=== PATIENT | male | born 1940 | race Caucasian/White ===

== ENCOUNTER 2016-04-07 14:51 | Emergency (ER) | payer OTHER ==
--- NOTE | 2016-04-07 18:13 | ED CLINICAL REPORT ---
Clinical Report - Physicians/Mid Levels [facility] [address] [place] [address] 04/07/2016 14:53 Patient: MIKAYLA PEPPER Time Seen: 15:06. Arrived- By private vehicle. Historian- patient. HISTORY OF PRESENT ILLNESS Chief Complaint: WEAKNESS. This started weeks ago and is still present and now worse. Severity described as moderate at its maximum. When seen in the E.D., severity described as moderate. Modifying factors- worsened by standing up. Relieved by nothing. Not described as a sense of rotation, movement, falling or confusion. Not described as feeling off balance, light-headed or faint. Described as feeling weak all over. No nausea, vomiting, hearing loss or tinnitus. Similar symptoms previously: Milder. Recent medical care: The patient was seen recently at another facility in a clinic. REVIEW OF SYSTEMS No headache, double vision, fainting episodes, head injury or chest pain. No palpitations, black stools, numbness, bloody stools or fever. No sore throat, cough, difficulty breathing, abdominal pain or diarrhea. No difficulty with urination, skin rash, enlarged lymph nodes, chills or joint pain. The patient has had weakness. No difficulty walking. All systems otherwise negative, except as recorded above. PAST HISTORY Problems: Anemia. Pulmonary Embolism. Hypercholesterolemia. Prostate Cancer. 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 Additional Surgeries: Biopsy of prostate. Right knee. Shoulder Surgery. Tonsillectomy. Vasectomy. Medications: Atorvastatin Calcium Oral. Lupron Depot Intramuscular. NexIUM Oral. Allergies: No Known Drug Allergy. SOCIAL HISTORY Never smoker. No alcohol use or drug use. ADDITIONAL NOTES The nursing notes have been reviewed. PHYSICAL EXAM Vital Signs: 04/07/2016 15:14 BP: 109/67. HR: 103. RR: 18. O2 saturation: 100%. Have been reviewed. Appearance: Alert. No acute distress. (PT is thin, and appears chronically ill, but does not appear toxic.). Eyes: Pupils equal, round and reactive to light. No nystagmus. Extraocular movements normal. ENT: Normal ENT inspection. Moist mucous membranes. Pharynx normal. Neck: Normal inspection. Neck supple. CVS: Normal heart rate and rhythm. Heart sounds normal. Pulses normal. Respiratory: No respiratory distress. Breath sounds normal. Abdomen: Soft and nontender. Back: Normal inspection. No CVA tenderness. Skin: Skin warm and dry. Moderate pallor. No rash. Normal skin turgor. Extremities: Extremities exhibit normal ROM. No lower extremity edema. Neuro: Alert. Oriented X 3. Mood/affect normal. Speech normal. Cranial nerves normal (as tested). No cerebellar findings. No motor deficit. No sensory deficit. LABS, X-RAYS, AND EKG EKG: EKG time: (1636). No acute process. No acute ischemia. Normal sinus rhythm. Rate: 86. Normal P waves. Normal BERTHA. RBBB. Decreased QRS voltage. Left axis deviation. Normal ST and T waves, QT and QTc. Prior EKG unavailable. The study has been interpreted contemporaneously by me. The study has been independently viewed by me. The EKG appears to be a good tracing. I agree with and confirm the computer reading of the EKG. Rhythm Strip #1: Time: (1510). Rate= 88. Normal sinus rhythm. Regular rhythm. Narrow QRS complexes. No ectopy. Conduction normal. Normal ST segments and T waves. The study was interpreted by me. Laboratory Tests: UA-Culture if indicated: (KEATON: 04/07/2016 14:56) ( MsgRcvd 04/07/2016 17:33) Final results Test Result Flag Units (Reference) URINE COLOR YELLOW URINE APPEARANCE CLOUDY URINE GLUCOSE NEGATIVE (NEGATIVE) URINE BILIRUBIN NEGATIVE (NEGATIVE) URINE KETONE NEGATIVE (NEGATIVE) URINE SPECIFIC GRAVITY 1.010 (1.010-1.030) URINE PH 6.0 (5.0-8.0) URINE PROTEIN 1+ (NEGATIVE) URINE UROBILINOGEN 0.2 EU/dL (0.2-1.0) URINE NITRITE NEGATIVE (NEGATIVE) URINE BLOOD 2+ (NEGATIVE) URINE LEUK ESTERASE POSITIVE (NEGATIVE) URINE RBC 5-10 rbc/hpf (0-1) URINE WBC 25-50 wbc/hpf (0-1) URINE EPITHELIAL CELLS 1-3 EPI/hpf (0-5) URINE BACTERIA MODERATE (2+ TO 3+) (NONE SEEN) URINE COMMENT CULTURE INDICATED URINE CULTURES ARE SET-UP BASED ON THE FOLLOWING CRITERIA:POSITIVE NITRITEPOSITIVE LEUKOCYTE ESTERASEGREATER THAN 10 WHITE BLOOD CELLSMODERATE (2+) OR GREATER BACTERIA CBC w Diff: (KEATON: 04/07/2016 16:15) ( [facility] 04/07/2016 16:49) Final results Test Result Flag Units (Reference) WHITE BLOOD COUNT 10.0 K/uL (4.5-11.5) RED BLOOD COUNT 3.14 L M/uL (4.50-5.90) HEMOGLOBIN 9.1 L gm/dL (13.5-17.5) HEMATOCRIT 28.6 L % (41.0-53.0) MEAN CELL VOLUME 91 fL (80-100) MEAN CORPUSCULAR HGB 29 pg (26-34) MEAN CORPUSCULAR HGB CONC 32 g/dL (31-37) RED CELL DISTRIBUTION WIDTH 17.1 H % (11.6-14.8) PLATELET COUNT 177 K/uL (150-400) NEUTROPHIL % 90.1 H % (50-75) LYMPH % 4.3 L % (25-40) MONO % 5.0 % (3-14) EOSINOPHIL % 0.2 % (0-4) BASOPHIL % 0.4 % (0-2) BNP: (KEATON: 04/07/2016 16:15) ( [facility] 04/07/2016 16:48) Final results Test Result Flag Units (Reference) B-TYPE NATRIURETIC PEPTIDE 30.0 pg/ml (5-100) CHEM 13 PANEL: (KEATON: 04/07/2016 16:15) ( [facility] 04/07/2016 16:46) Final results Test Result Flag Units (Reference) GLUCOSE 110 mg/dL (70-110) BUN 42 H mg/dL (7-18) CREATININE 1.6 H mg/dL (0.6-1.3) Estimated GFR 45.01 mL/min Estimated GFR- 54.55 mL/min Note: Persistent reduction over 3 months in eGFR<60 mL/min/1.73 m2 defines CKD. Patients with eGFR values>=60 mL/min/1.73 m2 may also have CKD if evidence ofpersistent proteinuria. Additional information may be foundat www.kidney.org. SODIUM 141 mmol/L (136-145) POTASSIUM 4.2 mmol/L (3.5-5.1) CHLORIDE 108 H mmol/L (98-107) CARBON DIOXIDE 20 L mmol/L (21-32) CALCIUM 8.6 mg/dL (8.5-10.1) TOTAL PROTEIN 7.0 g/dL (6.4-8.2) ALBUMIN 2.4 L g/dL (3.3-5.0) BILIRUBIN, TOTAL 0.5 mg/dL (0.0-1.0) ALKALINE PHOSPHATASE 128 H U/L (46-116) AST (SGOT) 15 U/L (15-37) ALT (SGPT) 15 U/L (12-78) MAGNESIUM 2.3 mg/dL (1.8-2.4) CPK 11 L U/L (24-260) TROPONIN I <0.05 L ng/mL (0.00-1.5) TROPONIN REFERENCE RANGE:<0.1 NEGATIVE0.1-1.5 INDETERMINANT>1.5 POSITIVE . Pulse Oximetry: 04/07/2016 15:14 O2 saturation: 100%. (FIO2 - room air). Interpretation: normal. PROGRESS AND PROCEDURES Course of Care: Pt was worked up for his weakness and fatigue, and was found to have moderate anemia, which I suspect is from his chronic disease and cancer treatment. He was also found to have a UTI, for which he was started on Bactrim. Pt wished to go home, and I felt this was reasonable. Patient counseled in person regarding the patient's stable condition, test results, diagnosis and need for follow-up. Concerns were addressed. Old medical records reviewed. Disposition: Discharged. Condition: stable and improved. CLINICAL IMPRESSION Moderate chronic anemia associated with cancer. Acute urinary tract infection with cystitis. INSTRUCTIONS Drink plenty of fluids. Warnings: GENERAL WARNINGS: Return or contact your physician immediately if your condition worsens or changes unexpectedly, if not improving as expected, or if other problems arise. Prescription Medications: Bactrim DS 800 mg / 160 mg: take 1 tablet orally every 12 hours for 7 days. No refill. Substitution is permissible. Follow-up: Follow up with your doctor as scheduled. Understanding of the discharge instructions verbalized by patient and family. (Electronically signed by Radha Gonzalez MD 04/11/2016 20:02) Addenda for MIKAYLA PEPPER VisitID: [id number] Date: 04/07/2016 04/10/2016 13:55 Phone call placed to pt at [phone] to change antibiotic to Cipro 500 mg BID x 5 days, advised by SHAN Fuller. Voicemail message left to call back. (Electronically signed by Josefina Coats R.N. - 04/10/2016 13:55) 04/10/2016 14:22 Called Rx into [facility] after speaking to on phone. Advised her also that pharmacy closes at 3pm today. (Electronically signed by Josefina Coats R.N. - 04/10/2016 14:22)
--- NOTE | 2016-04-07 18:13 | ED ORDER SUMMARY ---
..... Patient: MIKAYLA PEPPER OrderSheet [facility] VisitID: [id number] [place] [address] 75y, M Registration Date/Time: 04/07/2016 ORDER SHEET Weight: 66.6 kg (stated) Allergies: No Known Drug Allergy GENERAL ORDERS: Individual Pension Adviser (Continuous) (15:04/07/2016 Mike VINCENT) (16:04 HOShaughnessy R.N.) Cardiac Panel Stat (:04/07/2016 Mike VINCENT) (Ack 15:12 LTapper) (17:05 HOShaughnessy R.N.) BNP Urgent (:04/07/2016 Mike VINCENT) (Ack 15:12 LTapper) (17:05 HOShaughnessy R.N.) UA-Culture if indicated Urgent (:04/07/2016 Mike VINCENT) (Ack 15:12 LTapper) (17:05 HOShaughnessy R.N.) Oxygen (2 L/min) (NC) (15:04/07/2016 Mike VINCENT) (16:04 HOShaughnessy R.N.) Pulse oximeter (:04/07/2016 Mike VINCENT) (16:04 HOShaughnessy R.N.) EKG - ER Stat (:04/07/2016 Mike VINCENT) (Ack 15:12 LTapper) (16:40 RKaruga) MEDICATION ORDERS: Bactrim DS PO (Tablet 800-160 mg) 1 tab (NOW) (17:35 04/07/2016 Miek VINCENT) (17:42 HOShaughnessy R.N.) IV FLUIDS: IV NS : initial bolus 1000 mL (1000 mL/hr), then none - (NOW) (15:04/07/2016 Mike VINCENT) (16:03 HOShaughnessy R.N.) ORDER SHEET NOTES: [Electronically signed by Bruno Howe R.N. (19:30 04/07/2016)] [Electronically signed by Radha Gonzalez MD (20:02 04/11/2016)] [Electronically locked/signed by Bruno Howe R.N. (19:30 04/07/2016)]
--- NOTE | 2016-04-07 18:13 | ED ORDER SUMMARY ---
..... Patient: MIKAYLA PEPPER OrderSheet [facility] VisitID: [id number] [place] [address] 75y, M Registration Date/Time: 04/07/2016 ORDER SHEET Weight: 66.6 kg (stated) Allergies: No Known Drug Allergy GENERAL ORDERS: Education And Outreach Coordinator (Continuous) (15:04/07/2016 Mike VINCENT) (16:04 HOShaughnessy R.N.) Cardiac Panel Stat (:04/07/2016 Mike VINCENT) (Ack 15:12 LTapper) (17:05 HOShaughnessy R.N.) BNP Urgent (:04/07/2016 Mike VINCENT) (Ack 15:12 LTapper) (17:05 HOShaughnessy R.N.) UA-Culture if indicated Urgent (:04/07/2016 Mike VINCENT) (Ack 15:12 LTapper) (17:05 HOShaughnessy R.N.) Oxygen (2 L/min) (NC) (15:04/07/2016 Mike VINCENT) (16:04 HOShaughnessy R.N.) Pulse oximeter (:04/07/2016 Mike VINCENT) (16:04 HOShaughnessy R.N.) EKG - ER Stat (:04/07/2016 Mike VINCENT) (Ack 15:12 LTapper) (16:40 RKaruga) MEDICATION ORDERS: Bactrim DS PO (Tablet 800-160 mg) 1 tab (NOW) (17:35 04/07/2016 Mike VINCENT) (17:42 HOShaughnessy R.N.) IV FLUIDS: IV NS : initial bolus 1000 mL (1000 mL/hr), then none - (NOW) (15:04/07/2016 Mike VINCENT) (16:03 HOShaughnessy R.N.) ORDER SHEET NOTES: [Electronically signed by Bruno Howe R.N. (19:30 04/07/2016)] [Electronically signed by Radha Gonzalez MD (20:02 04/11/2016)] [Electronically locked/signed by Bruno Howe R.N. (19:30 04/07/2016)]
--- NOTE | 2016-04-07 18:13 | ED NURSING NOTES ---
Clinical Report - Nurses [facility] [address] [place] [address] 04/07/2016 14:53 Patient: MIKAYLA PEPPER TRIAGE Chief Complaint: FATIGUE (weakness). --15:16 Bruno Howe R.N. 15:14 04/07/16. BP: 109/67. HR: 103. RR: 18. O2 saturation: 100%. --15:16 Bruno Howe R.N. 15:35 04/07/16. Temp: 98.4 F (oral). --15:35 Bruno Howe R.N. Alert. No acute distress. JOSH COMA SCORE: [place] Coma Scale: 15- eyes open spontaneously (4); best verbal response- oriented x 4 (5); best motor response- obeys commands (6). --15:36 Bruno Howe R.N. Weight: 66.6 kg stated. Height/Length: 72 inches Per Patient. BMI: 19.9. --15:35 Bruno Howe R.N. Medications Atorvastatin Calcium Oral. Lupron Depot Intramuscular. NexIUM Oral. --19:30 Bruno Howe R.N. Allergies No Known Drug Allergy. --19:30 Bruno Howe R.N. History Arrived by private vehicle, and accompanied by family. Onset was gradual. (about 3 weeks). --15:16 Bruno Howe R.N. ( Patient presents to the ED at the referral from the clinic for symptoms of weakness and weight loss. Patient has been diagnosed with prostate cancer with metastasis to the bone.). --15:17 Bruno Howe R.N. The patient has had weakness. --16:05 Bruno Howe R.N. FALL RISK ASSESSMENT: Fall risk assessment completed. Risk factors identified include postural hypotension and patient age greater than 65 years, history of fall and impairment of mobility. Fall interventions initiated. Patient placed on stretcher. Side rails up x1. Brakes on Bed in low position. Family at bedside. Call light in reach of patient. Instructed not to get up without assistance. --16:05 Bruno Howe R.N. PROBLEMS: Anemia. Pulmonary Embolism. Hypercholesterolemia. Prostate Cancer. 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 --16:04 Bruno Howe R.N. ADDITIONAL SURGERIES: Biopsy of prostate. Right knee. Shoulder Surgery. Tonsillectomy. Vasectomy. --16:04 Bruno Howe R.N. NURSING PROGRESS NOTES 16:03 04/07/2016 Site #1 started via IV in the right hand with an 20g angiocath; one attempt. Saline lock flushed with 10 mL saline. --16:03 Bruno Howe R.N. 16:03 04/07/2016 Started IV Fluids IV NS (Saline); bolus of 1000 mL wide open via site #1. Allergies verified and confirmed 5 rights. IV patency established. IV site checked: no pain, redness, or swelling. IV flushed thoroughly pre- and post-medication administration. --16:03 Bruno Howe R.N. 16:33 04/07/16. BP: 114/49. HR: 93. RR: 18. O2 saturation: 99%. --16:33 Bruno Howe R.N. The patient is calm. Overall patient status is improved- he states feels the same. --16:34 Bruno Howe R.N. 16:36. EKG time: (1636). EKG was performed by a tech and shown to the ED physician. --16:40 Prachi Jasso 16 fr in/out catheterization. During procedure hand hygiene observed and sterile equipment and aseptic technique used. Return of 950 mL urine. He tolerated procedure well. Patient ID band checked: patient confirmed. Instructions provided to collect clean catch urine and patient verbalized understanding urine collected with return of yellow-colored cloudy urine; odor is normal; sample sent to lab for urinalysis and culture. Specimen labeled in the presence of the patient. --17:05 Bruno Howe R.N. 17:07 04/07/16. BP: 117/50. HR: 71. RR: 16. O2 saturation: 99%. Pain level now: 0/10. --17:07 Bruno Howe R.N. 17:42 04/07/2016 Bactrim DS (Sulfamethoxazole-TMP DS) PO Tablets 1 tab given. Allergies verified and confirmed 5 rights. --17:42 Bruno Howe R.N. 17:56 04/07/16. BP: 100/55. HR: 91. RR: 16. O2 saturation: 100%. --17:56 Bruno Howe R.N. The patient is calm. Overall patient status is improved- he states feels better. RESPIRATORY: No respiratory distress. Breath sounds normal. CVS: Normal sinus rhythm noted. SKIN: Skin is warm and dry. Skin color within normal limits. --17:56 Bruno Howe R.N. 19:28 04/07/2016 IV Fluids IV NS Discontinued: bag #1 completed. Total amount infused: 1000 mL. IV patency established. IV site checked: no pain, redness, or swelling. IV flushed thoroughly. --19:28 Bruno Howe R.N. DISPOSITION / DISCHARGE Condition at departure: improved. The goals identified in the patient's plan of care were met. No learning barriers present. Discharge instructions provided and reviewed with the patient. Reviewed medication(s) side effects, precautions, dosing and course information. Reviewed referrals. The patient was discharged home and accompanied by spouse and family. He left the Emergency Department ambulatory and via private vehicle. Family member driving. FALL RISK ASSESSMENT: Fall risk assessment completed. No fall risk identified. --18:46 Bruno Howe R.N. 18:44 04/07/16. BP: 99/58. HR: 95. RR: 16. O2 saturation: 100%. Temp: 98.6 F. --18:46 Bruno Howe R.N. Locked/Released at 04/07/2016 19:30 by Bruno Howe R.N.
--- NOTE | 2016-04-11 20:03 | ED MAR SUMMARY ---
..... Medication Administration Record [facility] [address] [place] [address] Patient: MIKAYLA PEPPER Visit ID: [id number] 75y, M Weight: 66.6 kg Height/Length: 72 in BMI: 19.9 ALLERGIES: No Known Drug Allergy Start 16:03 04/07/2016 Bruno Howe R.N., Stop 19:28 04/07/2016 Bruno Howe R.N. Medication Administered: IV NS (SALINE), Dose: IV Fluids, Bolus: 1000 mL wide open, Site: #1 right hand. Medication Ordered: IV NS : initial bolus 1000 mL (1000 mL/hr), then none - (NOW). Given 17:42 04/07/2016 Bruno Howe R.N. Medication Administered: BACTRIM DS [PO] (SULFAMETHOXAZOLE-TMP DS), Dose: 1 tab Tablets PO. Medication Ordered: Bactrim DS PO (Tablet 800-160 mg) 1 tab (NOW).
--- NOTE | 2016-04-11 20:03 | ED DISCHARGE INSTRUCTIONS ---
Patient: MIKAYLA PEPPER General Instructions [facility] VisitID: [id number] [place] [address] 75y, M Registration Date/Time: 04/07/2016 Moderate chronic anemia associated with cancer. Acute urinary tract infection with cystitis. INSTRUCTIONS Drink plenty of fluids. Warnings: GENERAL WARNINGS: Return or contact your physician immediately if your condition worsens or changes unexpectedly, if not improving as expected, or if other problems arise. Prescription Medications: Bactrim DS 800 mg / 160 mg: take 1 tablet orally every 12 hours for 7 days. No refill. Substitution is permissible. Follow-up: Follow up with your doctor as scheduled. Understanding of the discharge instructions verbalized by patient and family. ADDITIONAL INFORMATION Anemia [Type Not Specified, Adult] Red blood cells carry oxygen to the tissues of the body. Anemia is a condition where the size or number of red blood cells in the body is reduced. Iron is needed to make red blood cells. The most common cause of anemia is iron deficiency. This may be due to: i) Blood loss (heavy menstrual periods or bleeding from the stomach or intestines); or, ii) Not eating enough iron-containing foods. Other causes of anemia include certain vitamin deficiencies, chronic kidney disease or certain other chronic illnesses. Anemia causes a feeling of being tired and run down. When anemia becomes severe, the skin becomes pale and there is shortness of breath with exertion. Headaches, dizziness, leg cramps with exertion, drowsiness and fatigue are other common symptoms. Home Care: If you are having symptoms of anemia listed above: -- Do not overexert yourself. -- Talk to your doctor before flying on an airplane or traveling to high altitudes. Follow Up with your doctor as advised by our staff. Additional blood testing may be required to determine the exact cause of your anemia. If testing was done on this visit, it may take several days to get all of the results. You may call this facility or follow up with your own doctor to get the results. Get Prompt Medical Attention if any of the following occur: -- Shortness of breath or chest pain -- Worsening of dizziness, fainting -- Vomiting blood or passing red or black-colored stool Bladder Infection,Male (Adult) A bladder infection ("cystitis" or "UTI") usually causes a constant urge to urinate, and a burning when passing urine. Urine may be cloudy, smelly or dark. There may be also be pain in the lower abdomen. Cystitis in males is not common. It may be caused by a partial blockage in the urinary system that keeps the bladder from emptying completely. This is most often related to an enlarged prostate gland. Home Care: Drink lots of fluids (at least 6-8 glasses a day). This will flush the bacteria out of your bladder. Avoid sexual intercourse until your symptoms are gone. Avoid caffeine, alcohol, and spicy foods. They could irritate the bladder. A bladder infection is treated with antibiotics. You may also be given Pyridium (generic - phenazopyridine) to reduce burning with urination. This will cause urine to become a bright orange color, which can stain clothing. Follow Up with your doctor or this facility if ALL symptoms have not cleared within five days. It is important to keep your follow up appointment to discuss with your doctor the need for further tests of the urinary tract. Get Prompt Medical Attention if any of the following occur: Fever of 100.4F (38C) or higher, or as directed by your healthcare provider No improvement by the third day of treatment Increasing back or abdominal pain Repeated vomiting; unable to keep medicine down Weakness, dizziness or fainting You have been given the following additional information: Anemia, Type Not Specified (Adult) Bladder Infection, Male (Adult) (Electronically signed by Radha Gonzalez MD 04/11/2016 20:02)
--- NOTE | 2016-04-11 20:03 | ED MED RECONCILIATION SUMMARY ---
Patient: MIKAYLA PEPPER Medication Reconciliation Report [facility] VisitID: [id number] [address] [place] [address] 75y, M Registration Date/Time: 04/07/2016 Weight: 66.6 kg Height/Length: 72 in. BMI: 19.9 ALLERGIES: No Known Drug Allergy The patient's Home Medications are listed below: THE FOLLOWING MEDICATIONS NEED TO BE RECONCILED: Atorvastatin Calcium Oral Lupron Depot Intramuscular NexIUM Oral The source(s) of the original Home Medication information: Not obtained. The following Medications were given to the patient in the Emergency Department: IV NS IV Fluids bolus 1000 mL wide open, administered: 04/07/2016 4:03:00 PM Bactrim DS [PO] PO 1 tab, administered: 04/07/2016 5:42:00 PM The following Medications were prescribed to the patient: Bactrim DS 800 mg / 160 mg: take 1 tablet orally every 12 hours for 7 days. No refill. Substitution is permissible. -- Radha Gonzalez MD
--- NOTE | 2016-04-11 20:03 | ED MAR SUMMARY ---
..... Medication Administration Record [facility] [address] [place] [address] Patient: MIKAYLA PEPPER Visit ID: [id number] 75y, M Weight: 66.6 kg Height/Length: 72 in BMI: 19.9 ALLERGIES: No Known Drug Allergy Start 16:03 04/07/2016 Bruno Howe R.N., Stop 19:28 04/07/2016 Bruno Howe R.N. Medication Administered: IV NS (SALINE), Dose: IV Fluids, Bolus: 1000 mL wide open, Site: #1 right hand. Medication Ordered: IV NS : initial bolus 1000 mL (1000 mL/hr), then none - (NOW). Given 17:42 04/07/2016 Bruno Howe R.N. Medication Administered: BACTRIM DS [PO] (SULFAMETHOXAZOLE-TMP DS), Dose: 1 tab Tablets PO. Medication Ordered: Bactrim DS PO (Tablet 800-160 mg) 1 tab (NOW).
--- NOTE | 2016-04-11 20:03 | ED MED RECONCILIATION SUMMARY ---
Patient: MIKAYLA PEPPER Medication Reconciliation Report [facility] VisitID: [id number] [address] [place] [address] 75y, M Registration Date/Time: 04/07/2016 Weight: 66.6 kg Height/Length: 72 in. BMI: 19.9 ALLERGIES: No Known Drug Allergy The patient's Home Medications are listed below: THE FOLLOWING MEDICATIONS NEED TO BE RECONCILED: Atorvastatin Calcium Oral Lupron Depot Intramuscular NexIUM Oral The source(s) of the original Home Medication information: Not obtained. The following Medications were given to the patient in the Emergency Department: IV NS IV Fluids bolus 1000 mL wide open, administered: 04/07/2016 4:03:00 PM Bactrim DS [PO] PO 1 tab, administered: 04/07/2016 5:42:00 PM The following Medications were prescribed to the patient: Bactrim DS 800 mg / 160 mg: take 1 tablet orally every 12 hours for 7 days. No refill. Substitution is permissible. -- Radha Gonzalez MD
== END 2016-04-07 18:47 | disposition home or self-care (01) ==
LOC: ED SRH 14:51
DX: D63.0 Anemia in neoplastic disease (principal); C61 Malignant neoplasm of prostate; N30.00 Acute cystitis without hematuria; E78.00 Pure hypercholesterolemia, unspecified; Z79.899 Other long term (current) drug therapy
CPT/HCPCS: 90004; 90100; 90148; 90469; 90616; 91320; 92610; 92720; 95059

== ENCOUNTER 2016-04-24 09:37 | Emergency (ER) | payer OTHER ==
--- NOTE | 2016-04-24 11:48 | ED CLINICAL REPORT ---
Clinical Report - Physicians/Mid Levels [facility] [address] [place] [address] 04/24/2016 9:38 [id number] Time Seen: 10:08 Apr 24 2016. Arrived- By private vehicle. Historian- patient. CPT: ER phys charges level 4 (#[id number]). HISTORY OF PRESENT ILLNESS Chief Complaint: FERREIRA PROBLEM. This started today Pt cut his ferreira and the the proximal end with the balloon retracted and eneded up in the bladder. He does not have a good reason as to why he cut the ferreira. He was discharged recently from another hospital with prostate cancer and a ferreira. The ferreira is new to him. and is still present. The problem is described as moderate. No penile discharge, discomfort with urination, urinary frequency, genital lesion or testicular pain. He has had Ferreira catheter problems. Sexual history is noncontributory. Similar symptoms previously: None. Recent medical care: The patient was seen recently by a health care provider. REVIEW OF SYSTEMS No flank pain, hematuria, abdominal pain, vomiting or diarrhea. No sore throat, chest pain, difficulty breathing, cough or joint pain. No skin rash. Poor po. All systems otherwise negative, except as recorded above. PAST HISTORY Has Ferreira catheter. (for 3 days). Prostate cancer. Medications: Cipro Oral, , UTI. Atorvastatin Calcium Oral. Lupron Depot Intramuscular. NexIUM Oral. Allergies: No Known Drug Allergy. SOCIAL HISTORY Former smoker. No alcohol use or drug use. ADDITIONAL NOTES The nursing notes have been reviewed. PHYSICAL EXAM Vital Signs: 04/24/2016 10:04 BP: 128/64. HR: 89. RR: 16. O2 saturation: 99%. Temp: 97.1 F. Appearance: Alert. No acute distress. ENT: Pharynx normal. Neck: Neck supple. CVS: Heart sounds normal. Respiratory: No respiratory distress. Abdomen: Soft and nontender. : Normal genitalia. (No ferreira catheter remnants seen.). Skin: Skin warm. Normal skin color. No rash. Extremities: Extremities exhibit normal ROM. Neuro: No motor deficit. No sensory deficit. PROGRESS AND PROCEDURES Course of Care: Bedside US by myself showed suspicious shadow for FB, floating in bladder. Discussed with urology and she recommends placing another ferreira and she will call patient on Monday for appointment to evaluate bladder FB. Pt is able to dribble urine and has no pain. There is no blood in the urine. The bladder scan shows 347 ml in the bladder. New ferreira catheter placed. Discussed case with patient's primary care provider, (urologist DR. Radha Alonso: Rusty and this is her patient.). Reviewed test results. Agreed upon treatment plan. Health care provider will see patient in office. Patient/family counseled. Disposition: Discharged. Condition: stable. CLINICAL IMPRESSION Bladder FB due to cut ferreira. Metastatic prostate cancer. New 14 F ferreira placement. INSTRUCTIONS Warnings: Further evaluation is necessary. GENERAL WARNINGS: Return or contact your physician immediately if your condition worsens or changes unexpectedly, if not improving as expected, or if other problems arise. Your Current Medications: CONTINUE TAKING THE FOLLOWING MEDICATIONS: Atorvastatin Calcium Oral. Cipro Oral : UTI. Lupron Depot Intramuscular. NexIUM Oral. Follow-up: Follow up with your doctor Your urologist will call you tomorrow. Understanding of the discharge instructions verbalized by patient and family. Discharge instructions reviewed with and understanding was verbalized by spouse. (Electronically signed by David Govea MD 04/24/2016 18:09)
--- NOTE | 2016-04-24 11:48 | ED NURSING NOTES ---
Clinical Report - Nurses [facility] [address] [place] [address] 04/24/2016 9:38 Patient: MIKAYLA PEPPER TRIAGE Triage time 10:04. Acuity: LEVEL 3. Chief Complaint: FERREIRA PROBLEM and (Pt cut his catheter yesterday because he thought he pas going to urinate on himself. Pt did not pull out the whole catheter.). 10:13 04/24/16. SEPSIS SCREEN: Sepsis Screen. Negative (no infection suspected/documented). JOSH COMA SCORE: Brent Coma Scale: 15- eyes open spontaneously (4); best verbal response- oriented x 4 (5); best motor response- obeys commands (6). --10:14 Mikayla Conroy R.N. 10:04 04/24/16. BP: 128/64. HR: 89. RR: 16. O2 saturation: 99% on room air. Temp: 97.1 F (axillary). --10:14 Mikayla Conroy R.N. 10:05 04/24/16. Pain level now: 0/10. --14:26 Mikayla Conroy R.N. Weight: 68 kg stated. Height/Length: 72 inches Per Patient. BMI: 20.3. --10:14 Mikayla Conroy R.N. Medications Atorvastatin Calcium Oral. Lupron Depot Intramuscular. NexIUM Oral. --10:11 Mikayla Conroy R.N. Cipro Oral, , UTI. --10:11 Mikayla Conroy R.N. Allergies No Known Drug Allergy. --10:09 Mikayla Conroy R.N. History Historian: patient and family. This started yesterday. SOCIAL HX: Former smoker, end date 1973 (cigarette). No alcohol use or drug use. ABUSE ASSESSMENT: No report of abuse. --10:14 Mikayla Conroy R.N. PROBLEMS: UTI - Urinary Tract Infection. Anemia. Pulmonary Embolism. Hypercholesterolemia. Prostate Cancer. 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 --10:09 Mikayla Conroy R.N. ADDITIONAL SURGERIES: Biopsy of prostate. Right knee. Shoulder Surgery. Tonsillectomy. Vasectomy. --10:10 Mikayla Conroy R.N. Interventions ID band on patient. To treatment room. --10:14 Mikayla Conroy R.N. PHYSICAL ASSESSMENT late entry -10:15. Ambulatory to room. GENERAL / NEURO / PSYCH: Alert. Appears in no acute distress. The patient is disoriented to person, place and situation. HEENT: Mucous membranes are pink. RESPIRATORY: Respirations not labored. Breath sounds within normal limits. CVS: Normal heart rate and rhythm. Capillary refill less than 2 seconds. GI / : Abdomen soft and nontender. Bowel sounds within normal limits. ( Bladder scanner shows 347ml. Pt states he has been dribbling since he cut the catheter yesterday or the day before - poor historian.). SKIN: Skin is pale. Skin is warm and dry. Skin is cool. ( Poor turgor). --10:40 Mikayla Conroy R.N. NURSING PROGRESS NOTES 10:35. Patient gowned. Head of bed elevated. Reassurance given. Two patient identifiers checked. Call light placed in reach. Bed placed in lowest position. Brakes of bed on. Patient ready for evaluation- chart flagged. ( Bladder US done by MD - suspicious for foreign body in the bladder.). --10:41 Mikayla Conroy R.N. ( paged [facility] urologist Radha Alonso). --10:45 Beba London 11:24 04/24/16. 14 fr ferreira catheter placed. Reason for indwelling catheter: retention. During procedure hand hygiene observed and sterile equipment and aseptic technique used. Return of yellow-colored clear urine; attached to leg bag and secured with stabilization device. He tolerated procedure well. --11:24 Mikayla Conroy R.N. late entry -11:25. ( Correction: Pt's urine cloudy and has copious sediment.). --11:40 Mikayla Conroy R.N. DISPOSITION / DISCHARGE 11:45 04/24/16. Departure time: 1140. Condition at departure: unchanged and stable. ( Changed ferreira bag to a leg bag.). No learning barriers present. Discharge instructions provided and reviewed with the patient and spouse. Reviewed warnings. Reviewed referrals. Patient and spouse verbalized understanding. Written instructions provided in Albanian. The patient was discharged by the physician. He was discharged home and accompanied by spouse. He left the Emergency Department ambulatory and via private vehicle. Spouse driving. --11:47 Mikayla Conroy R.N. 11:45 04/24/16. BP: 128/66. HR: 89. RR: 16. O2 saturation: 99% on room air. Temp: 97.1 F (axillary). Pain level now: 0/10. --11:47 Mikayla Conroy R.N. Locked/Released at 04/24/2016 14:26 by Mikayla Conroy R.N.
--- NOTE | 2016-04-24 11:48 | ED ORDER SUMMARY ---
..... Patient: MIKAYLA PEPPER OrderSheet [facility] VisitID: [id number] [address] [place] [address] 75y, M Registration Date/Time: 04/24/2016 ORDER SHEET Weight: 68.0 kg (stated) Allergies: No Known Drug Allergy GENERAL ORDERS: Bladder Scan (10:13 04/24/2016 Robert VINCENT) [facility] (10:41 Caden Lundberg) Giles Catheter (10:56 04/24/2016 Robert VINCENT) (11:23 Caden Lundberg) MEDICATION ORDERS: IV FLUIDS: ORDER SHEET NOTES: [Electronically signed by Mikayla Conroy R.N. (14:04/24/2016)] [Electronically signed by David Govea MD (18:09 04/24/2016)] [Electronically locked/signed by Mikayla Conroy R.N. (14:04/24/2016)]
--- NOTE | 2016-04-24 11:48 | ED CLINICAL REPORT ---
Clinical Report - Physicians/Mid Levels [facility] [address] [place] [address] 04/24/2016 9:38 [id number] Time Seen: 10:08 Apr 24 2016. Arrived- By private vehicle. Historian- patient. CPT: ER phys charges level 4 (#[id number]). HISTORY OF PRESENT ILLNESS Chief Complaint: FERREIRA PROBLEM. This started today Pt cut his ferreira and the the proximal end with the balloon retracted and eneded up in the bladder. He does not have a good reason as to why he cut the ferreira. He was discharged recently from another hospital with prostate cancer and a ferreira. The ferreira is new to him. and is still present. The problem is described as moderate. No penile discharge, discomfort with urination, urinary frequency, genital lesion or testicular pain. He has had Ferreira catheter problems. Sexual history is noncontributory. Similar symptoms previously: None. Recent medical care: The patient was seen recently by a health care provider. REVIEW OF SYSTEMS No flank pain, hematuria, abdominal pain, vomiting or diarrhea. No sore throat, chest pain, difficulty breathing, cough or joint pain. No skin rash. Poor po. All systems otherwise negative, except as recorded above. PAST HISTORY Has Ferreira catheter. (for 3 days). Prostate cancer. Medications: Cipro Oral, , UTI. Atorvastatin Calcium Oral. Lupron Depot Intramuscular. NexIUM Oral. Allergies: No Known Drug Allergy. SOCIAL HISTORY Former smoker. No alcohol use or drug use. ADDITIONAL NOTES The nursing notes have been reviewed. PHYSICAL EXAM Vital Signs: 04/24/2016 10:04 BP: 128/64. HR: 89. RR: 16. O2 saturation: 99%. Temp: 97.1 F. Appearance: Alert. No acute distress. ENT: Pharynx normal. Neck: Neck supple. CVS: Heart sounds normal. Respiratory: No respiratory distress. Abdomen: Soft and nontender. : Normal genitalia. (No ferreira catheter remnants seen.). Skin: Skin warm. Normal skin color. No rash. Extremities: Extremities exhibit normal ROM. Neuro: No motor deficit. No sensory deficit. PROGRESS AND PROCEDURES Course of Care: Bedside US by myself showed suspicious shadow for FB, floating in bladder. Discussed with urology and she recommends placing another ferreira and she will call patient on Monday for appointment to evaluate bladder FB. Pt is able to dribble urine and has no pain. There is no blood in the urine. The bladder scan shows 347 ml in the bladder. New ferreira catheter placed. Discussed case with patient's primary care provider, (urologist DR. Radha Alonso: Rusty and this is her patient.). Reviewed test results. Agreed upon treatment plan. Health care provider will see patient in office. Patient/family counseled. Disposition: Discharged. Condition: stable. CLINICAL IMPRESSION Bladder FB due to cut ferreira. Metastatic prostate cancer. New 14 F ferreira placement. INSTRUCTIONS Warnings: Further evaluation is necessary. GENERAL WARNINGS: Return or contact your physician immediately if your condition worsens or changes unexpectedly, if not improving as expected, or if other problems arise. Your Current Medications: CONTINUE TAKING THE FOLLOWING MEDICATIONS: Atorvastatin Calcium Oral. Cipro Oral : UTI. Lupron Depot Intramuscular. NexIUM Oral. Follow-up: Follow up with your doctor Your urologist will call you tomorrow. Understanding of the discharge instructions verbalized by patient and family. Discharge instructions reviewed with and understanding was verbalized by spouse. (Electronically signed by David Govea MD 04/24/2016 18:09)
--- NOTE | 2016-04-24 11:48 | ED NURSING NOTES ---
Clinical Report - Nurses [facility] [address] [place] [address] 04/24/2016 9:38 Patient: MIKAYLA PEPPER TRIAGE Triage time 10:04. Acuity: LEVEL 3. Chief Complaint: FERREIRA PROBLEM and (Pt cut his catheter yesterday because he thought he pas going to urinate on himself. Pt did not pull out the whole catheter.). 10:13 04/24/16. SEPSIS SCREEN: Sepsis Screen. Negative (no infection suspected/documented). JOSH COMA SCORE: Jasper Coma Scale: 15- eyes open spontaneously (4); best verbal response- oriented x 4 (5); best motor response- obeys commands (6). --10:14 Mikayla Conroy R.N. 10:04 04/24/16. BP: 128/64. HR: 89. RR: 16. O2 saturation: 99% on room air. Temp: 97.1 F (axillary). --10:14 Mikayla Conroy R.N. 10:05 04/24/16. Pain level now: 0/10. --14:26 Mikayla Conroy R.N. Weight: 68 kg stated. Height/Length: 72 inches Per Patient. BMI: 20.3. --10:14 Mikayla Conroy R.N. Medications Atorvastatin Calcium Oral. Lupron Depot Intramuscular. NexIUM Oral. --10:11 Mikayla Conroy R.N. Cipro Oral, , UTI. --10:11 Mikayla Conroy R.N. Allergies No Known Drug Allergy. --10:09 Mikayla Conroy R.N. History Historian: patient and family. This started yesterday. SOCIAL HX: Former smoker, end date 1973 (cigarette). No alcohol use or drug use. ABUSE ASSESSMENT: No report of abuse. --10:14 Mikayla Conroy R.N. PROBLEMS: UTI - Urinary Tract Infection. Anemia. Pulmonary Embolism. Hypercholesterolemia. Prostate Cancer. 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 --10:09 Mikayla Conroy R.N. ADDITIONAL SURGERIES: Biopsy of prostate. Right knee. Shoulder Surgery. Tonsillectomy. Vasectomy. --10:10 Mikayla Conroy R.N. Interventions ID band on patient. To treatment room. --10:14 Mikayla Conroy R.N. PHYSICAL ASSESSMENT late entry -10:15. Ambulatory to room. GENERAL / NEURO / PSYCH: Alert. Appears in no acute distress. The patient is disoriented to person, place and situation. HEENT: Mucous membranes are pink. RESPIRATORY: Respirations not labored. Breath sounds within normal limits. CVS: Normal heart rate and rhythm. Capillary refill less than 2 seconds. GI / : Abdomen soft and nontender. Bowel sounds within normal limits. ( Bladder scanner shows 347ml. Pt states he has been dribbling since he cut the catheter yesterday or the day before - poor historian.). SKIN: Skin is pale. Skin is warm and dry. Skin is cool. ( Poor turgor). --10:40 Mikayla Conroy R.N. NURSING PROGRESS NOTES 10:35. Patient gowned. Head of bed elevated. Reassurance given. Two patient identifiers checked. Call light placed in reach. Bed placed in lowest position. Brakes of bed on. Patient ready for evaluation- chart flagged. ( Bladder US done by MD - suspicious for foreign body in the bladder.). --10:41 Mikayla Conroy R.N. ( paged [facility] urologist Radha Alonso). --10:45 Beba London 11:24 04/24/16. 14 fr ferreira catheter placed. Reason for indwelling catheter: retention. During procedure hand hygiene observed and sterile equipment and aseptic technique used. Return of yellow-colored clear urine; attached to leg bag and secured with stabilization device. He tolerated procedure well. --11:24 Mikayla Conroy R.N. late entry -11:25. ( Correction: Pt's urine cloudy and has copious sediment.). --11:40 Mikayla Conroy R.N. DISPOSITION / DISCHARGE 11:45 04/24/16. Departure time: 1140. Condition at departure: unchanged and stable. ( Changed ferreira bag to a leg bag.). No learning barriers present. Discharge instructions provided and reviewed with the patient and spouse. Reviewed warnings. Reviewed referrals. Patient and spouse verbalized understanding. Written instructions provided in Faroese. The patient was discharged by the physician. He was discharged home and accompanied by spouse. He left the Emergency Department ambulatory and via private vehicle. Spouse driving. --11:47 Mikayla Conroy R.N. 11:45 04/24/16. BP: 128/66. HR: 89. RR: 16. O2 saturation: 99% on room air. Temp: 97.1 F (axillary). Pain level now: 0/10. --11:47 Mikayla Conroy R.N. Locked/Released at 04/24/2016 14:26 by Mikayla Conroy R.N.
--- NOTE | 2016-04-24 11:48 | ED ORDER SUMMARY ---
..... Patient: MIKAYLA PEPPER OrderSheet [facility] VisitID: [id number] [address] [place] [address] 75y, M Registration Date/Time: 04/24/2016 ORDER SHEET Weight: 68.0 kg (stated) Allergies: No Known Drug Allergy GENERAL ORDERS: Bladder Scan (10:13 04/24/2016 Robert VINCENT) [facility] 10:[facility] (10:41 Caden Lundberg) Giles Catheter (10:56 04/24/2016 Robert VINCENT) (11:23 Caden Lundberg) MEDICATION ORDERS: IV FLUIDS: ORDER SHEET NOTES: [Electronically signed by Mikayla Conroy R.N. (14:04/24/2016)] [Electronically signed by David Govea MD (18:09 04/24/2016)] [Electronically locked/signed by Mikayla Conroy R.N. (14:04/24/2016)]
--- NOTE | 2016-04-24 18:10 | ED MAR SUMMARY ---
..... Medication Administration Record [facility] [address], [place] [id number] Patient: MIKAYLA PEPPER Visit ID: [id number] 75y, M Weight: 68.0 kg Height/Length: 72 in BMI: 20.3 ALLERGIES: No Known Drug Allergy
--- NOTE | 2016-04-24 18:10 | ED MED RECONCILIATION SUMMARY ---
Patient: MIKAYLA PEPPER Medication Reconciliation Report [facility] VisitID: [id number] [address] [place] [address] 75y, M Registration Date/Time: 04/24/2016 Weight: 68.0 kg Height/Length: 72 in. BMI: 20.3 ALLERGIES: No Known Drug Allergy The patient's Home Medications are listed below: CONTINUE TAKING THE FOLLOWING MEDICATIONS: Atorvastatin Calcium Oral Cipro Oral, UTI Lupron Depot Intramuscular NexIUM Oral The source(s) of the original Home Medication information: Not obtained. The following Medications were given to the patient in the Emergency Department: None. The following Medications were prescribed to the patient: None.
--- NOTE | 2016-04-24 18:10 | ED DISCHARGE INSTRUCTIONS ---
Patient: MIKAYLA PEPPER General Instructions [facility] VisitID: [id number] [place] [address] 75y, M Registration Date/Time: 04/24/2016 Bladder FB due to cut kenny. Metastatic prostate cancer. New 14 F kenny placement. INSTRUCTIONS Warnings: Further evaluation is necessary. GENERAL WARNINGS: Return or contact your physician immediately if your condition worsens or changes unexpectedly, if not improving as expected, or if other problems arise. Your Current Medications: CONTINUE TAKING THE FOLLOWING MEDICATIONS: Atorvastatin Calcium Oral. Cipro Oral : UTI. Lupron Depot Intramuscular. NexIUM Oral. Follow-up: Follow up with your doctor Your urologist will call you tomorrow. Understanding of the discharge instructions verbalized by patient and family. Discharge instructions reviewed with and understanding was verbalized by spouse. (Electronically signed by David Govea MD 04/24/2016 18:09)
--- NOTE | 2016-04-24 18:10 | ED MAR SUMMARY ---
..... Medication Administration Record [facility] [address] [place], [place] [id number] Patient: MIKAYLA PEPPER Visit ID: [id number] 75y, M Weight: 68.0 kg Height/Length: 72 in BMI: 20.3 ALLERGIES: No Known Drug Allergy
--- NOTE | 2016-04-24 18:10 | ED DISCHARGE INSTRUCTIONS ---
Patient: MIKAYLA PEPPER General Instructions [facility] VisitID: [id number] [place] [address] 75y, M Registration Date/Time: 04/24/2016 Bladder FB due to cut kenny. Metastatic prostate cancer. New 14 F kenny placement. INSTRUCTIONS Warnings: Further evaluation is necessary. GENERAL WARNINGS: Return or contact your physician immediately if your condition worsens or changes unexpectedly, if not improving as expected, or if other problems arise. Your Current Medications: CONTINUE TAKING THE FOLLOWING MEDICATIONS: Atorvastatin Calcium Oral. Cipro Oral : UTI. Lupron Depot Intramuscular. NexIUM Oral. Follow-up: Follow up with your doctor Your urologist will call you tomorrow. Understanding of the discharge instructions verbalized by patient and family. Discharge instructions reviewed with and understanding was verbalized by spouse. (Electronically signed by David Govea MD 04/24/2016 18:09)
--- NOTE | 2016-04-24 18:10 | ED MED RECONCILIATION SUMMARY ---
Patient: MIKAYLA PEPPER Medication Reconciliation Report [facility] VisitID: [id number] [address] [place] [address] 75y, M Registration Date/Time: 04/24/2016 Weight: 68.0 kg Height/Length: 72 in. BMI: 20.3 ALLERGIES: No Known Drug Allergy The patient's Home Medications are listed below: CONTINUE TAKING THE FOLLOWING MEDICATIONS: Atorvastatin Calcium Oral Cipro Oral, UTI Lupron Depot Intramuscular NexIUM Oral The source(s) of the original Home Medication information: Not obtained. The following Medications were given to the patient in the Emergency Department: None. The following Medications were prescribed to the patient: None.
== END 2016-04-24 11:40 | disposition home or self-care (01) ==
LOC: ED SRH 09:37
PROC: 0T9B70Z Drainage of Bladder with Drainage Device, Via Natural or Artificial Opening (ICD-10-PCS; principal; 2016-04-24)
DX: T83.098A Other mechanical complication of other urinary catheter, initial encounter (principal); Y73.1 Therapeutic (nonsurgical) and rehabilitative gastroenterology and urology devices associated with adverse incidents; C61 Malignant neoplasm of prostate; Z87.891 Personal history of nicotine dependence

== ENCOUNTER 2016-06-12 16:15 | Inpatient (IN) | payer OTHER ==
[~2016-06-12] VITALS: Ht 182.9 cm; Wt 68.6 kg
--- NOTE | 2016-06-12 18:02 | ED ORDER SUMMARY ---
..... Patient: MIKAYLA PEPPER OrderSheet [facility] VisitID: [id number] [place] [address] 75y, M Registration Date/Time: 06/12/2016 ORDER SHEET Weight: 68.0 kg (estimated) Allergies: No Known Drug Allergy GENERAL ORDERS: Blood Culture (No) (N/A) Urgent (16:06/12/2016 Robert VINCENT) (Ack 16:34 Abigail) (17:02 LSullivan R.N.) Chest 1V Urgent (16:06/12/2016 Robert VINCENT) (Ack 16:34 Abigail) (17:33 KWilliams R.N.) Formation Fracturing Operator (Continuous) (:06/12/2016 Robert VINCENT) (Ack 16:32 Abigail) (17:48 LSullivan R.N.) UA-Culture if indicated Urgent (16:06/12/2016 Robert VINCENT) (Ack 16:32 Abigail) (16:49 LSullivan R.N.) PT with INR Urgent (16:06/12/2016 Robert VINCENT) (Ack 16:31 Abigail) (16:49 LSullivan R.N.) PTT Urgent (16:06/12/2016 Robert VINCENT) (Ack 16:31 Abigail) (16:49 LSullivan R.N.) Cardiac Panel Stat (16:06/12/2016 Robert VINCENT) (Ack 16:32 Abigail) (16:49 LSullivan R.N.) BNP Urgent (16:06/12/2016 Robert VINCENT) (Ack 16:32 Abigail) (16:49 LSullivan R.N.) Amylase Urgent (16:06/12/2016 Robert VINCENT) (Ack 16:30 Abigail) (16:49 LSullivan R.N.) Lipase Urgent (16:06/12/2016 Robert VINCENT) (Ack 16:30 Abigail) (16:50 LSullivan R.N.) TSH Urgent (16:27 06/12/2016 Robert VINCENT) (Ack 16:30 Abigail) (16:50 LSullivan R.N.) Pulse oximeter (16:27 06/12/2016 Robert VINCENT) (Ack 16:32 Abigail) (16:50 LSullivan R.N.) EKG - ER Stat (16:27 06/12/2016 Robert VINCENT) (Ack 16:30 Abigail) (16:57 RKaruga) Giles Catheter (16:52 06/12/2016 LSullivan R.N. per protocol) (16:52 LSullivan R.N.) with temperature probe Lactate, Serum Urgent (17:48 06/12/2016 Robert VINCENT) (18:10 KWilliams R.N.) Type & Screen Urgent (18:00 06/12/2016 Robert VINECNT) (18:10 KWilliams R.N.) - (Decrease IV rate to 200 per hour.) (18:13 06/12/2016 Robert VINCENT) (18:18 LSullivan R.N.) MEDICATION ORDERS: Acetaminophen MO 1000 mg (NOW) (17:47 06/12/2016 LSullivan R.N. verbal order read back to Robert VINCENT) (17:48 LSullivan R.N.) IV FLUIDS: IV NS : initial bolus 1000 mL (1000 mL/hr), then 500 mL/hr for 2h (NOW); Routine (16:26 06/12/2016 Robert VINCENT) (Ack 16:47 RCollier R.N.) (16:51 LSullivan R.N.) Levaquin IV 750 mg/150 mL (NOW) (17:02 06/12/2016 Robert VINCENT) (Ack 17:19 RCollier R.N.) (17:28 RCollier R.N.) ORDER SHEET NOTES: [Electronically signed by Josefina Coats R.N. (22:06/12/2016)] [Electronically signed by David Govea MD (09:30 06/13/2016)] [Electronically locked/signed by Josefina Coats R.N. (22:06/12/2016)]
--- NOTE | 2016-06-12 18:02 | ED CLINICAL REPORT ---
Clinical Report - Physicians/Mid Levels [facility] [address] [place] [address] 06/12/2016 16:16 Patient: MIKAYLA PEPPER Time Seen: 16:24 Jun 12 2016. Arrived- By ambulance. Historian- patient and EMS personnel. Evaluation limited limited by degree of illness. History limited by age. CPT: Critical care < 74 min plus (#[id number]) and 30-74 min plus (#[id number]). EKG interpretation (#[id number]). HISTORY OF PRESENT ILLNESS Chief Complaint: WEAKNESS. ( Code Sepsis called by RN due to fever, tachycardia and low BP.). Severity described as moderate at its maximum. When seen in the E.D., severity described as moderate. Modifying factors- relieved by nothing. Not worsened by anything. Described as feeling weak all over. This started today and is still present. No nausea or vomiting. Similar symptoms previously: None. Recent medical care: Not recently seen/assessed. REVIEW OF SYSTEMS No headache, double vision, fainting episodes or head injury. No chest pain or pain, palpitations or black stools or stools. No bloody stools or stools, sore throat or throat or cough. No difficulty breathing, diarrhea, skin rash, enlarged lymph nodes or epistaxis. No cough, difficulty breathing, abdominal pain, constipation or diarrhea. No nausea, vomiting, hematuria, diabetic symptoms or easy bruising. The patient has had fever, chills, weakness,, abdominal pain and difficulty with urination. He has had fatigue and weakness. He has had difficulty walking. He has had difficulty walking (chronically). All systems otherwise negative, except as recorded above. PAST HISTORY ( Prostate CA : Has not started chemo yet. Anemia. Pulmonary Embolism. Hypercholesterolemia. Prostate Cancer. 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 Additional Surgeries: Biopsy of prostate. Right knee. Shoulder Surgery. Tonsillectomy. Vasectomy.). SOCIAL HISTORY No alcohol use. ADDITIONAL NOTES The nursing notes have been reviewed. PHYSICAL EXAM Vital Signs: 06/12/2016 16:21 BP: 133/68. HR: 115. RR: 18. O2 saturation: 94%. Temp: 103 F. Appearance: Alert. Lethargic. Patient in mild distress. Eyes: Pupils equal, round and reactive to light. No nystagmus. Extraocular movements normal. ENT: Normal ENT inspection. Dry mucous membranes present. Pharynx normal. Neck: Normal inspection. Neck supple. CVS: Tachycardia. Heart sounds normal. Pulses normal. Respiratory: No respiratory distress. Breath sounds normal. Abdomen: Soft and nontender. Back: Normal inspection. Skin: Skin warm. Normal skin color. (decub. sacral and back.). Extremities: Bilateral moderate 2+ pitting edema of the lower extremities. Extremities exhibit normal ROM. No calf tenderness. No lower extremity edema. Neuro: Alert. The patient is disoriented. Mood/affect normal. Speech normal. Cranial nerves normal (as tested). No cerebellar findings. No motor deficit. No sensory deficit. LABS, X-RAYS, AND EKG EKG: Normal sinus rhythm. Rate: 113. Tachycardia. Normal P waves. Incomplete RBBB. Decreased QRS voltage. Non-specific ST segment / T wave abnormalities. Prior EKG unavailable. The study has been interpreted contemporaneously. The study has been independently viewed by me. The EKG appears to be a good tracing. Chest X-ray: Normal Chest X-Ray. Laboratory Tests: UA-Culture if indicated: (KEATON: 06/12/2016 16:41) ( MsgRcvd 06/12/2016 17:09) Final results Test Result Flag Units (Reference) URINE COLOR YELLOW URINE APPEARANCE SL CLOUDY URINE GLUCOSE NEGATIVE (NEGATIVE) URINE BILIRUBIN NEGATIVE (NEGATIVE) URINE KETONE NEGATIVE (NEGATIVE) URINE SPECIFIC GRAVITY 1.010 (1.010-1.030) URINE PH 6.0 (5.0-8.0) URINE PROTEIN 1+ (NEGATIVE) URINE UROBILINOGEN 0.2 EU/dL (0.2-1.0) URINE NITRITE NEGATIVE (NEGATIVE) URINE BLOOD 3+ (NEGATIVE) URINE LEUK ESTERASE POSITIVE (NEGATIVE) URINE RBC NONE SEEN rbc/hpf (0-1) URINE WBC TNTC wbc/hpf (0-1) URINE EPITHELIAL CELLS NONE SEEN EPI/hpf (0-5) URINE BACTERIA MANY (4+) (NONE SEEN) URINE COMMENT CULTURE INDICATED URINE CULTURES ARE SET-UP BASED ON THE FOLLOWING CRITERIA:POSITIVE NITRITEPOSITIVE LEUKOCYTE ESTERASEGREATER THAN 10 WHITE BLOOD CELLSMODERATE (2+) OR GREATER BACTERIA CBC w Diff: (KEATON: 06/12/2016 16:27) ( [facility] 06/12/2016 17:18) Final results Test Result Flag Units (Reference) WHITE BLOOD COUNT 7.3 K/uL (4.5-11.5) RED BLOOD COUNT 2.90 L M/uL (4.50-5.90) HEMOGLOBIN 8.8 L gm/dL (13.5-17.5) HEMATOCRIT 26.2 L % (41.0-53.0) MEAN CELL VOLUME 91 fL (80-100) MEAN CORPUSCULAR HGB 30 pg (26-34) MEAN CORPUSCULAR HGB CONC 34 g/dL (31-37) RED CELL DISTRIBUTION WIDTH 14.7 % (11.6-14.8) PLATELET COUNT 119 L K/uL (150-400) POLY % 79 H % (50-75) BAND % 17 H % (0-8) LYMPH 2 L % (25-40) MONO 2 L % (3-14) EOSINOPHIL % 0 % (0-4) BASOPHIL % 0 % (0-2) METAMYELOCYTE % 0 % (0-1) MYELOCYTE 0 % (0-1) OTHER CELL TYPE 0 RBC MORPHOLOGY NORMOCHROMIC~~NORMOCYTIC PT with INR: (KEATON: 06/12/2016 16:27) ( [facility] 06/12/2016 16:53) Final results Test Result Flag Units (Reference) INR 1.2 (0.8-1.2) Low Intensity Therapy: INR 1.5-2.0 PT range 18.5-23.1Mod.Intensity Therapy: INR 2.0-3.0 PT range 23.1-31.5High Intensity Therapy: INR 2.5-3.5 PT range 27.4-35.5High Intensity Therapy 2: INR 3.0-4.0 PT range 31.5-39.3 APTT 51 H SECONDS (24-34) BNP: (KEATON: 06/12/2016 16:27) ( [facility] 06/12/2016 17:08) Final results Test Result Flag Units (Reference) B-TYPE NATRIURETIC PEPTIDE 886 H pg/ml (5-100) Lipase: (KEATON: 06/12/2016 16:27) ( CagRcvd 06/12/2016 17:29) Final results Test Result Flag Units (Reference) LIPASE 74 U/L (73-393) AMYLASE 21 L U/L (25-115) THYROID STIMULATING HORMONE 0.875 uIU/mL (0.30-3.74) CHEM 13 PANEL: (KEATON: 06/12/2016 16:27) ( CagRcvd 06/12/2016 17:20) Final results Test Result Flag Units (Reference) GLUCOSE 105 mg/dL (70-110) BUN 55 H mg/dL (7-18) CREATININE 3.9 H mg/dL (0.6-1.3) Estimated GFR 16.10 mL/min Estimated GFR- 19.51 mL/min Note: Persistent reduction over 3 months in eGFR<60 mL/min/1.73 m2 defines CKD. Patients with eGFR values>=60 mL/min/1.73 m2 may also have CKD if evidence ofpersistent proteinuria. Additional information may be foundat [email or web address].org. SODIUM 139 mmol/L (136-145) POTASSIUM 5.5 H mmol/L (3.5-5.1) CHLORIDE 106 mmol/L (98-107) CARBON DIOXIDE 19 L mmol/L (21-32) CALCIUM 7.5 L mg/dL (8.5-10.1) TOTAL PROTEIN 6.6 g/dL (6.4-8.2) ALBUMIN 2.1 L g/dL (3.3-5.0) BILIRUBIN, TOTAL 0.6 mg/dL (0.0-1.0) ALKALINE PHOSPHATASE 96 U/L (46-116) AST (SGOT) 62 H U/L (15-37) ALT (SGPT) 20 U/L (12-78) MAGNESIUM 1.8 mg/dL (1.8-2.4) CPK 1461 H U/L (24-260) CK-MB 6.7 H ng/mL (0.5-3.2) %CKMB 0.5 % (0.0-4.0) TROPONIN I 0.05 ng/mL (0.00-1.5) TROPONIN REFERENCE RANGE:<0.1 NEGATIVE0.1-1.5 INDETERMINANT>1.5 POSITIVE . PROGRESS AND PROCEDURES Course of Care: Pt with BP that could not be obtained by EMS. Pulse of 130 and temp of 103. Code sepsis called. IV NS 1 liter then 500 an hour followed by 200 per hour due to elevated BNP. BC times 2 Levaquin 750 mg IV. Critical care performed (95 minutes). Time is exclusive of separately billable procedures. Time includes: direct patient care, patient reassessment, coordination of patient care, interpretation of data (laboratory data, pulse oximetry and chest xrays), review of patient's medical records and documentation of patient care. Procedures included in critical care time: peripheral IV placement and phlebotomy. Procedures excluded from critical care time: electrocardiography. Discussed case with on-call health care provider, (Megan: Dr Pagan will bean picker at 1900.). Reviewed test results. Agreed upon treatment plan. Refers case to other health care provider. Patient/family counseled. Old medical records ordered. Disposition orders written. Disposition: Admitted to the Critical Care Unit. CLINICAL IMPRESSION Severe dehydration UTI Sepsis Anemia Weak Early decubitus , sacrum and back. Metastatic prostate cancer. Anemia Renal insufficency Elevated CK. (Electronically signed by David Govea MD 06/13/2016 9:30)
--- NOTE | 2016-06-12 18:02 | ED CLINICAL REPORT ---
Clinical Report - Physicians/Mid Levels [facility] [address] [place] [address] 06/12/2016 16:16 Patient: MIKAYLA PEPPER Time Seen: 16:24 Jun 12 2016. Arrived- By ambulance. Historian- patient and EMS personnel. Evaluation limited limited by degree of illness. History limited by age. CPT: Critical care < 74 min plus (#[id number]) and 30-74 min plus (#[id number]). EKG interpretation (#[id number]). HISTORY OF PRESENT ILLNESS Chief Complaint: WEAKNESS. ( Code Sepsis called by RN due to fever, tachycardia and low BP.). Severity described as moderate at its maximum. When seen in the E.D., severity described as moderate. Modifying factors- relieved by nothing. Not worsened by anything. Described as feeling weak all over. This started today and is still present. No nausea or vomiting. Similar symptoms previously: None. Recent medical care: Not recently seen/assessed. REVIEW OF SYSTEMS No headache, double vision, fainting episodes or head injury. No chest pain or pain, palpitations or black stools or stools. No bloody stools or stools, sore throat or throat or cough. No difficulty breathing, diarrhea, skin rash, enlarged lymph nodes or epistaxis. No cough, difficulty breathing, abdominal pain, constipation or diarrhea. No nausea, vomiting, hematuria, diabetic symptoms or easy bruising. The patient has had fever, chills, weakness,, abdominal pain and difficulty with urination. He has had fatigue and weakness. He has had difficulty walking. He has had difficulty walking (chronically). All systems otherwise negative, except as recorded above. PAST HISTORY ( Prostate CA : Has not started chemo yet. Anemia. Pulmonary Embolism. Hypercholesterolemia. Prostate Cancer. 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 Additional Surgeries: Biopsy of prostate. Right knee. Shoulder Surgery. Tonsillectomy. Vasectomy.). SOCIAL HISTORY No alcohol use. ADDITIONAL NOTES The nursing notes have been reviewed. PHYSICAL EXAM Vital Signs: 06/12/2016 16:21 BP: 133/68. HR: 115. RR: 18. O2 saturation: 94%. Temp: 103 F. Appearance: Alert. Lethargic. Patient in mild distress. Eyes: Pupils equal, round and reactive to light. No nystagmus. Extraocular movements normal. ENT: Normal ENT inspection. Dry mucous membranes present. Pharynx normal. Neck: Normal inspection. Neck supple. CVS: Tachycardia. Heart sounds normal. Pulses normal. Respiratory: No respiratory distress. Breath sounds normal. Abdomen: Soft and nontender. Back: Normal inspection. Skin: Skin warm. Normal skin color. (decub. sacral and back.). Extremities: Bilateral moderate 2+ pitting edema of the lower extremities. Extremities exhibit normal ROM. No calf tenderness. No lower extremity edema. Neuro: Alert. The patient is disoriented. Mood/affect normal. Speech normal. Cranial nerves normal (as tested). No cerebellar findings. No motor deficit. No sensory deficit. LABS, X-RAYS, AND EKG EKG: Normal sinus rhythm. Rate: 113. Tachycardia. Normal P waves. Incomplete RBBB. Decreased QRS voltage. Non-specific ST segment / T wave abnormalities. Prior EKG unavailable. The study has been interpreted contemporaneously. The study has been independently viewed by me. The EKG appears to be a good tracing. Chest X-ray: Normal Chest X-Ray. Laboratory Tests: UA-Culture if indicated: (KEATON: 06/12/2016 16:41) ( MsgRcvd 06/12/2016 17:09) Final results Test Result Flag Units (Reference) URINE COLOR YELLOW URINE APPEARANCE SL CLOUDY URINE GLUCOSE NEGATIVE (NEGATIVE) URINE BILIRUBIN NEGATIVE (NEGATIVE) URINE KETONE NEGATIVE (NEGATIVE) URINE SPECIFIC GRAVITY 1.010 (1.010-1.030) URINE PH 6.0 (5.0-8.0) URINE PROTEIN 1+ (NEGATIVE) URINE UROBILINOGEN 0.2 EU/dL (0.2-1.0) URINE NITRITE NEGATIVE (NEGATIVE) URINE BLOOD 3+ (NEGATIVE) URINE LEUK ESTERASE POSITIVE (NEGATIVE) URINE RBC NONE SEEN rbc/hpf (0-1) URINE WBC TNTC wbc/hpf (0-1) URINE EPITHELIAL CELLS NONE SEEN EPI/hpf (0-5) URINE BACTERIA MANY (4+) (NONE SEEN) URINE COMMENT CULTURE INDICATED URINE CULTURES ARE SET-UP BASED ON THE FOLLOWING CRITERIA:POSITIVE NITRITEPOSITIVE LEUKOCYTE ESTERASEGREATER THAN 10 WHITE BLOOD CELLSMODERATE (2+) OR GREATER BACTERIA CBC w Diff: (KEATON: 06/12/2016 16:27) ( [facility] 06/12/2016 17:18) Final results Test Result Flag Units (Reference) WHITE BLOOD COUNT 7.3 K/uL (4.5-11.5) RED BLOOD COUNT 2.90 L M/uL (4.50-5.90) HEMOGLOBIN 8.8 L gm/dL (13.5-17.5) HEMATOCRIT 26.2 L % (41.0-53.0) MEAN CELL VOLUME 91 fL (80-100) MEAN CORPUSCULAR HGB 30 pg (26-34) MEAN CORPUSCULAR HGB CONC 34 g/dL (31-37) RED CELL DISTRIBUTION WIDTH 14.7 % (11.6-14.8) PLATELET COUNT 119 L K/uL (150-400) POLY % 79 H % (50-75) BAND % 17 H % (0-8) LYMPH 2 L % (25-40) MONO 2 L % (3-14) EOSINOPHIL % 0 % (0-4) BASOPHIL % 0 % (0-2) METAMYELOCYTE % 0 % (0-1) MYELOCYTE 0 % (0-1) OTHER CELL TYPE 0 RBC MORPHOLOGY NORMOCHROMIC~~NORMOCYTIC PT with INR: (KEATON: 06/12/2016 16:27) ( [facility] 06/12/2016 16:53) Final results Test Result Flag Units (Reference) INR 1.2 (0.8-1.2) Low Intensity Therapy: INR 1.5-2.0 PT range 18.5-23.1Mod.Intensity Therapy: INR 2.0-3.0 PT range 23.1-31.5High Intensity Therapy: INR 2.5-3.5 PT range 27.4-35.5High Intensity Therapy 2: INR 3.0-4.0 PT range 31.5-39.3 APTT 51 H SECONDS (24-34) BNP: (KEATON: 06/12/2016 16:27) ( [facility] 06/12/2016 17:08) Final results Test Result Flag Units (Reference) B-TYPE NATRIURETIC PEPTIDE 886 H pg/ml (5-100) Lipase: (KEATON: 06/12/2016 16:27) ( NegRcvd 06/12/2016 17:29) Final results Test Result Flag Units (Reference) LIPASE 74 U/L (73-393) AMYLASE 21 L U/L (25-115) THYROID STIMULATING HORMONE 0.875 uIU/mL (0.30-3.74) CHEM 13 PANEL: (KEATON: 06/12/2016 16:27) ( NegRcvd 06/12/2016 17:20) Final results Test Result Flag Units (Reference) GLUCOSE 105 mg/dL (70-110) BUN 55 H mg/dL (7-18) CREATININE 3.9 H mg/dL (0.6-1.3) Estimated GFR 16.10 mL/min Estimated GFR- 19.51 mL/min Note: Persistent reduction over 3 months in eGFR<60 mL/min/1.73 m2 defines CKD. Patients with eGFR values>=60 mL/min/1.73 m2 may also have CKD if evidence ofpersistent proteinuria. Additional information may be foundat [email or web address].org. SODIUM 139 mmol/L (136-145) POTASSIUM 5.5 H mmol/L (3.5-5.1) CHLORIDE 106 mmol/L (98-107) CARBON DIOXIDE 19 L mmol/L (21-32) CALCIUM 7.5 L mg/dL (8.5-10.1) TOTAL PROTEIN 6.6 g/dL (6.4-8.2) ALBUMIN 2.1 L g/dL (3.3-5.0) BILIRUBIN, TOTAL 0.6 mg/dL (0.0-1.0) ALKALINE PHOSPHATASE 96 U/L (46-116) AST (SGOT) 62 H U/L (15-37) ALT (SGPT) 20 U/L (12-78) MAGNESIUM 1.8 mg/dL (1.8-2.4) CPK 1461 H U/L (24-260) CK-MB 6.7 H ng/mL (0.5-3.2) %CKMB 0.5 % (0.0-4.0) TROPONIN I 0.05 ng/mL (0.00-1.5) TROPONIN REFERENCE RANGE:<0.1 NEGATIVE0.1-1.5 INDETERMINANT>1.5 POSITIVE . PROGRESS AND PROCEDURES Course of Care: Pt with BP that could not be obtained by EMS. Pulse of 130 and temp of 103. Code sepsis called. IV NS 1 liter then 500 an hour followed by 200 per hour due to elevated BNP. BC times 2 Levaquin 750 mg IV. Critical care performed (95 minutes). Time is exclusive of separately billable procedures. Time includes: direct patient care, patient reassessment, coordination of patient care, interpretation of data (laboratory data, pulse oximetry and chest xrays), review of patient's medical records and documentation of patient care. Procedures included in critical care time: peripheral IV placement and phlebotomy. Procedures excluded from critical care time: electrocardiography. Discussed case with on-call health care provider, (Megan: Dr Pagan will picking tech at 1900.). Reviewed test results. Agreed upon treatment plan. Refers case to other health care provider. Patient/family counseled. Old medical records ordered. Disposition orders written. Disposition: Admitted to the Critical Care Unit. CLINICAL IMPRESSION Severe dehydration UTI Sepsis Anemia Weak Early decubitus , sacrum and back. Metastatic prostate cancer. Anemia Renal insufficency Elevated CK. (Electronically signed by David Govea MD 06/13/2016 9:30)
--- NOTE | 2016-06-12 18:02 | ED NURSING NOTES ---
Clinical Report - Nurses [facility] [address] [place] [address] 06/12/2016 16:16 Patient: MIKAYLA PEPPER TRIAGE Triage time 16:21. Acuity: LEVEL 2. Chief Complaint: FEVER, CHILLS and "NOT FEELING WELL" and ("Code sepsis" called overhead). Alert. SEPSIS SCREEN: Sepsis Screen: positive. Infection suspected/documented. Temperature greater than 38.3 degrees C (101 degrees F) and heart rate greater than 90. Physician notified and protocol initiated. GRETA COMA SCORE: Greta Coma Scale: 15- eyes open spontaneously (4); best verbal response- oriented x 4 (5); best motor response- obeys commands (6). --16:31 Josefina Coats R.N. 16:21 06/12/16. BP: 133/68. HR: 115. RR: 18. O2 saturation: 94%. Temp: 103 F (oral). --16:31 Josefina Coats R.N. Weight: 68 kg estimated. Height/Length: 70 inches Estimated. BMI: 21.5. --16:30 Josefina Coats R.N. Medications Lupron Depot Intramuscular. --16:28 Josefina Coats R.N. Cipro Oral. Xtandi Oral. Zofran Oral. --16:29 Josefina Coats R.N. Allergies No Known Drug Allergy. --16:28 Josefina Coats R.N. History Arrived by EMS. Historian: patient. This started just prior to arrival and today. SOCIAL HX: Smoker- current status unknown. Alcohol use; consumes one beer occasionally. --16:31 Josefina Coats R.N. PROBLEMS: Possible mets to bone. Kenny Catheter. UTI - Urinary Tract Infection. Anemia. Pulmonary Embolism. Hypercholesterolemia. Prostate Cancer. 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 --16:26 Josefina Coats R.N. ADDITIONAL SURGERIES: Biopsy of prostate. Right knee. Shoulder Surgery. Tonsillectomy. Vasectomy. --16:26 Josefina Coats R.N. Interventions ID band on patient. To room. --16:31 Josefina Coats R.N. PHYSICAL ASSESSMENT 16:32 06/12/16. GENERAL / NEURO / PSYCH: Alert. Oriented X 4. --16:32 Josefina Coats R.N. 16:34 06/12/16. GENERAL / NEURO / PSYCH: Altered mental status. (flat affect). He has had weakness. RESPIRATORY: Respirations not labored. --16:34 Josefina Coats R.N. NURSING PROGRESS NOTES 16:32 06/12/16. Patient identifiers checked. Call light placed in reach. Bed placed in lowest position. Patient ready for evaluation- chart flagged. --16:32 Josefina Coats R.N. 16:41 06/12/2016 Site #1 started via IV in the left antecubital space with an 18g angiocath, with aseptic technique and good blood return; one attempt. Blood drawn: rainbow set and cultures x1. Labeled in the presence of the patient and sent to the lab (by Candice Dunlap). --16:51 Josefina Coats R.N. 16:41 06/12/2016 Started bag #1 1000 mL IV Fluids IV NS (Saline); at 1000 mL/hr via site #1 via IV pump. --16:51 Josefina Coats R.N. Temperature sensing kenny catheter for close monitoring of sepsis. Reason for indwelling catheter: critical need to monitor intake and output. During procedure hand hygiene observed and sterile equipment and aseptic technique used. Return of 300 mL yellow-colored cloudy urine; odor is foul-smelling; attached to bedside drainage bag positioned below the bladder and urimeter and secured with stabilization device. He tolerated procedure well. Patient ID band checked for patient name and birthdate: patient confirmed. Catheterized urine collected with return of yellow-colored cloudy urine; odor is foul-smelling; sample sent to lab for urinalysis and culture. Specimen labeled in the presence of the patient. --16:53 Janae Rosario R.N. 16:51 06/12/16. Temp: 39.3 C. --16:53 Janae Rosario R.N. EKG time: (15:53). EKG was performed by a tech and shown to the ED physician. --16:57 Prachi Jasso 17:28 06/12/2016 Started 750 mg of Levaquin (Levofloxacin) IVPB in bag #1 150 mL; at 100 mL/hr over 90 minute(s) via site #1 via IV pump. Allergies verified and confirmed 5 rights. IV patency established. IV site checked: no pain, redness, or swelling. IV flushed thoroughly pre- and post-medication administration. --17:28 Candice Chamorro R.N. 17:36 06/12/16. BP: 130/56. HR: 109. RR: 21. O2 saturation: 100%. Temp: 39.8 C. --17:38 Josefina Coats R.N. 17:42 06/12/2016 IV Fluids IV NS Discontinued: bag #1 completed. Total amount infused: 1000 mL. IV patency established. IV site checked: no pain, redness, or swelling. IV flushed thoroughly. --17:44 Candice Chamorro R.N. 17:44 06/12/2016 Started bag #2 1000 mL IV Fluids IV NS (Saline); at 500 mL/hr via site #1 via IV pump. Allergies verified and confirmed 5 rights. IV patency established. IV site checked: no pain, redness, or swelling. IV flushed thoroughly pre- and post-medication administration. --17:44 Candice Chamorro R.N. 17:48 06/12/2016 Acetaminophen FL 1000 mg given. Allergies verified and confirmed 5 rights. --17:48 Josefina Coats R.N. 17:55 06/12/16. Temp: 39.7 C. Additional comments: temp sensing kenny. --17:55 Janae Rosario R.N. 18:16 06/12/2016 IV Fluids IV NS Continued: at the rate of 200 mL/hr. 600 mL remaining bag #2. IV patency established. IV site checked: no pain, redness, or swelling. IV flushed thoroughly. --18:16 Josefina Coats R.N. ( H&P form given to son to help fill out.). --18:32 MathewIvis Telemetry strip posted to chart. --19:23 PatelfreddyVicki, ER Tech1 19:00 06/12/2016 Levaquin IVPB Discontinued: completed. Total amount infused: 150 mL. IV patency established. IV site checked: no pain, redness, or swelling. IV flushed thoroughly. --19:42 Josefina Coats R.N. DISPOSITION / DISCHARGE 19:41 06/12/16. Report was given to a nurse via a phone call. Report included patient's care, treatment, medications, reviewed medication reconcilliation, and condition (including any recent changes or anticipated changes). All questions were answered. Report was acknowledged and care was transferred. --19:41 Josefina Coats R.N. 19:42 06/12/16. ( Bed not ready). --19:42 Josefina Coats R.N. 19:45 06/12/16. BP: 90/42. HR: 102. RR: 18. O2 saturation: 99%. Temp: 38.3 C. Pain level now: 05/13. --19:46 Josefina Coats R.N. 20:50 06/12/16. ( AC floor called, bed is now ready.). --20:50 Josefina Coats R.N. 20:51 06/12/16. ( Pt taken to CCU.). --20:51 Josefina Coats R.N. Locked/Released at 06/12/2016 22:01 by Josefina Coats R.N.
--- NOTE | 2016-06-12 18:02 | ED ORDER SUMMARY ---
..... Patient: MIKAYLA PEPPER OrderSheet [facility] VisitID: [id number] [place] [address] 75y, M Registration Date/Time: 06/12/2016 ORDER SHEET Weight: 68.0 kg (estimated) Allergies: No Known Drug Allergy GENERAL ORDERS: Blood Culture (No) (N/A) Urgent (16:06/12/2016 Robert VINCENT) (Ack 16:34 Abigail) (17:02 LSullivan R.N.) Chest 1V Urgent (16:06/12/2016 Robert VINCENT) (Ack 16:34 Abigail) (17:33 KWilliams R.N.) Tumbler Tender (Continuous) (:06/12/2016 Robert VINCENT) (Ack 16:32 Abigail) (17:48 LSullivan R.N.) UA-Culture if indicated Urgent (16:06/12/2016 Robert VINCENT) (Ack 16:32 Abigail) (16:49 LSullivan R.N.) PT with INR Urgent (16:06/12/2016 Robert VINCENT) (Ack 16:31 Abigail) (16:49 LSullivan R.N.) PTT Urgent (16:06/12/2016 Robert VINCENT) (Ack 16:31 Abigail) (16:49 LSullivan R.N.) Cardiac Panel Stat (16:06/12/2016 Robert VINCENT) (Ack 16:32 Abigail) (16:49 LSullivan R.N.) BNP Urgent (16:06/12/2016 Robert VINCENT) (Ack 16:32 Abigail) (16:49 LSullivan R.N.) Amylase Urgent (16:06/12/2016 Robert VINCENT) (Ack 16:30 Abigail) (16:49 LSullivan R.N.) Lipase Urgent (16:06/12/2016 Robert VINCENT) (Ack 16:30 Abigail) (16:50 LSullivan R.N.) TSH Urgent (16:27 06/12/2016 Robert VINCENT) (Ack 16:30 Abigail) (16:50 LSullivan R.N.) Pulse oximeter (16:27 06/12/2016 Robert VINCENT) (Ack 16:32 Abigail) (16:50 LSullivan R.N.) EKG - ER Stat (16:27 06/12/2016 Robert VINCENT) (Ack 16:30 Abigail) (16:57 RKaruga) Giles Catheter (16:52 06/12/2016 LSullivan R.N. per protocol) (16:52 LSullivan R.N.) with temperature probe Lactate, Serum Urgent (17:48 06/12/2016 Robert VINCENT) (18:10 KWilliams R.N.) Type & Screen Urgent (18:00 06/12/2016 Robert VINCENT) (18:10 KWilliams R.N.) - (Decrease IV rate to 200 per hour.) (18:13 06/12/2016 Robert VINCENT) (18:18 LSullivan R.N.) MEDICATION ORDERS: Acetaminophen MS 1000 mg (NOW) (17:47 06/12/2016 LSullivan R.N. verbal order read back to Robert VINCENT) (17:48 LSullivan R.N.) IV FLUIDS: IV NS : initial bolus 1000 mL (1000 mL/hr), then 500 mL/hr for 2h (NOW); Routine (16:26 06/12/2016 Robert VINCENT) (Ack 16:47 RCollier R.N.) (16:51 LSullivan R.N.) Levaquin IV 750 mg/150 mL (NOW) (17:02 06/12/2016 Robert VINCENT) (Ack 17:19 RCollier R.N.) (17:28 RCollier R.N.) ORDER SHEET NOTES: [Electronically signed by Josefina Coats R.N. (22:06/12/2016)] [Electronically signed by David Govea MD (09:30 06/13/2016)] [Electronically locked/signed by Josefina Coats R.N. (22:06/12/2016)]
--- NOTE | 2016-06-12 18:36 | DIAGNOSTIC IMAGING REPORT ---
PROCEDURE: XR CHEST 1 VIEW INDICATION: FEVER TECHNIQUE: Single view chest. 1732 hours COMPARISON: 09/07/2013 FINDINGS: Mild cardiomegaly. Normal aortic contour and central vessels. Mild bibasilar opacities, less severe compared to the previous study. No large pleural effusion. No pneumothorax. Dystrophic calcification overlying the right glenohumeral joint. IMPRESSION: 1. Bibasilar densities suggestive of atelectasis. Underlying pneumonia is difficult to exclude without a lateral film.
--- NOTE | 2016-06-12 19:28 | Progress Note ---
Subjective General 75 y.o male with prostate CA and bone mets post radiation therapy who presents with urosepsis. Elevated uric acid, elevated bun/Cr and K. Also elevated CPK with possible rhabdo (CPK 1461), anemia (hct 26.2) and BNP 886. Code is full- given 1 dose levaquin in ER. a/p: urolsepsis, rhabdo, renal failure, hyperkalemia, anemia. plan: monitor labs, IVF, IV abx change to ceftriaxone with renal failure
[2016-06-12 21:15] VITALS: BP 95/50
[2016-06-12 22:00] VITALS: BP 93/50
[2016-06-12 23:02] VITALS: BP 78/56
[2016-06-12 23:04] VITALS: BP 82/40
--- NOTE | 2016-06-12 23:56 | HISTORY AND PHYSICAL ---
ADMITTED: 06/12/2016 CHIEF COMPLAINT: 1. Weakness, collapse at side of bed 2. Metastatic prostate cancer 3. Urosepsis HISTORY OF PRESENT ILLNESS: The patient is a 75-year-old male who has had a 2- to 3-day history of increasing weakness, decreased eating, decreased drinking. He has had similar symptoms in the past when he has had urinary tract infections. This evening, he was unable to get out of bed to transport himself to the bathroom and he collapsed at the side of his bed. His family called an ambulance to bring him in for further evaluation in the emergency department. In the emergency department, he was found to have multiple abnormalities on his labs, renal failure, elevated CPK, elevated BNP, and urosepsis. He has been treated with IV antibiotics and is admitted for urosepsis at this time. MEDICAL/SURGICAL HISTORY: Past medical history: Prostate cancer with metastatic bone issues. He has had shoulder problems with rotator cuff tears, and urinary tract infections. Past surgical history: He has had bilateral rotator cuff surgeries, otherwise none. MEDICATIONS: He takes: 1. Depot Lupron ?dose for his prostate cancer. 2. Xtandi, uncertain of its dosage. 3. Zofran 4 mg p.o. q.6 hours p.r.n. nausea. 4. He has also had hydrocodone 5/325 one p.o. q.4 hours p.r.n. pain, though he takes this rarely. ALLERGIES: 1. NO KNOWN DRUG ALLERGIES. SOCIAL HISTORY: He is . He rarely has occasional beer. He does not smoke, he quit in the 1970s. He denies any drug use. He has been for 55 years. FAMILY HISTORY: His mom at age 88 of old age, and his father had a heart attack in his 60s. REVIEW OF SYSTEMS: He has had left shoulder pain that is chronic. He has had weakness. He has had increased needs for urination, having to pee frequently, he says. He has a history of some anemia and some GI bleeding. He states that last colonoscopy was nearly 10 years ago. On the rest of his review of systems, he has had decreased appetite and decreased drinking. He denies dizziness. He denies chest pain or shortness breath. Denies other issues. He does have a temperature and it was 103.8 earlier this evening. HIS CODE STATUS IS FULL CODE. PHYSICAL EXAMINATION: GENERAL: He is an alert male who appears comfortable, lying in the ED. He alert and appropriate with his questioning. VITAL SIGNS: Blood pressure is 133/68, heart rate of 115, respirations 18, saturating 94% with a temperature of 103 oral. HEENT: Extraocular movements intact. Pupils equal, round, and reactive to light. Oropharynx is clear with moist mucous membranes. His TMs are normal bilaterally. NECK: Supple without lymphadenopathy. LUNGS: Clear to auscultation bilaterally. HEART: Regular rate and rhythm. No murmur. ABDOMEN: Soft. It is nontender, nondistended. EXTREMITIES: No edema. There is a small superficial abrasion on his left granados. GENITOURINARY/RECTAL: Deferred at the patient's request. NEUROLOGIC: His cranial nerves II-XII intact. Strength and sensation are grossly nonfocal. LAB/IMAGING: EKG shows sinus tachycardia with incomplete right bundle branch block and nonspecific ST and T-wave changes. His chest x-ray shows bibasilar densities suggestive of atelectasis. Labs: CBC shows a white count of 7.3, hematocrit 26.2, and platelets of 119. There are 79% polys, 17% bands. CMP: Glucose of 105, BUN of 55, creatinine of 3.9, sodium 139, potassium 5.5, chloride of 106, carbon dioxide 19, magnesium 1.8, calcium 7.5, total protein 6.6, albumin 2.1. Total bilirubin 0.6, alkaline phosphatase 96, AST of 62, ALT of 20. CPK 1461, CK-MB 6.7 with a percent 0.5, and a troponin I less than 0.05. PT /INR of 1.2 and a PTT of 51. Lipase of 74, amylase 21. TSH 0.875. BNP 886, Lactic acid of 3.0. Urinalysis shows specific gravity of 1.010, positive leukocyte esterase, negative nitrite. There is 4+ bacteria and too numerous to count white blood cells. IMPRESSION: 1. This is a 75-year-old male who presents to the emergency department with weakness and signs and symptoms of urosepsis. 2. He has a known history of prostate cancer and obstructive urinary tract with likely obstructive renal failure. 3. He has multiple electrolyte abnormalities and elevated CPK with possible rhabdomyolysis. He also has elevated potassium and his BUN and creatinine are significant with a creatinine of 3.9. PLAN: He has been given 1 dose of Levaquin in the emergency department and intravenous fluids. With his renal failure, we will switch him over to ceftriaxone, awaiting for further cultures on his urine, and the Levaquin should be working in his system for a couple days. With his elevated creatinine, we will continue to monitor his labs including his anemia and his low hematocrit of 26. We will recheck on his renal function this evening as well as tomorrow morning, as well as his hematocrit. He would be agreeable to transfer if he needed dialysis. He would also be agreeable to transfusion if his hematocrit necessitated it.
[2016-06-13] VITALS (27 sets, daily range): BP systolic 86–112; BP diastolic 40–53
--- NOTE | 2016-06-13 09:31 | ED MAR SUMMARY ---
..... Medication Administration Record [facility] [address] [place] [place] [address] Patient: MIKAYLA PEPPER Visit ID: [id number] 75y, M Weight: 68.0 kg Height/Length: 70 in BMI: 21.5 ALLERGIES: No Known Drug Allergy Start 16:41 06/12/2016 Josefina Coats R.N., Stop 17:42 06/12/2016 Candice Chamorro R.N. Medication Administered: IV NS (SALINE), Dose: IV Fluids, Rate: 1000 mL/hr, Dispensed: 1000 mL bag, Site: #1 left AC. Medication Ordered: IV NS : initial bolus 1000 mL (1000 mL/hr), then 500 mL/hr for 2h (NOW); Routine. Start 17:28 06/12/2016 Candice Chamorro R.N., Stop 19:00 06/12/2016 Josefina Coats R.N. Medication Administered: LEVAQUIN [IVPB] (LEVOFLOXACIN), Dose: 750 mg IVPB over 90 minute(s), Rate: 100 mL/hr, Dispensed: 150 mL bag, Site: #1 left AC. Medication Ordered: Levaquin IV 750 mg/150 mL (NOW). Start 17:44 06/12/2016 Candice Chamorro R.N., Continued Upon Disposition 18:16 06/12/2016 Josefina Coats R.N. Medication Administered: IV NS (SALINE), Dose: IV Fluids, Rate: 500 mL/hr, Dispensed: 1000 mL bag, Site: #1 left AC. Medication Ordered: IV NS : initial bolus 1000 mL (1000 mL/hr), then 500 mL/hr for 2h (NOW); Routine. Given 17:48 06/12/2016 Josefina Coats R.N. Medication Administered: ACETAMINOPHEN [WY], Dose: 1000 mg WY. Medication Ordered: Acetaminophen W[place] 1000 mg (NOW).
--- NOTE | 2016-06-13 09:31 | ED DISCHARGE INSTRUCTIONS ---
Patient: MIKAYLA PEPPER General Instructions [facility] VisitID: [id number] [place] [address] 75y, M Registration Date/Time: 06/12/2016 Severe dehydration UTI Sepsis Anemia Weak Early decubitus , sacrum and back. Metastatic prostate cancer. Anemia Renal insufficency Elevated CK. ADDITIONAL INFORMATION Dehydration (Adult) Dehydration occurs when your body loses too much fluid. This may be the result of vomiting a lot or from diarrhea,sweating a lot, or a high fever. It may also happen if you dont drink enough fluid when youre sick. Misuse of diuretics (water pills) can also be a cause. Symptoms include thirst and feeling dizzy, weak, fatigued, or very drowsy. The diet described below is usually enough to treat most cases. Sometimes you may needmedicine. Home Care Follow these guidelines for home care: Drink at least 12 8-ounce glasses of fluid every day to overcome the dehydration. Fluid may include water; orange juice; lemonade; apple, grape, and cranberry juice; clear fruit drinks; electrolyte replacement and sports drinks; and teas and coffee without caffeine. If you have been diagnosed with a kidney disease, ask your doctor how much and what types of fluids you should drink to prevent dehydration. If you have kidney disease, drinking too much fluid can cause it build up in the your body and be dangerous to your health. If you have fever, muscle aching, or headache from a viral syndrome, you may useacetaminophen or ibuprofen, unless another medicine was prescribed for this.If you have chronic liver or kidney disease or ever had a stomach ulcer or GI bleeding, talk with your doctor before using these medicines. Don't take aspirin if you are younger than 18 and are ill with a fever.Aspirin raises the chance forsevere liver injury. Follow-up care Follow up with your health care provider if you don't get better in the next 24 to 48 hours. When to seek medical care Get prompt medical attention if any of theseoccur: Continued vomiting (cant keep liquids down) Frequent diarrhea (more than 5 times a day); blood (red or black color) or mucus in diarrhea Blood in vomit or stool Swollen abdomen or increasing abdominal pain Weakness, dizziness, or fainting Unusually drowsy or confused Reduced urine output or extreme thirst Fever of 100.4 F (38 C) oral or higher that does not get better with fever medication You have been given the following additional information: Dehydration (Adult) (Electronically signed by David Govea MD 06/13/2016 9:30)
--- NOTE | 2016-06-13 09:31 | ED MED RECONCILIATION SUMMARY ---
Patient: MIKAYLA PEPPER Medication Reconciliation Report [facility] VisitID: [id number] [address] [place] [address] 75y, M Registration Date/Time: 06/12/2016 Weight: 68.0 kg Height/Length: 70 in. BMI: 21.5 ALLERGIES: No Known Drug Allergy The patient's Home Medications are listed below: THE FOLLOWING MEDICATIONS NEED TO BE RECONCILED: Cipro Oral Lupron Depot Intramuscular Xtandi Oral Zofran Oral The source(s) of the original Home Medication information: Not obtained. The following Medications were given to the patient in the Emergency Department: IV NS IV Fluids bolus 0, then 1000 mL/hr, administered: 06/12/2016 4:41:00 PM Levaquin [IVPB] IVPB bolus 0, then 750 mg 100 mL/hr, administered: 06/12/2016 5:28:00 PM IV NS IV Fluids bolus 0, then 500 mL/hr, administered: 06/12/2016 5:44:00 PM Acetaminophen [ND] ND 1000 mg, administered: 06/12/2016 5:48:00 PM The following Medications were prescribed to the patient: None.
--- NOTE | 2016-06-13 09:31 | ED MAR SUMMARY ---
..... Medication Administration Record [facility] [address] [address] Patient: MIKAYLA PEPPER Visit ID: [id number] 75y, M Weight: 68.0 kg Height/Length: 70 in BMI: 21.5 ALLERGIES: No Known Drug Allergy Start 16:41 06/12/2016 Josefina Coats R.N., Stop 17:42 06/12/2016 Candice Chamorro R.N. Medication Administered: IV NS (SALINE), Dose: IV Fluids, Rate: 1000 mL/hr, Dispensed: 1000 mL bag, Site: #1 left AC. Medication Ordered: IV NS : initial bolus 1000 mL (1000 mL/hr), then 500 mL/hr for 2h (NOW); Routine. Start 17:28 06/12/2016 Candice Chamorro R.N., Stop 19:00 06/12/2016 Josefina Coats R.N. Medication Administered: LEVAQUIN [IVPB] (LEVOFLOXACIN), Dose: 750 mg IVPB over 90 minute(s), Rate: 100 mL/hr, Dispensed: 150 mL bag, Site: #1 left AC. Medication Ordered: Levaquin IV 750 mg/150 mL (NOW). Start 17:44 06/12/2016 Candice Chamorro R.N., Continued Upon Disposition 18:16 06/12/2016 Josefina Coats R.N. Medication Administered: IV NS (SALINE), Dose: IV Fluids, Rate: 500 mL/hr, Dispensed: 1000 mL bag, Site: #1 left AC. Medication Ordered: IV NS : initial bolus 1000 mL (1000 mL/hr), then 500 mL/hr for 2h (NOW); Routine. Given 17:48 06/12/2016 Josefina Coats R.N. Medication Administered: ACETAMINOPHEN [TN], Dose: 1000 mg TN. Medication Ordered: Acetaminophen TN 1000 mg (NOW).
--- NOTE | 2016-06-13 09:31 | ED MED RECONCILIATION SUMMARY ---
Patient: MIKAYLA PEPPER Medication Reconciliation Report [facility] VisitID: [id number] [address] [place] [address] 75y, M Registration Date/Time: 06/12/2016 Weight: 68.0 kg Height/Length: 70 in. BMI: 21.5 ALLERGIES: No Known Drug Allergy The patient's Home Medications are listed below: THE FOLLOWING MEDICATIONS NEED TO BE RECONCILED: Cipro Oral Lupron Depot Intramuscular Xtandi Oral Zofran Oral The source(s) of the original Home Medication information: Not obtained. The following Medications were given to the patient in the Emergency Department: IV NS IV Fluids bolus 0, then 1000 mL/hr, administered: 06/12/2016 4:41:00 PM Levaquin [IVPB] IVPB bolus 0, then 750 mg 100 mL/hr, administered: 06/12/2016 5:28:00 PM IV NS IV Fluids bolus 0, then 500 mL/hr, administered: 06/12/2016 5:44:00 PM Acetaminophen [CT] CT 1000 mg, administered: 06/12/2016 5:48:00 PM The following Medications were prescribed to the patient: None.
--- NOTE | 2016-06-13 18:44 | Progress Note ---
Subjective General Pt seen and examined. Patient has not really had any appetite during this time and it has not improved from the days prior. Constitutional Weakness, Malaise, Other (anorexia ). Denies: Fever, Chills, Sweats. Eyes Denies: Pain, Vision Change, Conjunctival Inflammation, Eyelid Inflammation, Redness, Other. ENT Denies: Ear Pain, Ear Discharge, Nose Pain, Nasal Discharge, Nasal Congestion, Mouth Pain, Mouth Swelling, Throat Pain, Throat Swelling, Other. Respiratory Denies: Cough, Dry, SOB w/exertion, Wheezing, Hemoptysis, Pleuritic Pain, Sputum , Other. Cardiovascular Denies: Chest Pain, Palpitations, Orthopnea, PND, Edema, Light-headedness, Other. Gastrointestinal Denies: Nausea, Vomiting, Abdominal Pain, Diarrhea, Constipation, Melena, Hematochezia, Other. Musculoskeletal Back Pain, Leg Pain. Skin Denies: Rash, Lesions, Jaundice, Bruising, Other. Neurological Denies: Weakness, Numbness, Incoordination, Change in speech, Confusion, Seizures, Other. Physical Exam Vital Signs / I&Os Vital Signs Date Time Temp Pulse Resp B/P Pulse O2 O2 Flow FiO2 Ox Delivery Rate 06/20 1805 97.9 95 18 124/79 100 Room Air 06/20 1430 97.7 84 18 126/72 100 Room Air 06/20 1139 98.4 81 18 100/53 100 Room Air 0.0 06/20 0948 100 06/20 0857 97.4 94 18 116/73 100 Room Air 0.0 06/20 0253 97.9 81 16 136/75 100 Room Air 0.0 06/19 2258 97.5 88 20 122/64 100 Room Air 0.0 06/19 2040 Room Air I&O 06/19 0800 06/19 1600 06/20 0000 Intake Total 888 560 500 Output Total 1000 1400 2049 Balance -112 -840 -1550 General Appearance Alert, Oriented X3, Mild distress HEENT PERRLA, Moist mucous membranes Lungs Clear to auscultation, Normal air movement Neck No JVD, No masses Cardiovascular No murmurs, gallops, rubs Abdomen Soft, No tenderness, No masses Rectal No masses Extremities No edema, Normal pulses, - poor strength in the upper and lower extremities - +1 above gravity Skin No Rashes Neurological Normal speech, Normal tone, Cranial nerves intact, No lateralizing signs, - poor strength Psych/Mental Status Mood normal Assessment and Plan Problem List 1. UTI (urinary tract infection) Plan - will c.w ceftriaxone - will await urine sensitivities 2. Sepsis associated hypotension Plan - improving however pt remains hypotensive - will c.w iv fluids and continue to monitor - will address possible vasopressive agents as blood pressure dictates 3. Weak Plan - weakness secondary to chemotherapy, spine metastasis, and weakness from sepsis - will provide physical therapy once patient begins to improve 4. Anemia Plan - pt recieved 2 units of PRBCs with adequate results - will continue to trend CBC 5. Prostate cancer metastatic to bone Plan - will continue with chemotherapy tablets - radiation resumes upon discharge
[2016-06-13] MEDS ORDERED: ZOFRAN ODT4 MG PO (18:47)
[2016-06-13] MEDS ORDERED: PHENERGAN EQUIV25 MG PO ×2 (18:49→18:51)
[2016-06-13] MEDS ORDERED: VICODIN EQUIVAL1 TAB PO (18:56)
[2016-06-13] MEDS ORDERED: LEUPROLIDE (18:56)
[2016-06-13] MEDS ORDERED: XTANDI40 MG PO (18:57)
[2016-06-14] VITALS (14 sets, daily range): BP systolic 95–106; BP diastolic 41–56
--- NOTE | 2016-06-14 17:53 | Progress Note ---
Subjective General Patient seen and examined. Patient has no complaints and his appetite has returned. Patient does still have persistent weakness, will need to be evaluated by physical therapy. Constitutional Denies: Fever, Chills, Sweats, Weakness, Malaise, Other. Eyes Denies: Pain, Vision Change, Conjunctival Inflammation, Eyelid Inflammation, Redness, Other. Respiratory Denies: Cough, Dry, SOB w/exertion, Wheezing, Hemoptysis, Pleuritic Pain, Sputum , Other. Cardiovascular Denies: Chest Pain, Palpitations, Orthopnea, PND, Edema, Light-headedness, Other. Gastrointestinal Denies: Nausea, Vomiting, Abdominal Pain, Diarrhea, Constipation, Melena, Hematochezia, Other. Genitourinary Denies: Dysuria, Frequency, Incontinence, Hematuria, Retention, Other. Musculoskeletal Denies: Neck Pain, Shoulder Pain, Arm Pain, Back Pain, Hand Pain, Leg Pain, Foot Pain, Other. Skin Denies: Rash, Lesions, Jaundice, Bruising, Other. Neurological Denies: Weakness, Numbness, Incoordination, Change in speech, Confusion, Seizures, Other. Physical Exam Vital Signs / I&Os Vital Signs Date Time Temp Pulse Resp B/P Pulse O2 O2 Flow FiO2 Ox Delivery Rate 06/15 1437 98.6 80 16 111/68 99 06/15 1103 98.8 76 18 107/58 98 Room Air 0.0 06/15 1015 Room Air 06/15 0701 56 18 156/112 100 Room Air 06/15 0654 98.4 76 20 116/59 99 Room Air 0.0 06/15 0210 98.6 72 20 113/59 97 Room Air 06/14 2227 98.1 68 20 105/52 99 Room Air 06/14 2020 Room Air 06/14 1908 97.7 70 20 103/55 98 Room Air I&O 06/14 0800 06/14 1600 06/15 0000 Intake Total 150 2363 1405 Output Total 1165 755 900 Balance -1015 1608 505 General Appearance Alert, Oriented X3, No acute distress Lungs Clear to auscultation, Normal air movement Neck Supple, No masses, No thyromegaly, No lymphadenopathy Cardiovascular Regular rate and rhythm, Normal S1 and S2 Abdomen Normal bowel sounds, Soft, No tenderness Extremities No clubbing, Normal pulses, No tenderness, Strength = upper ext's, Strength = lower ext's Skin No Breakdown Neurological Normal speech, Normal tone, Reflexes 2+ and equal, Cranial nerves intact Assessment and Plan Problem List 1. Sepsis associated hypotension Plan - Pt was initially found to have an uti which was causing a SIRS reaction - pts pressures normalized and he responded appropriately to the antibiotics - Pt will continue with ceftriaxone - Pt additonally seen to have positive blood cultures with lactobacillus growing from both the urine and blood - found to be sensitive to ceftriaxone - will c/w said antibioitic 2. UTI (urinary tract infection) Plan - resolving - c/w ceftriaxone 3. Weak Plan - secondary to uti and chemotherapy/radiation - pts energy level is improving as is his po intake - will c/w 4. Prostate cancer metastatic to bone Plan - pt recieving out paitent lupron injections - will c/w azulenimatide 5. Anemia Plan - pt has evidence of anemia or chronic disease and iron defiency anemia - will provide patient with iron supplementation once appetite returns - will obtain daily cbcs
[2016-06-15] VITALS (7 sets, daily range): BP systolic 107–156; BP diastolic 58–112
--- NOTE | 2016-06-15 22:07 | Progress Note ---
Subjective General Itching on morphine and so d/c this med as wasn't helping much per pateint. Trial of benadryl and also fentanyl patch
--- NOTE | 2016-06-15 22:07 | Progress Note ---
Subjective General Itching on morphine and so d/c this med as wasn't helping much per pateint. Trial of benadryl and also fentanyl patch
[2016-06-16 02:16] VITALS: BP 122/65
[2016-06-16 06:47] VITALS: BP 126/75
[2016-06-16 10:14] VITALS: BP 91/56
[2016-06-16 14:49] VITALS: BP 132/63
[2016-06-16 18:20] VITALS: BP 134/72
--- NOTE | 2016-06-16 19:37 | Progress Note ---
Subjective General Patient seen and examined. Patient has been improving Constitutional Denies: Fever, Chills, Sweats, Weakness, Malaise, Other. Eyes Denies: Pain, Vision Change, Conjunctival Inflammation, Eyelid Inflammation, Redness, Other. ENT Denies: Ear Pain, Ear Discharge, Nose Pain, Nasal Discharge, Nasal Congestion, Mouth Pain, Mouth Swelling, Throat Pain, Throat Swelling, Other. Respiratory Denies: Cough, Dry, SOB w/exertion, Wheezing, Hemoptysis, Pleuritic Pain, Sputum , Other. Cardiovascular Denies: Chest Pain, Palpitations, Orthopnea, PND, Edema, Light-headedness, Other. Gastrointestinal Denies: Nausea, Vomiting, Abdominal Pain, Diarrhea, Constipation, Melena, Hematochezia, Other. Genitourinary Denies: Dysuria, Frequency, Incontinence, Hematuria, Retention, Other. Musculoskeletal Denies: Neck Pain, Shoulder Pain, Arm Pain, Back Pain, Hand Pain, Leg Pain, Foot Pain, Other. Skin Denies: Rash, Lesions, Jaundice, Bruising, Other. Neurological Denies: Weakness, Numbness, Incoordination, Change in speech, Confusion, Seizures, Other. Physical Exam Vital Signs / I&Os Vital Signs Date Time Temp Pulse Resp B/P Pulse O2 O2 Flow FiO2 Ox Delivery Rate 06/17 1432 97.7 80 12 113/57 99 Room Air 06/17 1114 97.5 75 14 130/66 99 Room Air 06/17 0659 98.4 71 13 139/67 100 Room Air 0.0 06/17 0224 98.2 85 16 118/82 98 Room Air 06/16 2232 98.1 82 17 133/77 99 Room Air 06/16 1820 97.9 84 16 134/72 100 0.0 I&O 06/16 0800 06/16 1600 06/17 0000 Intake Total 1709 1350 400 Output Total 2990 1200 800 Balance -1281 150 -400 General Appearance Alert, Oriented X3, No acute distress HEENT Atraumatic, EOMI, Moist mucous membranes Lungs Clear to auscultation, Normal air movement Neck No JVD, No masses, No thyromegaly, No lymphadenopathy, 2+ carotid pulse wo bruit Cardiovascular Regular rate and rhythm, Normal S1 and S2, No murmurs, gallops, rubs Abdomen Soft, No tenderness, No guarding, No rebound Extremities No clubbing, No edema, Normal pulses, Strength = upper ext's, Strength = lower ext's Skin No Breakdown, No Significant Lesions Neurological Normal speech, Normal tone, Sensation intact, Cranial nerves intact , No lateralizing signs LAB Results Laboratory Tests 06/17 0525 Chemistry Plasma Sodium (136 - 145 mmol/L) 138 Plasma Potassium (3.5 - 5.1 mmol/L) 4.9 Plasma Chloride (98 - 107 mmol/L) 107 CO2 (Enzymatic) (21 - 32 mmol/L) 19 BUN (7 - 18 mg/dL) 16 Creatinine (0.6 - 1.3 mg/dL) 1.1 Est GFR ( Amer) (mL/min) >60 Est GFR (Non-Af Amer) (mL/min) >60 Glucose (70 - 110 mg/dL) 100 Plasma Calcium (8.5 - 10.1 mg/dL) 6.1 Total Bilirubin (0.0 - 1.0 mg/dL) 0.2 AST (15 - 37 U/L) 14 ALT (12 - 78 U/L) 12 Alkaline Phosphatase (46 - 116 U/L) 68 Total Protein (6.4 - 8.2 g/dL) 5.0 Albumin (3.3 - 5.0 g/dL) 1.7 Hematology WBC (4.5 - 11.5 K/uL) 6.0 RBC (4.50 - 5.90 M/uL) 3.70 Hgb (13.5 - 17.5 gm/dL) 11.0 Hct (41.0 - 53.0 %) 33.0 MCV (80 - 100 fL) 89 MCH (26 - 34 pg) 30 RDW (11.6 - 14.8 %) 15.1 Neut % (Auto) (50 - 75 %) 84.8 Lymph % (Auto) (25 - 40 %) 7.8 Douglas % (Auto) (3 - 14 %) 5.2 Eos % (Auto) (0 - 4 %) 2.0 Baso % (Auto) (0 - 2 %) 0.2 Plt Count, EDTA (150 - 400 K/uL) 111 PUBS MCHC (31 - 37 g/dL) 33 Assessment and Plan Problem List 1. Sepsis associated hypotension Plan - resolved - pts wbc has trended down and has zero of the SIRS criteria - will complete antibioitic course - blood and urine show presence of lactobacillus 2. UTI (urinary tract infection) Plan - patient has evidence of lactobacillus in the urine which is senstive to ceftriaxone - will c/w ceftriaxone 1 gm iv daily 3. Weak Plan - secondary to infection and cummulative effect of chemo and radiation - pt seen by physical therapy who recommends that the patient be discharged to out patient rehab - will make arrangements 4. Prostate cancer metastatic to bone Plan - spoke to patients oncologist this morning - currently there are no plans to change chemotherapy treatment - upon discharge will make arrangements to resume radiation
[2016-06-16 22:32] VITALS: BP 133/77
[2016-06-17 02:24] VITALS: BP 118/82
[2016-06-17 06:59] VITALS: BP 139/67
[2016-06-17 11:14] VITALS: BP 130/66
[2016-06-17 14:32] VITALS: BP 113/57
[2016-06-17 18:21] VITALS: BP 109/54
--- NOTE | 2016-06-17 18:28 | Progress Note ---
Subjective General Patient seen and examined. Patient is doing very well and has no complaints. Constitutional Denies: Fever, Chills, Sweats, Weakness, Malaise, Other. Eyes Denies: Pain, Vision Change, Conjunctival Inflammation, Eyelid Inflammation, Redness, Other. ENT Denies: Ear Pain, Ear Discharge, Nose Pain, Nasal Discharge, Nasal Congestion, Mouth Pain, Mouth Swelling, Throat Pain, Throat Swelling, Other. Respiratory Denies: Cough, Dry, SOB w/exertion, Wheezing, Hemoptysis, Pleuritic Pain, Sputum , Other. Cardiovascular Denies: Chest Pain, Palpitations, Orthopnea, PND, Edema, Light-headedness, Other. Gastrointestinal Denies: Nausea, Vomiting, Abdominal Pain, Diarrhea, Constipation, Melena, Hematochezia, Other. Genitourinary Denies: Dysuria, Frequency, Incontinence, Hematuria, Retention, Other. Musculoskeletal Back Pain. Denies: Neck Pain, Shoulder Pain, Arm Pain, Hand Pain, Leg Pain, Foot Pain, Other. Skin Denies: Rash, Lesions, Jaundice, Bruising, Other. Neurological Denies: Weakness, Numbness, Incoordination, Change in speech, Confusion, Seizures, Other. Physical Exam Vital Signs / I&Os Vital Signs Date Time Temp Pulse Resp B/P Pulse O2 O2 Flow FiO2 Ox Delivery Rate 06/18 1548 98.2 86 14 111/60 98 Room Air 0.0 06/18 1014 97.9 85 16 104/56 100 Room Air 0.0 06/18 0942 Room Air 06/18 0715 98.4 88 11 129/66 99 Room Air 06/18 0234 98.2 84 12 130/69 99 Room Air 06/17 2238 98.4 86 15 133/73 100 Room Air 06/17 2014 Room Air 06/17 1821 98.6 90 13 109/54 98 Room Air I&O 06/17 0800 06/17 1600 06/18 0000 Intake Total 2570 200 1279 Output Total 2574 924 0444 Balance 970 -700 -921 General Appearance Alert, Oriented X3, No acute distress Lungs Clear to auscultation, Normal air movement Neck No JVD, No masses, No thyromegaly Cardiovascular Regular rate and rhythm, Normal S1 and S2, No murmurs, gallops, rubs Abdomen Soft, No tenderness, No rebound, No masses, No hepatosplenomegaly Extremities No edema, No tenderness, Strength = upper ext's, Strength = lower ext's Skin No Breakdown, No Significant Lesions Neurological Normal speech, Normal tone, Sensation intact, Reflexes 2+ and equal , Cranial nerves intact, Strength 5/5 x4 ext's Psych/Mental Status Mental status normal, Mood normal, Confused LAB Results Laboratory Tests 06/18 06/18 0420 0420 Chemistry Plasma Sodium (136 - 145 mmol/L) 137 Plasma Potassium (3.5 - 5.1 mmol/L) 5.2 Plasma Chloride (98 - 107 mmol/L) 108 CO2 (Enzymatic) (21 - 32 mmol/L) 18 BUN (7 - 18 mg/dL) 14 Creatinine (0.6 - 1.3 mg/dL) 1.1 Est GFR ( Amer) (mL/min) >60 Est GFR (Non-Af Amer) (mL/min) >60 Glucose (70 - 110 mg/dL) 91 Plasma Calcium (8.5 - 10.1 mg/dL) 6.5 Total Bilirubin (0.0 - 1.0 mg/dL) 0.2 AST (15 - 37 U/L) 14 ALT (12 - 78 U/L) 11 Alkaline Phosphatase (46 - 116 U/L) 70 Creatine Kinase (24 - 260 U/L) 46 Total Protein (6.4 - 8.2 g/dL) 5.7 Albumin (3.3 - 5.0 g/dL) 1.7 Hematology WBC (4.5 - 11.5 K/uL) 7.0 RBC (4.50 - 5.90 M/uL) 3.77 Hgb (13.5 - 17.5 gm/dL) 11.1 Hct (41.0 - 53.0 %) 33.5 MCV (80 - 100 fL) 89 MCH (26 - 34 pg) 29 RDW (11.6 - 14.8 %) 15.2 Neut % (Auto) (50 - 75 %) 84.9 Lymph % (Auto) (25 - 40 %) 8.4 Ballard % (Auto) (3 - 14 %) 4.7 Eos % (Auto) (0 - 4 %) 1.8 Baso % (Auto) (0 - 2 %) 0.2 Plt Count, EDTA (150 - 400 K/uL) 133 PUBS MCHC (31 - 37 g/dL) 33 Assessment and Plan Problem List 1. UTI (urinary tract infection) Plan - will c/w ceftriaxone given sensitivities of lactobacillus - will obtain blood work every other day given improvement of overall symptoms 2. Sepsis associated hypotension Plan - resolved - pts blood pressure has normalized 3. Weak Plan - secondary to radiation and chemotherapy - will continue to provide physical therapy - will need to be dc'd to rehab center 4. Anemia Plan - resolved - will obtain bloods every other day 5. Prostate cancer metastatic to bone Plan - will continue with chemotherapy regimen - will monitor for improvement - radiation to resume on discharge
[2016-06-17 22:38] VITALS: BP 133/73
[2016-06-18 02:34] VITALS: BP 130/69
[2016-06-18 07:15] VITALS: BP 129/66
[2016-06-18 10:14] VITALS: BP 104/56
[2016-06-18 15:48] VITALS: BP 111/60
--- NOTE | 2016-06-18 18:35 | Progress Note ---
Subjective General Patient seen and examined Constitutional Weakness. Denies: Fever, Chills, Sweats, Malaise, Other. Eyes Denies: Pain, Vision Change, Conjunctival Inflammation, Eyelid Inflammation, Redness, Other. Cardiovascular Denies: Chest Pain, Palpitations, Orthopnea, PND, Edema, Light-headedness, Other. Gastrointestinal Denies: Nausea, Vomiting, Abdominal Pain, Diarrhea, Constipation, Melena, Hematochezia, Other. Musculoskeletal Denies: Neck Pain, Shoulder Pain, Arm Pain, Back Pain, Hand Pain, Leg Pain, Foot Pain, Other. Skin Denies: Rash, Lesions, Jaundice, Bruising, Other. Neurological Denies: Weakness, Numbness, Incoordination, Change in speech, Confusion, Seizures, Other. Physical Exam Vital Signs / I&Os Vital Signs Date Time Temp Pulse Resp B/P Pulse O2 O2 Flow FiO2 Ox Delivery Rate 06/20 1805 97.9 95 18 124/79 100 Room Air 06/20 1430 97.7 84 18 126/72 100 Room Air 06/20 1139 98.4 81 18 100/53 100 Room Air 0.0 06/20 0948 100 06/20 0857 97.4 94 18 116/73 100 Room Air 0.0 06/20 0253 97.9 81 16 136/75 100 Room Air 0.0 06/19 2258 97.5 88 20 122/64 100 Room Air 0.0 06/19 2040 Room Air I&O 06/19 0800 06/19 1600 06/20 0000 Intake Total 888 560 500 Output Total 1000 1400 2049 Balance -112 -840 -1550 General Appearance Alert, Oriented X3, No acute distress HEENT PERRLA, EOMI Cardiovascular Normal S1 and S2, No murmurs, gallops, rubs Abdomen Soft, No guarding, No masses, No hepatosplenomegaly Extremities Normal pulses, No tenderness, - lower extremity weakness Skin No Rashes, No Breakdown Neurological Normal tone, Cranial nerves intact, No lateralizing signs Psych/Mental Status Mental status normal Assessment and Plan Problem List 1. UTI (urinary tract infection) Plan - resolving, 2 more days of antibiotics - no further fevers noted 2. Anemia Plan -resolved spontaneously - will stop monitoring 3. Weak Plan - pt will require out patient rehab - currently in the process of finding a facility - if patient can not get accepted at a facility will need to strengthen patient enough for home PT and home health aide
[2016-06-18 18:42] VITALS: BP 104/56
[2016-06-18 22:13] VITALS: BP 119/92
[2016-06-19 03:28] VITALS: BP 113/60
[2016-06-19 06:36] VITALS: BP 124/66
[2016-06-19 11:01] VITALS: BP 107/61
[2016-06-19 14:23] VITALS: BP 109/61
[2016-06-19 18:12] VITALS: BP 111/63
[2016-06-19 22:58] VITALS: BP 122/64
[2016-06-20 02:53] VITALS: BP 136/75
[2016-06-20 08:57] VITALS: BP 116/73
[2016-06-20 11:39] VITALS: BP 100/53
[2016-06-20 14:30] VITALS: BP 126/72
--- NOTE | 2016-06-20 17:30 | Progress Note ---
Subjective General Patient seen and examined, patient currently stable Constitutional Weakness. Denies: Fever, Chills, Sweats, Malaise, Other. ENT Denies: Ear Pain, Ear Discharge, Nose Pain, Nasal Discharge, Nasal Congestion, Mouth Pain, Mouth Swelling, Throat Pain, Throat Swelling, Other. Respiratory Denies: Cough, Dry, SOB w/exertion, Wheezing, Hemoptysis, Pleuritic Pain, Sputum , Other. Cardiovascular Denies: Chest Pain, Palpitations, Orthopnea, PND, Edema, Light-headedness, Other. Gastrointestinal Denies: Nausea, Vomiting, Abdominal Pain, Diarrhea, Constipation, Melena, Hematochezia, Other. Genitourinary Denies: Dysuria, Frequency, Incontinence, Hematuria, Retention, Other. Musculoskeletal Denies: Neck Pain, Shoulder Pain, Arm Pain, Back Pain, Hand Pain, Leg Pain, Foot Pain, Other. Skin Denies: Rash, Lesions, Jaundice, Bruising, Other. Neurological Denies: Weakness, Numbness, Incoordination, Change in speech, Confusion, Seizures, Other. Physical Exam Vital Signs / I&Os Vital Signs Date Time Temp Pulse Resp B/P Pulse O2 O2 Flow FiO2 Ox Delivery Rate 06/20 1805 97.9 95 18 124/79 100 Room Air 06/20 1430 97.7 84 18 126/72 100 Room Air 06/20 1139 98.4 81 18 100/53 100 Room Air 0.0 06/20 0948 100 06/20 0857 97.4 94 18 116/73 100 Room Air 0.0 06/20 0253 97.9 81 16 136/75 100 Room Air 0.0 06/19 2258 97.5 88 20 122/64 100 Room Air 0.0 06/19 2040 Room Air I&O 06/19 0800 06/19 1600 06/20 0000 Intake Total 888 560 500 Output Total 1000 1400 2049 Balance -112 -840 -1550 General Appearance Alert, Oriented X3, No acute distress HEENT Atraumatic, PERRLA, Moist mucous membranes Lungs Clear to auscultation, Normal air movement Cardiovascular Regular rate and rhythm, Normal S1 and S2 Abdomen Soft, No tenderness Extremities No clubbing, No edema, Normal pulses, Strength = upper ext's, - weakness in the lower extremities Skin No Rashes, No Breakdown, No Significant Lesions Neurological Normal tone, Cranial nerves intact, No lateralizing signs Assessment and Plan Problem List 1. UTI (urinary tract infection) Plan - resolved will dc antibiotics tomorrow - no further blood work necessary 2. Anemia Plan - resolved - no evidence of blood loss and patients hgb came up spontaneously 3. Prostate cancer metastatic to bone Plan - will continue with prostate chemotherapy - will clarify with Dr Yanez to as whether patient shold be on on 160 vs 120 mg of his chemotherapy medication
[2016-06-20 18:05] VITALS: BP 124/79
[2016-06-20 23:16] VITALS: BP 131/67
[2016-06-21 02:44] VITALS: BP 113/58
--- NOTE | 2016-06-21 07:08 | Progress Note ---
Subjective General Note Date: June 21, 2016 Admission Date: June 12, 2016 Hospital Day: 10 PCP: Munir Perez M.D. Status: Inpatient Advanced Directive: FULL CODE Room: 209-A Brief History: The patient is a 75-year-old white male with a significant past medical history of metastatic prostate CA, who presented to [facility] emergency department secondary to weakness and suspected UTI. [facility] ER evaluation was consistent with metastatic prostate CA, UTI brought urosepsis. Secondary to the above, the patient was admitted by Matty Pagan M.D. for further evaluation and treatment. For other history present illness, past medical history, family history, social history, review of systems, and admission physical examination please see the patient's history and physical examination and ER visit note in the patient's medical record. Subjective: The patient states he is doing somewhat better today. Weakness improved. Still difficult transferring. Patient ambulated around the nursing station today. Patient requests: No specific Medications and Allergies Medications Current Medications Sig/Sharon Start time Last Medication Dose Route Stop Time Status Admin Patient Own See Dose 0906/19 0900 AC 06/20 Medication Insts (1) PO 0839 Pantoprazole Sodium 40 MG DAILY@06/17 0600 AC 06/20 Sesquihydrate PO 0618 Al Hydrox/Mg Hydrox/ 15 ML PRN PRN 06/16 1830 AC 06/16 Simethicone PO 1848 Sucralfate 1 GM ACHS 06/16 1130 AC 06/20 PO 205 Fentanyl 12 MCG Q3D@0800 06/16 0800 AC 06/19 TOP 1116 Atropine Sulfate 0.5 MG Q3MIN PRN 06/15 2245 AC IV Lidocaine HCl See Dose Q5MIN PRN 06/15 2245 AC Insts (2) IV Magnesium Hydroxide 10 ML QAM PRN 06/15 224 AC PO Morphine Sulfate 2 MG Q3MIN PRN 06/15 2245 AC IV Nitroglycerin See Dose Q5MIN PRN 06/15 2245 AC Insts (3) SL Diphenhydramine HCl 25 MG Q6H PRN 06/15 2215 AC 06/18 PO 2122 Ibuprofen 600 MG Q6H PRN 06/15 1900 AC 06/16 PO 0700 Clarify Med Order See Dose ASDIRECTED 06/14 1300 AC Insts (4) PO Metoclopramide HCl 5 MG AC 06/14 1215 AC 06/20 PO 1606 Lidocaine 1 PATCH DAILY 06/14 1011 AC 06/20 TOP 0842 Acetaminophen 650 MG Q4H PRN 06/14 0830 AC 06/19 PO 1116 Promethazine HCl 12.5 MG Q6H PRN 06/13 191 AC 06/17 PO 1233 Sodium Chloride 250 ML .[FOR TRANSFUSION] 06/13 143 AC IV Dextrose/Sodium 1,000 ML ASDIRECTED 06/12 233 AC 06/20 Chloride/Electrolyt IV 2155 Ceftriaxone Sodium/ 50 ML DAILY 06/12 2000 AC 06/20 Dextrose IV 0842 Ondansetron HCl 4 MG Q4H PRN 06/12 184 AC 06/17 IV 0232 Dose Instructions: (1)Patient Own Medication: ENZALUTAMIDE 40 MG TOTAL DOSE IS 160MG (2)Lidocaine HCl: 1.5 MG/KG (3)Nitroglycerin: 1 TABLET (4)Clarify Med Order: PT MEDS IN PSB (OMNICELL) Allergies Coded Allergies: NKA (06/13/16) Physical Exam Vital Signs / I&Os Vital Signs Date Time Temp Pulse Resp B/P Pulse O2 O2 Flow FiO2 Ox Delivery Rate 06/21 0334 Room Air 06/21 0244 98.6 87 18 113/58 99 Room Air 0.0 06/20 2316 98.4 83 18 131/67 100 Room Air 0.0 06/20 1805 97.9 95 18 124/79 100 Room Air 06/20 1430 97.7 84 18 126/72 100 Room Air 06/20 1139 98.4 81 18 100/53 100 Room Air 0.0 06/20 0948 100 06/20 0857 97.4 94 18 116/73 100 Room Air 0.0 I&O 06/21 0000 06/20 1600 06/20 0800 Intake Total 141 487 1284 Output Total 1500 1000 1600 Balance -1260 -170 933 General Appearance Alert, Oriented X3, Cooperative, No acute distress Lungs Normal air movement, scattered rhonchi Cardiovascular Regular rate and rhythm, Normal S1 and S2 Abdomen Normal bowel sounds, Soft, No tenderness Extremities No cyanosis, No clubbing, No edema Neurological Cranial nerves intact, No lateralizing signs Psych/Mental Status Mental status normal, mood depressed Assessment and Plan Problem List 1. Prostate cancer metastatic to bone Plan -Continue present therapy -Patient ready for discharge to supervised living situation. -Plan discharge to home with home health and family support -Outpatient follow-up with PCP 2. Anemia Plan -Patient with findings of anemia -Recheck CBC today. 3. Weak Plan -Patient with diffuse weakness associated with metastatic prostate CA -Status improving -Plan discharge to home in a.m. with home health 4. Metabolic acidosis Status Chronic Onset Date Unknown Plan -Patient with findings of low bicarbonate on previous laboratory testing -Recheck chemistry profile. -Consider arterial blood gas 5. UTI (urinary tract infection) Plan -Resolved -Antimicrobials discontinued Current status: Fair, improved Anticipated discharge date: Anticipated discharge when placement available Anticipated discharge placement: shelter facility, adult home Patient care time: Time spent in chart review, patient interview, physical exam, CPOE, and care documentation: 25 minutes Visit to patient today: 1 Complexity of care: Moderate E&M Codes Rounding: Inpt-Moderate/[id number]
[2016-06-21 07:37] VITALS: BP 130/59
[2016-06-21 10:43] VITALS: BP 105/55
[2016-06-21 14:46] VITALS: BP 115/71
[2016-06-21 17:53] VITALS: BP 101/62
[2016-06-21] MEDS ORDERED: XARELTO10 MG PO (17:59)
[2016-06-21 22:37] VITALS: BP 123/74
[2016-06-22 03:33] VITALS: BP 98/59
[2016-06-22 07:23] VITALS: BP 108/55
--- NOTE | 2016-06-22 07:43 | Progress Note ---
Subjective General Note Date: June 22, 2016 Admission Date: June 12, 2016 Hospital Day: 11 PCP: Munir Perez M.D. Status: Inpatient Advanced Directive: FULL CODE Room: 209-A Brief History: The patient is a 75-year-old white male with a significant past medical history of metastatic prostate CA, who presented to [facility] emergency department secondary to weakness and suspected UTI. [facility] ER evaluation was consistent with metastatic prostate CA, UTI brought urosepsis. Secondary to the above, the patient was admitted by Matty Pagan M.D. for further evaluation and treatment. For other history present illness, past medical history, family history, social history, review of systems, and admission physical examination please see the patient's history and physical examination and ER visit note in the patient's medical record. Subjective: Doing well. Status stable. Ready for discharge to long-term facility. Strength slowly improving. Patient requests: None Medications and Allergies Medications Current Medications Sig/Sharon Start time Last Medication Dose Route Stop Time Status Admin Cyanocobalamin 2,000 MCG DAILY 06/21 2014 AC PO Patient Own See Dose 0906/19 0900 AC 06/21 Medication Insts (1) PO 0835 Pantoprazole Sodium 40 MG DAILY@0600 06/17 0600 AC 06/22 Sesquihydrate PO 0525 Al Hydrox/Mg Hydrox/ 15 ML PRN PRN 06/16 1830 AC 06/16 Simethicone PO 1848 Sucralfate 1 GM ACHS 06/16 1130 AC 06/21 PO 2226 Fentanyl 12 MCG Q3D@0800 06/16 0800 AC 06/19 TOP 1116 Atropine Sulfate 0.5 MG Q3MIN PRN 06/15 2245 AC IV Lidocaine HCl See Dose Q5MIN PRN 06/15 2245 AC Insts (2) IV Magnesium Hydroxide 10 ML QAM PRN 06/15 2245 AC PO Morphine Sulfate 2 MG Q3MIN PRN 06/15 2245 AC IV Nitroglycerin See Dose Q5MIN PRN 06/15 2245 AC Insts (3) SL Diphenhydramine HCl 25 MG Q6H PRN 06/15 2215 AC 06/22 PO 0009 Ibuprofen 600 MG Q6H PRN 06/15 1900 AC 06/16 PO 0700 Clarify Med Order See Dose ASDIRECTED 06/14 1300 AC Insts (4) PO Metoclopramide HCl 5 MG AC 06/14 1215 AC 06/21 PO 1541 Lidocaine 1 PATCH DAILY 06/14 1011 06/21 TOP 0835 Acetaminophen 650 MG Q4H PRN 06/14 0830 AC 06/19 PO 1116 Promethazine HCl 12.5 MG Q6H PRN 06/13 1915 AC 06/17 PO 1233 Sodium Chloride 250 ML .[FOR TRANSFUSION] 06/13 1430 AC IV Ondansetron HCl 4 MG Q4H PRN 06/12 1845 06/17 IV 0232 Dose Instructions: (1)Patient Own Medication: ENZALUTAMIDE 40 MG TOTAL DOSE IS 120 MG (2)Lidocaine HCl: 1.5 MG/KG (3)Nitroglycerin: 1 TABLET (4)Clarify Med Order: PT MEDS IN PSB ([facility]list[facility]LL) Allergies Coded Allergies: NKA (06/13/16) Physical Exam Vital Signs / I&Os Vital Signs Date Time Temp Pulse Resp B/P Pulse O2 O2 Flow FiO2 Ox Delivery Rate 06/22 0723 108/55 06/22 0646 98.4 78 18 98 Room Air 0.0 06/22 0333 98.6 75 18 98/59 98 Room Air 06/21 2237 98.8 77 18 123/74 100 Room Air 06/21 2105 Room Air 06/21 1753 97.5 99 18 101/62 98 06/21 1446 98.2 80 18 115/71 100 06/21 1104 100 06/21 1043 98.4 80 18 105/55 98 Room Air 0.0 I&O 06/22 0000 06/21 1600 06/21 0800 Intake Total 460 360 790 Output Total 715 042 0379 Balance -490 -140 -1110 General Appearance Alert, Cooperative, No acute distress Lungs Clear to auscultation, Normal air movement Cardiovascular Regular rate and rhythm, Normal S1 and S2 Abdomen Normal bowel sounds, Soft, No tenderness Extremities No cyanosis, No clubbing Neurological Cranial nerves intact, No lateralizing signs Psych/Mental Status Mental status normal, mood depressed. LAB Results Laboratory Tests 06/21 06/21 1830 1830 Chemistry Plasma Sodium (136 - 145 mmol/L) 135 Plasma Potassium (3.5 - 5.1 mmol/L) 4.6 Plasma Chloride (98 - 107 mmol/L) 105 CO2 (Enzymatic) (21 - 32 mmol/L) 22 BUN (7 - 18 mg/dL) 13 Creatinine (0.6 - 1.3 mg/dL) 1.3 Est GFR ( Amer) (mL/min) >60 Est GFR (Non-Af Amer) (mL/min) 57.20 Glucose (70 - 110 mg/dL) 108 Plasma Calcium (8.5 - 10.1 mg/dL) 6.8 Iron (35 - 150 ug/dL) 69 TIBC (260 - 445 ug/dL) 201 Iron Saturation (15 - 50 %) 34 Total Bilirubin (0.0 - 1.0 mg/dL) 0.3 AST (15 - 37 U/L) 14 ALT (12 - 78 U/L) 11 Alkaline Phosphatase (46 - 116 U/L) 77 Total Protein (6.4 - 8.2 g/dL) 6.2 Albumin (3.3 - 5.0 g/dL) 2.1 Vitamin B12 (211 - 946 pg/mL) 208 Hematology WBC (4.5 - 11.5 K/uL) 4.3 RBC (4.50 - 5.90 M/uL) 3.87 Hgb (13.5 - 17.5 gm/dL) 11.4 Hct (41.0 - 53.0 %) 34.4 MCV (80 - 100 fL) 89 MCH (26 - 34 pg) 30 RDW (11.6 - 14.8 %) 15.1 Neut % (Auto) (50 - 75 %) 79.2 Lymph % (Auto) (25 - 40 %) 11.4 [place]oard % (Auto) (3 - 14 %) 7.5 Eos % (Auto) (0 - 4 %) 1.3 Baso % (Auto) (0 - 2 %) 0.6 Plt Count, EDTA (150 - 400 K/uL) 178 PUBS MCHC (31 - 37 g/dL) 33 Assessment and Plan Problem List 1. Prostate cancer metastatic to bone Plan -Stable -Continue outpatient medical regimen -Follow-up with PCP/oncology as scheduled 2. Metabolic acidosis Status Chronic Onset Date Unknown Plan --resolved 3. Anemia Plan -Mild -H&H on discharge 11.4/34.4 -Outpatient follow-up 4. Weak Plan -Improved -Plan discharge to rehabilitation with physical therapy 5. UTI (urinary tract infection) Plan -Resolved 6. B12 deficiency Status Acute Onset Date Unknown Plan -patient with findings of B12 deficiency -B12 given subcutaneous/orally -B12 2000 g daily. -Outpatient follow-up Current status: Fair, improved Anticipated discharge date: Today Anticipated discharge placement: Home, with home health Patient care time: Time spent in chart review, patient interview, physical exam, CPOE, and care documentation: Greater than 30 minutes Visit to patient today: 2 Complexity of care: Moderate For other recommendations regarding discharge diet, activity, followup, and discharge medications please see the patient's discharge instructions. Greater than 30 min. was spent in the patient's discharge preparation including discharge interview and physical examination, progress note, discharge instructions, and discharge summary E&M Codes Discharge: Inpt >30 min spent/[id number]
[2016-06-22 11:10] VITALS: BP 114/68
[2016-06-22 14:53] VITALS: BP 118/61
[2016-06-22] MEDS ORDERED: LIDODERM5 % TOP (15:15)
[2016-06-22] MEDS ORDERED: PANTOPRAZOLE SO40 MG PO (15:15)
[2016-06-22] MEDS ORDERED: VITAMIN B12500 MCG PO (15:15)
--- NOTE | 2016-06-22 18:21 | Provider's Discharge Care Plan ---
Problem, Goal, Plan Problem List 1. Prostate cancer metastatic to bone Goals: Improve disease control, Prevent disease progress Instructions: Follow up as directed, Take meds as directed 2. B12 deficiency Goals: Improve disease control, Prevent disease progress Instructions: Follow up as directed, Take meds as directed
--- NOTE | 2016-06-27 08:23 | Discharge Summary ---
Discharge Summary Report Admit Date 06/12/16 Discharge Date 06/22/16 Admission Diagnosis 1. UTI 2. Metastatic prostate CA 3. Generalized weakness 4. Renal insufficiency Discharge Diagnosis 1. UTI 2. Metastatic prostate CA 3. Generalized weakness 4. Renal insufficiency 5. Anemia Brief History The patient is a 75-year-old white male with a significant past medical history of metastatic prostate CA, who presented to [facility] emergency department secondary to weakness and suspected UTI. [facility] ER evaluation was consistent with metastatic prostate CA, UTI possible urosepsis. Secondary to the above, the patient was admitted by Matty Pagan M.D. for further evaluation and treatment. For other history present illness, past medical history, family history, social history, review of systems, and admission physical examination please see the patient's history and physical examination and ER visit note in the patient's medical record. Hospital Course The following problems and their management were noted during the patient's hospitalization: 1. UTI The patient presented with findings suggestive of UTI/urosepsis. He was treated with IV followed by oral antimicrobials. Symptoms resolved prior to discharge. He was afebrile with normal white count. Urine grew out lactobacillus only. Patient completed full course of antimicrobials prior to discharge. 2. Metastatic prostate CA Patient with long-standing history of metastatic prostate CA. Status stable during hospitalization. Continue outpatient medical regimen. See discharge instructions. Follow-up with oncology next week. 3. Generalized weakness Status much improved. Patient ready for discharge to long term facility for ongoing rehabilitation. Ambulating well with assistance. 4. Renal insufficiency Much improved. BUN and creatinine 13/1.3 at discharge. 5. Anemia Mild. Findings of B12 deficiency. B12 2000 g by mouth daily. Outpatient follow-up. H&H on discharge was 11.4/34.4 General Appearance Alert, Oriented X3, Cooperative, No acute distress Lungs Clear to auscultation Cardiovascular Regular Rate, Normal S1, Normal S2 Abdomen Normal bowel sounds, Soft, No tenderness Neurological Cranial nerves 3-12 NL, generalized weakness. No focal deficits Psych/Mental Status Mental status NL, Mood depressed Discharge Instructions/Meds For other recommendations regarding discharge diet, activity, follow-up, and discharge medications please see the patient's discharge instructions. Discharge condition: Fair, improved-stable Greater than 30 minutes was spent in the patient's discharge preparation The patient was interviewed and examined on the day of discharge. E&M Codes Discharge: Inpt >30 min spent/[id number]
--- NOTE | 2016-06-27 08:23 | Discharge Summary ---
Discharge Summary Report Admit Date 06/12/16 Discharge Date 06/22/16 Admission Diagnosis 1. UTI 2. Metastatic prostate CA 3. Generalized weakness 4. Renal insufficiency Discharge Diagnosis 1. UTI 2. Metastatic prostate CA 3. Generalized weakness 4. Renal insufficiency 5. Anemia Brief History The patient is a 75-year-old white male with a significant past medical history of metastatic prostate CA, who presented to [facility] emergency department secondary to weakness and suspected UTI. [facility] ER evaluation was consistent with metastatic prostate CA, UTI possible urosepsis. Secondary to the above, the patient was admitted by Matty Pagan M.D. for further evaluation and treatment. For other history present illness, past medical history, family history, social history, review of systems, and admission physical examination please see the patient's history and physical examination and ER visit note in the patient's medical record. Hospital Course The following problems and their management were noted during the patient's hospitalization: 1. UTI The patient presented with findings suggestive of UTI/urosepsis. He was treated with IV followed by oral antimicrobials. Symptoms resolved prior to discharge. He was afebrile with normal white count. Urine grew out lactobacillus only. Patient completed full course of antimicrobials prior to discharge. 2. Metastatic prostate CA Patient with long-standing history of metastatic prostate CA. Status stable during hospitalization. Continue outpatient medical regimen. See discharge instructions. Follow-up with oncology next week. 3. Generalized weakness Status much improved. Patient ready for discharge to intermediate facility for ongoing rehabilitation. Ambulating well with assistance. 4. Renal insufficiency Much improved. BUN and creatinine 13/1.3 at discharge. 5. Anemia Mild. Findings of B12 deficiency. B12 2000 g by mouth daily. Outpatient follow-up. H&H on discharge was 11.4/34.4 General Appearance Alert, Oriented X3, Cooperative, No acute distress Lungs Clear to auscultation Cardiovascular Regular Rate, Normal S1, Normal S2 Abdomen Normal bowel sounds, Soft, No tenderness Neurological Cranial nerves 3-12 NL, generalized weakness. No focal deficits Psych/Mental Status Mental status NL, Mood depressed Discharge Instructions/Meds For other recommendations regarding discharge diet, activity, follow-up, and discharge medications please see the patient's discharge instructions. Discharge condition: Fair, improved-stable Greater than 30 minutes was spent in the patient's discharge preparation The patient was interviewed and examined on the day of discharge. E&M Codes Discharge: Inpt >30 min spent/[id number]
--- NOTE | 2016-07-15 15:25 | Progress Note ---
Late Entry Date/Time Late Entry Date and Time LATE ENTRY Date of visit: Time of visit: Subjective General Pt seen and examined. No complaints at the moment. Constitutional Weakness. Denies: Fever, Chills, Sweats, Malaise, Other. Eyes Denies: Pain, Vision Change, Conjunctival Inflammation, Eyelid Inflammation, Redness, Other. Respiratory Denies: Cough, Dry, SOB w/exertion, Wheezing, Hemoptysis, Pleuritic Pain, Sputum , Other. Cardiovascular Denies: Chest Pain, Palpitations, Orthopnea, PND, Edema, Light-headedness, Other. Gastrointestinal Denies: Nausea, Vomiting, Abdominal Pain, Diarrhea, Constipation, Melena, Hematochezia, Other. Musculoskeletal Denies: Neck Pain, Shoulder Pain, Arm Pain, Back Pain, Hand Pain, Leg Pain, Foot Pain, Other. Skin Denies: Rash, Lesions, Jaundice, Bruising, Other. Physical Exam General Appearance Alert, Oriented X3, No acute distress HEENT Atraumatic, Moist mucous membranes Lungs Clear to auscultation Neck No JVD, No masses, No lymphadenopathy, 2+ carotid pulse wo bruit Cardiovascular Normal S1 and S2, No murmurs, gallops, rubs Abdomen Soft, No tenderness Assessment and Plan Problem List 1. UTI (urinary tract infection) Plan - will c/w ceftriaxone given sensitivities of lactobacillus - will obtain blood work every other day given improvement of overall symptoms 2. Sepsis associated hypotension Plan resolved 3. Weak Plan - secondary to radiation and chemotherapy - will continue to provide physical therapy - will need to be dc'd to rehab center 4. Anemia Plan - resolved - will obtain bloods every other day 5. Prostate cancer metastatic to bone Plan - will continue with chemotherapy regimen - will monitor for improvement - radiation to resume on discharge
== END 2016-06-22 18:55 | disposition home or self-care (01) | DRG 690 ==
LOC: ED SRH 16:15 → TRANS SRH 18:25 → CC SRH 21:00 → ACUTE2 SRH 06-18 23:49
PROVIDERS: ADMIT Emergency Medicine
DX: N39.0 Urinary tract infection, site not specified (principal); C79.51 Secondary malignant neoplasm of bone; M62.82 Rhabdomyolysis; E87.2 Acidosis; B96.89 Other specified bacterial agents as the cause of diseases classified elsewhere; E86.0 Dehydration; R55 Syncope and collapse; D63.0 Anemia in neoplastic disease; D50.9 Iron deficiency anemia, unspecified; N28.9 Disorder of kidney and ureter, unspecified; C61 Malignant neoplasm of prostate

== ENCOUNTER 2016-07-29 10:13 | Emergency (ER) | payer OTHER ==
[~2016-07-29 10:13] MED LIST: LEUPROLIDE; LIDODERM5 % TOP; PANTOPRAZOLE SO40 MG PO; PHENERGAN EQUIV25 MG PO; VICODIN EQUIVAL1 TAB PO; VITAMIN B12500 MCG PO; XARELTO10 MG PO; XTANDI40 MG PO; ZOFRAN ODT4 MG PO
--- NOTE | 2016-07-29 11:27 | DIAGNOSTIC IMAGING REPORT ---
PROCEDURE: XR CHEST 1 VIEW INDICATION: NEAR SYNCOPE TECHNIQUE: Portable AP view 10:55 a.m. COMPARISON: Chest 06/12/1978 09/07/2013 FINDINGS: Lungs are clear. Heart and mediastinum are normal. Thorax is normal. IMPRESSION: 1. Negative chest.
--- NOTE | 2016-07-29 13:21 | DIAGNOSTIC IMAGING REPORT ---
PROCEDURE: CT ABDOMEN/PELVIS W/O CONTRAST INDICATION: HEMATURIA, metastatic prostate cancer, recent Giles catheter insertion. TECHNIQUE: Axial CT images were obtained through the abdomen and pelvis without IV contrast. Coronal and sagittal reformations were created. COMPARISON: Correlation made to CTA thorax 09/06/2013. FINDINGS: Moderate bibasilar atelectatic changes and chronic, large, low density pericardial effusion. Small hiatal hernia. Severe bilateral hydronephrosis and hydroureter. Moderate fat stranding throughout the pararenal spaces bilaterally. Severe hydroureter to the level of the urinary bladder which is also distended and demonstrates a diffusely irregular wall with perivesicular stranding. There are a few punctate foci of air which may be within the wall and a small amount of air within the lumen. A Giles catheter is present, although the balloon was inflated within the proximal aspect of the penile urethra. The prostate gland is normal size. There are extensive inflammatory changes in the lower anterior quadrants of the pelvis and presacral fascial thickening. Punctate calcifications are seen in the liver and spleen consistent with granulomas. The unenhanced appearance of the liver, gallbladder, spleen, adrenal glands is otherwise normal. Pancreas is mildly diminutive. Abdominal aorta demonstrates moderate to heavy calcific atherosclerosis. Inferior vena cava is moderately flattened/diminutive. No bulky retroperitoneal adenopathy. Solid stool in the colon. Normal stomach, small bowel loops, and mesentery. Diverticular disease is present in the sigmoid. Moderate rectal solid stool. Normal pelvic vessels. Innumerable tiny sclerotic lesions throughout the pelvis. The largest lesion is in the left posterior ileum. Multiple small sclerotic lesions are present throughout the visualized vertebral bodies, particularly T10. IMPRESSION: 1. Malpositioned Giles catheter with the balloon inflated in the proximal penile urethra. 2. Severe bilateral obstructive uropathy secondary to bladder outlet obstruction, either from known prostate cancer, treatment complication, or from malpositioned Giles catheter. 3. There is urinary bladder wall irregularity, perivesicular inflammation, and diffuse pelvic inflammatory changes which may be secondary to an infectious cystitis (potentially emphysematous cystitis), obstructive uropathy, and/or treatment change. 4. Diminutive inferior vena cava suggestive of low volume status. 5. Osseous metastases consistent with prostate cancer primary. 6. Stable, large chronic, low-density pericardial effusion. 7. Discussed with Dr. Olmstead in the emergency room. All CT scans at this facility use dose modulation, iterative reconstruction, and/or weight-based dosing when appropriate to reduce radiation dose to as low as reasonably achievable.
--- NOTE | 2016-07-29 14:54 | ED ORDER SUMMARY ---
..... Patient: MIKAYLA PEPPER OrderSheet [facility] VisitID: [id number] [place] [address] 75y, M Registration Date/Time: 07/29/2016 ORDER SHEET Weight: 70.3 kg (stated) Allergies: No Known Drug Allergy GENERAL ORDERS: Chest 1V Urgent (10:07/29/2016 Carlos VINCENT) (Ack 10:36 Johnnie CURTIS Tech1) (11:41 EHassan R.N.) Shoe Lacer (Continuous) (:07/29/2016 Carlos VINCENT) (Ack 10:36 Johnnie Harmon1) (11:40 EHassan R.N.) Blood Culture (No) (N/A) Urgent (:07/29/2016 Carlos VINCENT) (Ack 10:36 Johnnie CURTIS Tech1) (11:41 EHassan R.N.) CBC w Diff Urgent (10:07/29/2016 Carlos VINCENT) (Ack 10:36 Johnnie CURTIS TechLiz) (11:40 EHassan R.N.) CMP Urgent (10:07/29/2016 Carlos VINCENT) (Ack 10:36 Johnnie Harmon1) (11:40 EHassan R.N.) UA-Culture if indicated Urgent (10:07/29/2016 Carlos VINCENT) (Ack 10:36 Johnnie Grover) (12:12 EHassan R.N.) PT with INR Urgent (10:07/29/2016 Carlos VINCENT) (Ack 10:36 Johnnie Grover) (11:40 EHassan R.N.) PTT Urgent (10:07/29/2016 Carlos VINCENT) (Ack 10:36 Johnnie Grover) (11:40 EHassan R.N.) Amylase Urgent (:07/29/2016 Carlos VINCENT) (Ack 10:36 Johnnie CURTIS TechLiz) (11:40 EHassan R.N.) Lipase Urgent (10:07/29/2016 Carlos VINCENT) (Ack 10:36 Johnnie CURTIS Tech1) (11:40 EHassan R.N.) CPK Urgent (10:34 07/29/2016 Carlos VINCENT) (Ack 10:36 Johnnie CURTIS Tech1) (11:40 EHassan R.N.) Troponin-I Urgent (10:34 07/29/2016 Carlos VINCENT) (Ack 10:36 Johnnie CURTIS Tech1) (11:40 EHassan R.N.) Lactate, Serum Urgent (10:34 07/29/2016 Carlos VINCENT) (Ack 10:36 Johnnie ER Tech1) (11:41 EHassan R.N.) PCT (Procalcitonin) Urgent (10:34 07/29/2016 Carlos VINCENT) (Ack 10:36 Johnnie CURTIS Tech1) (11:41 EHassan R.N.) BNP Urgent (10:34 07/29/2016 Carlos VINCENT) (Ack 10:36 Johnnie CURTIS Tech1) (11:41 EHassan R.N.) Pulse oximeter (10:34 07/29/2016 Carlos VINCENT) (Ack 10:36 Johnnie CURTIS Tech1) (11:40 EHassan R.N.) EKG - ER Stat (10:34 07/29/2016 Carlos VINCENT) (10:36 RKaruga) (Ack 10:36 Johnnie CURTIS Tech1) Vitals - Orthostatic (10:34 07/29/2016 Carlos VINCENT) (Ack 10:36 Johnnie CURTIS Tech1) (11:30 RKaruga) CT Abd/Pel wo Cont Urgent (11:32 07/29/2016 Carlos VINCENT) (Ack 11:35 Johnnie CURTIS Tech1) (12:20 EHassan R.N.) Blood Culture (No) (N/A) Urgent (11:33 07/29/2016 Carlos VINCENT) (Ack 11:35 Johnnie CURTIS Tech1) (11:41 EHassan R.N.) - (remove kenny, have patient attempt to void then measure PVR with bladder scanner) (12:54 07/29/2016 Carlos VINCENT) (13:08 EHassan R.N.) Kenny Catheter ([address] - one attempt only) (14:17 07/29/2016 Carlos VINCENT) (14:51 EHassahayley R.N.) MEDICATION ORDERS: IV FLUIDS: IV Saline Lock (10:34 07/29/2016 Carlos VINCENT) (12:20 EHassan R.N.) IV NS : initial bolus 500 mL (1000 mL/hr), then 125 mL/hr for 4h (NOW); Urgent (Please start this after orthostatic VS) (10:51 07/29/2016 Carlos VINCENT) (Cancelled: Other11:32 Carlos VINCENT) IV NS : initial bolus 1000 mL (1000 mL/hr), then 1000 mL/hr for X2 (NOW); Urgent (11:32 07/29/2016 Carlos VINCENT) (11:42 EHassan R.N.) Dilaudid IV 0.5 mg (NOW) (11:34 07/29/2016 Carlos VINCENT) (11:42 EHassan R.N.) Zofran IV 4 mg (NOW) (11:34 07/29/2016 Carlos VINCENT) (11:43 EHassan R.N.) Zosyn IV 3.375 gm/50mL (NOW) (12:41 07/29/2016 Carlos VINCENT) (13:58 LSullivan R.N.) Zofran IV 4 mg (NOW) (13:14 07/29/2016 EHassan R.N. verbal order read back to Carlos VINCENT) (13:27 EHassan R.N.) Dilaudid IV 0.5 mg (may give up to 1.5mg in total ) (13:15 07/29/2016 EHassan R.N. verbal order read back to Carlos VINCENT) (13:27 EHassan R.N.) ORDER SHEET NOTES: [Electronically signed by Douglas Treadwell R.N. (16:44 07/29/2016)] [Electronically signed by Jimmie Olmstead MD (17:22 07/29/2016)] [Electronically locked/signed by Douglas Treadwell R.N. (16:44 07/29/2016)]
--- NOTE | 2016-07-29 14:54 | ED CLINICAL REPORT ---
Clinical Report - Physicians/Mid Levels [facility] [address] [place] [address] 07/29/2016 10:16 Patient: MIKAYLA PEPPER Time Seen: 10:32. Arrived- By private vehicle. Historian- patient and son. HISTORY OF PRESENT ILLNESS The patient has recovered. Chief Complaint: NEAR-SYNCOPE. This occurred today. It was abrupt in onset. Event was witnessed. No loss of consciousness. He collapsed. The patient had preceding symptoms of light-headedness and nausea. No preceding symptoms of chest pain or abdominal pain. At time of event, he had just stood up. Experienced repeated episodes of near syncope. No injuries noted. He currently has weakness. Currently has nausea. No headache currently. (Patient has a history of metastatic prostate cancer. His home health nurse yesterday and changed his Kenny catheter. Approximately 30 minutes later he noted large amounts of blood in the catheter bag which has persisted since. He complains of diffuse abdominal pain which is greatest over his bladder area. Additionally he feels tired and weak.). REVIEW OF SYSTEMS No chills, fever, sweats, calf pain or chest pain. No difficulty breathing, pedal edema, palpitations, black stools or bloody stools. No diarrhea or vomiting. He has had abdominal pain (since yesterday). The pain is described as located in the suprapubic region. He has had constipation. He has had similar symptoms previously. He has had nausea. The patient has had hematuria (since yesterday afternoon - it started about half an hour after his kenny was changed by his home health nurse). All systems otherwise negative, except as recorded above. PAST HISTORY ( PCP (Bhavesh) Urology (Dr Amy Bermeo) Oncology (Stu)). Problems: Dehydration. Possible mets to bone. Kenny Catheter. UTI - Urinary Tract Infection. Anemia. Pulmonary Embolism. Hypercholesterolemia. Prostate Cancer. Additional Surgeries: Biopsy of prostate. Right knee. Shoulder Surgery. Tonsillectomy. Vasectomy. Medications: Hydrocodone-Acetaminophen Oral (Tablet 10-325 mg), as needed. Lupron Depot Intramuscular. Xtandi Oral. Zofran Oral. Allergies: No Known Drug Allergy. SOCIAL HISTORY Former smoker, end date 1974. No alcohol use. Is a local resident. He lives with a family member. Has good social support. FAMILY HISTORY Diabetes in first-degree relative (mother). ADDITIONAL NOTES The nursing notes have been reviewed. PHYSICAL EXAM Vital Signs: 07/29/2016 10:21 BP: 111/55. HR: 100. RR: 16. O2 saturation: 100%. Temp: 99 F. Pain level now: 06/10. Have been reviewed. Appearance: Alert. He appears frail, elderly and older than stated age. Eyes: Pupils equal, round and reactive to light. ENT: Dry mucous membranes present. Neck: Normal inspection. Neck supple. CVS: Tachycardia. Respiratory: No respiratory distress. Breath sounds normal. Abdomen: Soft. Moderate tenderness diffusely and in the suprapubic area. Back: (kyphotic). Skin: Skin warm and dry. Normal skin color. Normal skin turgor. Extremities: Extremities exhibit normal ROM. No calf tenderness. No lower extremity edema. Neuro: Alert. No cerebellar findings. No motor deficit. No sensory deficit. LABS, X-RAYS, AND EKG EKG: Rate: 99. Left anterior fascicular block. Incomplete RBBB. Decreased QRS voltage. Non-specific ST segment / T wave abnormalities. Changes present when compared to prior EKG. (12 June 2016 he was tachycardic at that time otherwise without significant changes). Chest X-ray: No acute disease. The X-rays were interpreted by the radiologist and contemporaneously by me. Abdominal CT: IMPRESSION: 1. Malpositioned Kenny catheter with the balloon inflated in the proximal penile urethra. 2. Severe bilateral obstructive uropathy secondary to bladder outlet obstruction, either from known prostate cancer, treatment complication, or from malpositioned Kenny catheter. 3. There is urinary bladder wall irregularity, perivesicular inflammation, and diffuse pelvic inflammatory changes which may be secondary to an infectious cystitis (potentially emphysematous cystitis), obstructive uropathy, and/or treatment change. 4. Diminutive inferior vena cava suggestive of low volume status. 5. Osseous metastases consistent with prostate cancer primary. 6. Stable, large chronic, low-density pericardial effusion. The study was interpreted contemporaneously by me and discussed with the radiologist. Laboratory Tests: UA-Culture if indicated: (KEATON: 07/29/2016 12:10) ( [facility] 07/29/2016 12:36) Final results Test Result Flag Units (Reference) URINE COLOR BROWN URINE APPEARANCE TURBID URINE GLUCOSE NEGATIVE (NEGATIVE) URINE BILIRUBIN NEGATIVE (NEGATIVE) URINE KETONE NEGATIVE (NEGATIVE) URINE SPECIFIC GRAVITY 1.020 (1.010-1.030) URINE PH 8.0 (5.0-8.0) URINE PROTEIN 3+ (NEGATIVE) URINE UROBILINOGEN 0.2 EU/dL (0.2-1.0) URINE NITRITE POSITIVE (NEGATIVE) URINE BLOOD 3+ (NEGATIVE) URINE LEUK ESTERASE POSITIVE (NEGATIVE) URINE RBC >100 (TNTC) rbc/hpf (0-1) URINE WBC TNTC wbc/hpf (0-1) URINE EPITHELIAL CELLS NONE SEEN EPI/hpf (0-5) URINE BACTERIA MANY (4+) (NONE SEEN) URINE COMMENT CULTURE INDICATED SPECIMEN GROSSLY BLOODY.URINE CULTURES ARE SET-UP BASED ON THE FOLLOWING CRITERIA:POSITIVE NITRITEPOSITIVE LEUKOCYTE ESTERASEGREATER THAN 10 WHITE BLOOD CELLSMODERATE (2+) OR GREATER BACTERIA CBC w Diff: (KEATON: 07/29/2016 10:45) ( [facility] [place] 07/29/2016 11:58) Final results Test Result Flag Units (Reference) WHITE BLOOD COUNT 13.8 H K/uL (4.5-11.5) MANUAL DIFFERENTIAL TO FOLLOW. RED BLOOD COUNT 3.55 L M/uL (4.50-5.90) HEMOGLOBIN 10.9 L gm/dL (13.5-17.5) HEMATOCRIT 32.4 L % (41.0-53.0) MEAN CELL VOLUME 91 fL (80-100) MEAN CORPUSCULAR HGB 31 pg (26-34) MEAN CORPUSCULAR HGB CONC 34 g/dL (31-37) RED CELL DISTRIBUTION WIDTH 16.6 H % (11.6-14.8) PLATELET COUNT 115 L K/uL (150-400) POLY % 56 % (50-75) BAND % 38 H % (0-8) LYMPH 5 L % (25-40) MONO 0 L % (3-14) EOSINOPHIL % 0 % (0-4) BASOPHIL % 0 % (0-2) METAMYELOCYTE % 1 % (0-1) MYELOCYTE 0 % (0-1) OTHER CELL TYPE 0 ANISOCYTOSIS 1+ PT with INR: (KEATON: 07/29/2016 10:45) ( [facility] 07/29/2016 11:09) Final results Test Result Flag Units (Reference) INR 1.0 (0.8-1.2) Low Intensity Therapy: INR 1.5-2.0 PT range 18.5-23.1Mod.Intensity Therapy: INR 2.0-3.0 PT range 23.1-31.5High Intensity Therapy: INR 2.5-3.5 PT range 27.4-35.5High Intensity Therapy 2: INR 3.0-4.0 PT range 31.5-39.3 APTT 37 H SECONDS (24-34) BNP: (KEATON: 07/29/2016 10:45) ( [facility] 07/29/2016 11:22) Final results Test Result Flag Units (Reference) B-TYPE NATRIURETIC PEPTIDE 182 H pg/ml (5-100) Lactate, Serum: (KEATON: 07/29/2016 10:45) ( [facility] 07/29/2016 11:19) Final results Test Result Flag Units (Reference) LACTIC ACID 5.1 H mmol/L (0.4-2.0) CRITICAL RESULTS CALLEDCalled to TERRENCE DOBBS RN 07/29/16 1117Were 2 patient identifiers used? YWas the result read back? Y [id number]: (KEATON: 07/29/2016 10:45) ( [facility] 07/29/2016 12:08) Final results Test Result Flag Units (Reference) PROCALCITONIN 3.7 H ng/mL (0-0.5) PCT Concentration: Interpretation : Risk/option for action PCT <=0.5 ng/mL : Systemic : Low risk forinfection(sepsis): progression to severeis not likely. : systemic infection.Local bacterial : CAUTION-PCT levelsinfection is : below 0.5 ng/mL do notpossible. : exclude an infection,because localizedinfections (withoutsystemic signs) may beassociated with suchlow levels. If PCT ismeasured very earlyafter a bacterialchallenge (usually <6hours), these valuesmay still be low. Inthis case PCT shouldbe re-assessed 6-24hours later. PCT >0.5 and : Systemic infection: Moderate risk for<= 2 ng/mL : (sepsis) is : progression to severepossible, but : systemic infection.other conditions : The patient should beare known to : closely monitoredelevate PCT. : both clinically andby re-assessing PCTwithin 6-24 hours. PCT > 2 ng/mL : Systemic infection: High risk for(sepsis) is likely: progression to severeunless other : systemic infection.causes are known. : PCT >= 10 ng/mL : Important systemic: High likelihood ofinflammatory : severe sepsis orresponse, almost : septic shock.exclusively due to:severe bacterial :sepsis or septic :shock. : CMP: (KEATON: 07/29/2016 10:45) ( MsgRcvd 07/29/2016 11:26) Final results Test Result Flag Units (Reference) GLUCOSE 140 H mg/dL (70-110) BUN 42 H mg/dL (7-18) CREATININE 1.8 H mg/dL (0.6-1.3) Estimated GFR 39.29 mL/min Estimated GFR- 47.62 mL/min Note: Persistent reduction over 3 months in eGFR<60 mL/min/1.73 m2 defines CKD. Patients with eGFR values>=60 mL/min/1.73 m2 may also have CKD if evidence ofpersistent proteinuria. Additional information may be foundat www.kidney.org. SODIUM 139 mmol/L (136-145) POTASSIUM 5.3 H mmol/L (3.5-5.1) CHLORIDE 106 mmol/L (98-107) CARBON DIOXIDE 20 L mmol/L (21-32) CALCIUM 8.3 L mg/dL (8.5-10.1) TOTAL PROTEIN 6.6 g/dL (6.4-8.2) ALBUMIN 2.7 L g/dL (3.3-5.0) BILIRUBIN, TOTAL 0.8 mg/dL (0.0-1.0) ALKALINE PHOSPHATASE 78 U/L (46-116) AST (SGOT) 16 U/L (15-37) ALT (SGPT) 14 U/L (12-78) LIPASE 79 U/L (73-393) AMYLASE 26 U/L (25-115) CPK 20 L U/L (24-260) TROPONIN I <0.05 ng/mL (0.00-1.5) TROPONIN REFERENCE RANGE:<0.1 NEGATIVE0.1-1.5 INDETERMINANT>1.5 POSITIVE . PROGRESS AND PROCEDURES Discussed case with hospitalist, ([facility]). Reviewed test results and need for additional work-up. Agreed upon treatment plan, need for patient follow-up and decision to admit. Health care provider will see patient in hospital. Consult obtained from urology. Dr Amy Beremo. Case discussed. Phone consult only. Patient/family counseled. Old medical records reviewed. Disposition: Transferred. CLINICAL IMPRESSION Prostate cancer. Metastases present. Hematuria. Sepsis. Urinary retention. (Electronically signed by Jimmie Olmstead MD 07/29/2016 17:22)
--- NOTE | 2016-07-29 14:54 | ED NURSING NOTES ---
Clinical Report - Nurses [facility] [place] [address] 07/29/2016 10:16 Patient: MIKAYLA PEPPER TRIAGE Triage time 10:21. Acuity: LEVEL 3. Chief Complaint: SYNCOPE and (felt faint, strange for 10-20 minutes, did not fall, mild abdominal pain). Alert. JOSH COMA SCORE: [place] Coma Scale: 15- eyes open spontaneously (4); best verbal response- oriented x 4 (5); best motor response- obeys commands (6). --10:29 Josefina Coats R.N. 10:21 07/29/16. BP: 111/55. HR: 100. RR: 16. O2 saturation: 100% on room air. Temp: 99 F (oral). Pain level now: 06/10. Additional comments: groin pain, pt not sure which side of the groin. --10:29 Josefina Coats R.N. Weight: 70.3 kg stated. Height/Length: 72 inches Per Patient. BMI: 21. --10:23 Josefina Coats R.N. Medications Lupron Depot Intramuscular. Xtandi Oral. --10:25 Josefina Coats R.N. Zofran Oral, daily as needed. --10:25 Jolie Rascon R.N. Hydrocodone-Acetaminophen Oral (Tablet 10-325 mg), as needed. --10:27 Josefina Coats R.N. Promethazine HCl Oral, as needed. --11:55 Jolie Rascon R.N. Xarelto Oral. --11:56 Jolie Rascon R.N. W24-Fsdutn Oral. --11:56 Jolie Rascon R.N. Pantoprazole Sodium Oral. --11:56 Jolie Rascon R.N. The following entry was struck and corrected by Jolie Rascon R.N., 11:55 (07/29/16) Reason for correction - other(correction). <<STRICKEN ENTRY-- Zofran Oral. --10:25 Josefina Coats R.N. --END STRIKE>> The following entry was struck by Jimmie Olmstead MD, 11:34 (07/29/16) Reason - other. <<STRICKEN ENTRY-- Cipro Oral. --10:25 Josefina Coats R.N. --END STRIKE>>. Allergies No Known Drug Allergy. --10:25 Josefina Coats R.N. History Arrived by EMS, and (medic [facility]). Historian: patient and family. Accompanied by family. Primary physician (Ana). This started just prior to arrival and today. Treatment [employer]: (Vicodin). SOCIAL HX: Smoker- current status unknown. No alcohol use or drug use. FALL RISK ASSESSMENT: Fall risk assessment completed per protocol. Risk factors identified include patient age greater than 65 years and history of fall. Fall interventions initiated. Instructed not to get up without assistance. --10:29 Josefina Coats R.N. Primary physician ([facility]u for oncology, Amy Ashton at [facility] for urology). --10:31 Josefina Coats R.N. Primary physician (family corrected that urologist is in [facility]). --10:31 Josefina Coats R.N. Primary physician (Dr Amy Bermeo). --10:34 Josefina Coats R.N. SOCIAL HX: Former smoker, end date 1974. --10:35 Josefina Coats R.N. PROBLEMS: Dehydration. Possible mets to bone. Giles Catheter. UTI - Urinary Tract Infection. Anemia. Pulmonary Embolism. Hypercholesterolemia. Prostate Cancer. 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 --10:21 Josefina Coats R.N. ADDITIONAL SURGERIES: Biopsy of prostate. Right knee. Shoulder Surgery. Tonsillectomy. Vasectomy. --10:21 Josefina Coats R.N. Interventions ID band on patient. To room. --10:29 Josefina Coats R.N. PHYSICAL ASSESSMENT 10:30 07/29/16. GENERAL / NEURO / PSYCH: Alert. --10:30 Josefina Coats R.N. 10:35 AM. To room via stretcher. GENERAL / NEURO / PSYCH: Alert. Oriented X 4. Appears in no acute distress. Speech within normal limits. He appears mildly underweight (due to CA). RESPIRATORY: Respirations not labored. Decreased breath sounds in the bases bilaterally; decreased breath sounds in the right mid-lung and upper lung; decreased breath sounds in the left mid-lung in the bases bilaterally and upper lung. CVS: Cardiac rhythm: normal sinus rhythm. Capillary refill less than 2 seconds. GI / : Abdomen soft. Bowel sounds within normal limits. Giles catheter in place on arrival returning bloody urine. EXTREMITIES: No lower extremity edema. SKIN: Skin is pale. Skin is warm. Skin is cool. Poor skin turgor. --11:44 Jolie Rascon R.N. NURSING PROGRESS NOTES 10:32 07/29/16. Monitoring of patient in place. Patient gowned. Head of bed elevated. Patient identifiers checked. Call light placed in reach. Bed placed in lowest position. Patient ready for evaluation- chart flagged. --10:32 Josefina Coats R.N. EKG time: (10:34 AM). EKG was performed by a tech and shown to the ED physician. ( Older EKG was pulled from medical records and given to ER DR). --10:42 Prachi Jasso 10:45. Care transferred and report given (to DYLAN Dave). --11:17 Josefina Coats R.N. 11:08 07/29/16. BP: 113/49 (regular adult cuff) taken on the left arm, via an automated monitor, while lying. HR: 100. --11:37 Prachi Jasso 11:10 07/29/16. BP: 88/46 (regular adult cuff) taken on the left arm, via an automated monitor, while sitting. HR: 103. --11:39 Prachi Jasso 11:13 07/29/16. BP: 80/48 (regular adult cuff) taken on the left arm, via an automated monitor, while standing. HR: 103. --11:39 Prachi Jasso 11:15 07/29/16. BP: 120/64 (regular adult cuff) taken on the left arm, via an automated monitor, while lying. HR: 109. --11:40 Prachi Jasso 11:17 07/29/2016 Site #1 accessed indwelling PIV line in the left wrist using a 18g needle (Done in the field with EMS). --11:42 Jolie Rascon R.N. 11:19 07/29/16. ( Critical value lactate is 5.1, will report to ERMD). --11:19 Josefina Coats R.N. 11:42 07/29/2016 Dilaudid (HYDROmorphone HCl PF) IVP 0.5 mg given over 1 minute(s) via site #1. Allergies verified, confirmed 5 rights and sedative warning given to the patient and patient's family. IV patency established. IV site checked: no pain, redness, or swelling. IV flushed thoroughly pre- and post-medication administration. IVP given by RN. --11:42 Jolie Rascon R.N. 11:42 07/29/2016 Started bag #1 999 mL IV Fluids IV NS (Saline); at 999 mL/hr over 1 hour(s) via site #1 via IV pump. Allergies verified and confirmed 5 rights. IV patency established. IV site checked: no pain, redness, or swelling. IV flushed thoroughly pre- and post-medication administration. Completed per protocol. --11:42 Jolie Rascon R.N. 11:43 07/29/2016 Zofran (Ondansetron HCl) IVP 4 mg given over 2 minute(s) via site #1. Allergies verified and confirmed 5 rights. IV patency established. IV site checked: no pain, redness, or swelling. IV flushed thoroughly pre- and post-medication administration. IVP given by RN. --11:43 Jolie Rascon R.N. 10:45 07/29/16. BP: 113/99. HR: 98. RR: 14. O2 saturation: 97% on room air. Temp: 98.7 F (oral). Pain level now: 11/10. --11:50 Jolie Rascon R.N. Cardiac rhythm: normal sinus rhythm. The initial plan of care for this patient has been created This plan of care was discussed with the patient and family. Oxygen administered by nasal cannula at 2 liters. Patient gowned. Warming measures: blanket applied. Reassurance given. The patient is calm. Overall patient status is the same- he states feels the same. RESPIRATORY: Denies difficulty breathing. CVS: Denies chest pain. Cardiac rhythm: normal sinus rhythm. Patient identifiers checked. Call light placed in reach. Side rails up x 2. Bed placed in lowest position. Brakes of bed on. --11:50 Jolie Rascon R.N. late entry - 10:35 AM. ( Report). Care transferred and report received (Bridgette Rocha). --11:51 Jolie Rascon R.N. ( Pt received with indwelling catheter in place, bloody noted, pt states has been bloody since yesterday after home health nurse came in to change it. Pt complaining of hip pain, "all over it hurts but mostly my pelvic area" MD Olmstead aware, labs sent, meds given and IV bolus being administered. NPO in place, family aware of events, emotional support provided. Will monitor). --11:53 Jolie Rascon R.N. ( Orthostatic BP obtained, pt symptomatic on both standing and sitting, became nauseous.). --11:58 Jolie Rascon R.N. 12:00 07/29/2016 IV Fluids IV NS Bag Change: bag #1 completed. Total amount infused: 1000. STARTED bag #2 (1000 mL) at 1000 mL/hr via IV pump. Confirmed 5 rights. IV patency established. IV site checked: no pain, redness, or swelling. IV flushed thoroughly. --12:18 Jolie Rascon R.N. 12:12 07/29/2016 IV Fluids IV NS Discontinued: bag #1 infused. Total amount infused: 1000 mL. IV patency established. IV site checked: no pain, redness, or swelling. IV flushed thoroughly. --12:12 Jolie Rascno R.N. 12:13 07/29/2016 Dilaudid IVP Response: no adverse reaction. --12:13 Jolie Rascon R.N. 12:13 07/29/2016 Zofran IVP Response: no adverse reaction symptoms are the same. The patient feels the same. --12:13 Jolie Rascon R.N. ( Giles bag changed to a bedside drainage bag.). Patient transported to [place]. (1220 PM). --12:23 Jolie Rascon R.N. 13:08 07/29/16. BP: 103/54 (small adult cuff) taken on the left arm, via an automated monitor, while lying. HR: 109. RR: 16. O2 saturation: 100% on nasal cannula at 2 liters/minute. Temp: 98.7 F (oral). Pain level now: 11/10. --13:12 Jolie Rascon R.N. Cardiac rhythm: normal sinus rhythm. athletic monitor, pulse oximeter and NIBP monitor placed on patient; monitor alarms on. Reassurance given. ( Giles catheter removed as ordered ,pt tolerated well clots noted, scan at 149 ml, pt attempting to void). GENERAL / NEURO / PSYCH: Denies restlessness or headache. Patient is calm and cooperative. Affect appears normal. Alert. RESPIRATORY: Denies difficulty breathing. CVS: Denies chest pain. SKIN: Skin is warm. Two patient identifiers checked. Call light placed in reach. --13:12 Jolie Rascon R.N. 13:22 07/29/2016 Zofran (Ondansetron HCl) IVP 4 mg given over 2 minute(s) via site #1. Allergies verified and confirmed 5 rights. IV patency established. IV site checked: no pain, redness, or swelling. IV flushed thoroughly pre- and post-medication administration. IVP given by RN. --13:27 Jolie Rascon R.N. 13:27 07/29/2016 Dilaudid (HYDROmorphone HCl PF) IVP 0.5 mg given over 30 second(s) via site #1. Allergies verified, confirmed 5 rights and sedative warning given to the patient. IV patency established. IV site checked: no pain, redness, or swelling. IV flushed thoroughly pre- and post-medication administration. IVP given by RN. --13:27 Jolie Rascon R.N. 13:53 07/29/2016 Started 3.375 gm of Zosyn (Piperacillin Sod-Tazobactam So) IVPB in bag #1 50 mL; at 100 mL/hr via site #1; Allergies verified and confirmed 5 rights. --13:58 Josefina Coats R.N. 14:21 07/29/2016 Zosyn IVPB Discontinued: bag #1 infused. Total amount infused: 50 mL. IV patency established. IV site checked: no pain, redness, or swelling. IV flushed thoroughly. --14:21 Jolie Rascon R.N. 14:27 07/29/2016 Site #1 reassessed; patent, line flushes easily, infusing well and no signs of infection or infiltration. Line flushed with saline. Poor blood return present. --14:27 Jolie Rascon R.N. 14:00 07/29/16. BP: 102/45. HR: 102. RR: 14. O2 saturation: 98% on nasal cannula at 2 liters/minute. Temp: 98.7 F (oral). Pain level now: 710. --14:27 Jolie Rascon R.N. Cardiac rhythm: normal sinus rhythm. Lights dimmed. Two patient identifiers checked. Call light placed in reach. Bed placed in lowest position. --14:27 Jolie Rascon R.N. ( Helped patient off the bedpan, no void or BM, changed gown and performed chelsea- care, 2X person assist. Bladder scan 488ml). --14:34 Louisa Prachi 14:52 07/29/2016 Dilaudid (HYDROmorphone HCl PF) IVP 0.5 mg given over 20 second(s) via site #1. Allergies verified, confirmed 5 rights and sedative warning given to the patient and patient's family. IV patency established. IV site checked: no pain, redness, or swelling. IV flushed thoroughly pre- and post-medication administration. IVP given by RN. --14:52 Jolie Rascon R.N. ( Attempted to insert Giles as ordered unsuccessfully, MD Olmstead aware of it, dilaudid given as ordered. NPO maintained. Pt temp is now 99.1, zosyn given will notify ). GENERAL / NEURO / PSYCH: Denies anxiety, restlessness or headache. RESPIRATORY: Denies difficulty breathing. Respiratory distress present. CVS: Denies chest pain. SKIN: Skin is warm. --15:05 Jolie Rascon R.N. 15:01 07/29/16. BP: 102/45 (small adult cuff) taken on the left arm, via an automated monitor, while lying. HR: 99. O2 saturation: 100% on nasal cannula at 2 liters/minute. Temp: 99.1 F (oral). Pain level now: 09/10. --15:05 Jolie Rascon R.N. Care transferred and report given (BRIDGETTE Cole). --15:07 Jolie Rascon R.N. ( Pt has been placed on a bedpan.). --15:24 Douglas Treadwell R.N. ( Pt is still having blood from the penis. Pt is more confused and trying to get out of bed to go to the bathroom. Pt has been placed on a bedpan.). --15:55 Douglas Treadwell R.N. 15:51 07/29/16. BP: 127/58. HR: 102. RR: 19. O2 saturation: 95%. Pain level now 08/10. --15:55 Douglas Treadwell R.N. ( Pt does have redness on the coccyx with no skin breakdown. Pt is taken care of by his and son that lives at home.). --16:00 Douglas Treadwell R.N. ( Report given to Ellie ANGELES at [facility].). --16:10 Douglas Treadwell R.N. ( Son and are present in the room and was told about the transfer to [facility] and the room number.). --16:15 Douglas Treadwell R.N. 16:14 07/29/16. BP: 100/51. HR: 96. RR: 15. O2 saturation: 95%. Pain level now 07/11. --16:15 Douglas Treadwell R.N. DISPOSITION / DISCHARGE Departure time: 16:43. Condition at departure: improved. ( Pt has no complaints of pain and was moved to the [facility] stretcher by 3 people.). No learning barriers present. The patient was discharged by the physician. ( [facility] is transporting the pt to [facility]. Pt was placed on the monitor. RN was given report and is going to room 1030.). --16:44 Douglas Treadwell R.N. Departure time: 16:44. ( IV was left in place. Family will be following the ambulance.). --16:44 Douglas Treadwell R.N. Locked/Released at 07/29/2016 16:44 by Douglas Treadwell R.N.
--- NOTE | 2016-07-29 14:54 | ED CLINICAL REPORT ---
Clinical Report - Physicians/Mid Levels [facility] [address] [place] [address] 07/29/2016 10:16 Patient: MIKAYLA PEPPER Time Seen: 10:32. Arrived- By private vehicle. Historian- patient and son. HISTORY OF PRESENT ILLNESS The patient has recovered. Chief Complaint: NEAR-SYNCOPE. This occurred today. It was abrupt in onset. Event was witnessed. No loss of consciousness. He collapsed. The patient had preceding symptoms of light-headedness and nausea. No preceding symptoms of chest pain or abdominal pain. At time of event, he had just stood up. Experienced repeated episodes of near syncope. No injuries noted. He currently has weakness. Currently has nausea. No headache currently. (Patient has a history of metastatic prostate cancer. His home health nurse yesterday and changed his Kenny catheter. Approximately 30 minutes later he noted large amounts of blood in the catheter bag which has persisted since. He complains of diffuse abdominal pain which is greatest over his bladder area. Additionally he feels tired and weak.). REVIEW OF SYSTEMS No chills, fever, sweats, calf pain or chest pain. No difficulty breathing, pedal edema, palpitations, black stools or bloody stools. No diarrhea or vomiting. He has had abdominal pain (since yesterday). The pain is described as located in the suprapubic region. He has had constipation. He has had similar symptoms previously. He has had nausea. The patient has had hematuria (since yesterday afternoon - it started about half an hour after his kenny was changed by his home health nurse). All systems otherwise negative, except as recorded above. PAST HISTORY ( PCP (Bhavesh) Urology (Dr Amy Bermeo) Oncology (Stu)). Problems: Dehydration. Possible mets to bone. Kenny Catheter. UTI - Urinary Tract Infection. Anemia. Pulmonary Embolism. Hypercholesterolemia. Prostate Cancer. Additional Surgeries: Biopsy of prostate. Right knee. Shoulder Surgery. Tonsillectomy. Vasectomy. Medications: Hydrocodone-Acetaminophen Oral (Tablet 10-325 mg), as needed. Lupron Depot Intramuscular. Xtandi Oral. Zofran Oral. Allergies: No Known Drug Allergy. SOCIAL HISTORY Former smoker, end date 1974. No alcohol use. Is a local resident. He lives with a family member. Has good social support. FAMILY HISTORY Diabetes in first-degree relative (mother). ADDITIONAL NOTES The nursing notes have been reviewed. PHYSICAL EXAM Vital Signs: 07/29/2016 10:21 BP: 111/55. HR: 100. RR: 16. O2 saturation: 100%. Temp: 99 F. Pain level now: 06/10. Have been reviewed. Appearance: Alert. He appears frail, elderly and older than stated age. Eyes: Pupils equal, round and reactive to light. ENT: Dry mucous membranes present. Neck: Normal inspection. Neck supple. CVS: Tachycardia. Respiratory: No respiratory distress. Breath sounds normal. Abdomen: Soft. Moderate tenderness diffusely and in the suprapubic area. Back: (kyphotic). Skin: Skin warm and dry. Normal skin color. Normal skin turgor. Extremities: Extremities exhibit normal ROM. No calf tenderness. No lower extremity edema. Neuro: Alert. No cerebellar findings. No motor deficit. No sensory deficit. LABS, X-RAYS, AND EKG EKG: Rate: 99. Left anterior fascicular block. Incomplete RBBB. Decreased QRS voltage. Non-specific ST segment / T wave abnormalities. Changes present when compared to prior EKG. (12 June 2016 he was tachycardic at that time otherwise without significant changes). Chest X-ray: No acute disease. The X-rays were interpreted by the radiologist and contemporaneously by me. Abdominal CT: IMPRESSION: 1. Malpositioned Kenny catheter with the balloon inflated in the proximal penile urethra. 2. Severe bilateral obstructive uropathy secondary to bladder outlet obstruction, either from known prostate cancer, treatment complication, or from malpositioned Kenny catheter. 3. There is urinary bladder wall irregularity, perivesicular inflammation, and diffuse pelvic inflammatory changes which may be secondary to an infectious cystitis (potentially emphysematous cystitis), obstructive uropathy, and/or treatment change. 4. Diminutive inferior vena cava suggestive of low volume status. 5. Osseous metastases consistent with prostate cancer primary. 6. Stable, large chronic, low-density pericardial effusion. The study was interpreted contemporaneously by me and discussed with the radiologist. Laboratory Tests: UA-Culture if indicated: (KEATON: 07/29/2016 12:10) ( [facility] [place]/29/[place] 12:36) Final results Test Result Flag Units (Reference) URINE COLOR BROWN URINE APPEARANCE TURBID URINE GLUCOSE NEGATIVE (NEGATIVE) URINE BILIRUBIN NEGATIVE (NEGATIVE) URINE KETONE NEGATIVE (NEGATIVE) URINE SPECIFIC GRAVITY 1.020 (1.010-1.030) URINE PH 8.0 (5.0-8.0) URINE PROTEIN 3+ (NEGATIVE) URINE UROBILINOGEN 0.2 EU/dL (0.2-1.0) URINE NITRITE POSITIVE (NEGATIVE) URINE BLOOD 3+ (NEGATIVE) URINE LEUK ESTERASE POSITIVE (NEGATIVE) URINE RBC >100 (TNTC) rbc/hpf (0-1) URINE WBC TNTC wbc/hpf (0-1) URINE EPITHELIAL CELLS NONE SEEN EPI/hpf (0-5) URINE BACTERIA MANY (4+) (NONE SEEN) URINE COMMENT CULTURE INDICATED SPECIMEN GROSSLY BLOODY.URINE CULTURES ARE SET-UP BASED ON THE FOLLOWING CRITERIA:POSITIVE NITRITEPOSITIVE LEUKOCYTE ESTERASEGREATER THAN 10 WHITE BLOOD CELLSMODERATE (2+) OR GREATER BACTERIA CBC w Diff: (KEATON: 07/29/2016 10:45) ( [facility] [place] 07/29/2016 11:58) Final results Test Result Flag Units (Reference) WHITE BLOOD COUNT 13.8 H K/uL (4.5-11.5) MANUAL DIFFERENTIAL TO FOLLOW. RED BLOOD COUNT 3.55 L M/uL (4.50-5.90) HEMOGLOBIN 10.9 L gm/dL (13.5-17.5) HEMATOCRIT 32.4 L % (41.0-53.0) MEAN CELL VOLUME 91 fL (80-100) MEAN CORPUSCULAR HGB 31 pg (26-34) MEAN CORPUSCULAR HGB CONC 34 g/dL (31-37) RED CELL DISTRIBUTION WIDTH 16.6 H % (11.6-14.8) PLATELET COUNT 115 L K/uL (150-400) POLY % 56 % (50-75) BAND % 38 H % (0-8) LYMPH 5 L % (25-40) MONO 0 L % (3-14) EOSINOPHIL % 0 % (0-4) BASOPHIL % 0 % (0-2) METAMYELOCYTE % 1 % (0-1) MYELOCYTE 0 % (0-1) OTHER CELL TYPE 0 ANISOCYTOSIS 1+ PT with INR: (KEATNO: 07/29/2016 10:45) ( [facility] 07/29/2016 11:09) Final results Test Result Flag Units (Reference) INR 1.0 (0.8-1.2) Low Intensity Therapy: INR 1.5-2.0 PT range 18.5-23.1Mod.Intensity Therapy: INR 2.0-3.0 PT range 23.1-31.5High Intensity Therapy: INR 2.5-3.5 PT range 27.4-35.5High Intensity Therapy 2: INR 3.0-4.0 PT range 31.5-39.3 APTT 37 H SECONDS (24-34) BNP: (KEATON: 07/29/2016 10:45) ( [facility] 07/29/2016 11:22) Final results Test Result Flag Units (Reference) B-TYPE NATRIURETIC PEPTIDE 182 H pg/ml (5-100) Lactate, Serum: (KEATON: 07/29/2016 10:45) ( [facility] 07/29/2016 11:19) Final results Test Result Flag Units (Reference) LACTIC ACID 5.1 H mmol/L (0.4-2.0) CRITICAL RESULTS CALLEDCalled to TERRENCE ODBBS RN 07/29/16 1117Were 2 patient identifiers used? YWas the result read back? Y [id number]: (KEATON: 07/29/2016 10:45) ( [facility] 07/29/2016 12:08) Final results Test Result Flag Units (Reference) PROCALCITONIN 3.7 H ng/mL (0-0.5) PCT Concentration: Interpretation : Risk/option for action PCT <=0.5 ng/mL : Systemic : Low risk forinfection(sepsis): progression to severeis not likely. : systemic infection.Local bacterial : CAUTION-PCT levelsinfection is : below 0.5 ng/mL do notpossible. : exclude an infection,because localizedinfections (withoutsystemic signs) may beassociated with suchlow levels. If PCT ismeasured very earlyafter a bacterialchallenge (usually <6hours), these valuesmay still be low. Inthis case PCT shouldbe re-assessed 6-24hours later. PCT >0.5 and : Systemic infection: Moderate risk for<= 2 ng/mL : (sepsis) is : progression to severepossible, but : systemic infection.other conditions : The patient should beare known to : closely monitoredelevate PCT. : both clinically andby re-assessing PCTwithin 6-24 hours. PCT > 2 ng/mL : Systemic infection: High risk for(sepsis) is likely: progression to severeunless other : systemic infection.causes are known. : PCT >= 10 ng/mL : Important systemic: High likelihood ofinflammatory : severe sepsis orresponse, almost : septic shock.exclusively due to:severe bacterial :sepsis or septic :shock. : CMP: (KEATON: 07/29/2016 10:45) ( MsgRcvd 07/29/2016 11:26) Final results Test Result Flag Units (Reference) GLUCOSE 140 H mg/dL (70-110) BUN 42 H mg/dL (7-18) CREATININE 1.8 H mg/dL (0.6-1.3) Estimated GFR 39.29 mL/min Estimated GFR- 47.62 mL/min Note: Persistent reduction over 3 months in eGFR<60 mL/min/1.73 m2 defines CKD. Patients with eGFR values>=60 mL/min/1.73 m2 may also have CKD if evidence ofpersistent proteinuria. Additional information may be foundat www.kidney.org. SODIUM 139 mmol/L (136-145) POTASSIUM 5.3 H mmol/L (3.5-5.1) CHLORIDE 106 mmol/L (98-107) CARBON DIOXIDE 20 L mmol/L (21-32) CALCIUM 8.3 L mg/dL (8.5-10.1) TOTAL PROTEIN 6.6 g/dL (6.4-8.2) ALBUMIN 2.7 L g/dL (3.3-5.0) BILIRUBIN, TOTAL 0.8 mg/dL (0.0-1.0) ALKALINE PHOSPHATASE 78 U/L (46-116) AST (SGOT) 16 U/L (15-37) ALT (SGPT) 14 U/L (12-78) LIPASE 79 U/L (73-393) AMYLASE 26 U/L (25-115) CPK 20 L U/L (24-260) TROPONIN I <0.05 ng/mL (0.00-1.5) TROPONIN REFERENCE RANGE:<0.1 NEGATIVE0.1-1.5 INDETERMINANT>1.5 POSITIVE . PROGRESS AND PROCEDURES Discussed case with hospitalist, ([facility]). Reviewed test results and need for additional work-up. Agreed upon treatment plan, need for patient follow-up and decision to admit. Health care provider will see patient in hospital. Consult obtained from urology. Dr Amy Bemreo. Case discussed. Phone consult only. Patient/family counseled. Old medical records reviewed. Disposition: Transferred. CLINICAL IMPRESSION Prostate cancer. Metastases present. Hematuria. Sepsis. Urinary retention. (Electronically signed by Jimmie Olmstead MD 07/29/2016 17:22)
--- NOTE | 2016-07-29 14:54 | ED ORDER SUMMARY ---
..... Patient: MIKAYLA PEPPER OrderSheet [facility] VisitID: [id number] [place] [address] 75y, M Registration Date/Time: 07/29/2016 ORDER SHEET Weight: 70.3 kg (stated) Allergies: No Known Drug Allergy GENERAL ORDERS: Chest 1V Urgent (10:07/29/2016 Carlos VINCENT) (Ack 10:36 Johnnie CURTIS Tech1) (11:41 EHassan R.N.) Senior Research Manager (Continuous) (:07/29/2016 Carlos VINCENT) (Ack 10:36 Johnnie Harmon1) (11:40 EHassan R.N.) Blood Culture (No) (N/A) Urgent (:07/29/2016 Carlos VINCENT) (Ack 10:36 Johnnie CURTIS Tech1) (11:41 EHassan R.N.) CBC w Diff Urgent (10:07/29/2016 Carlos VINCENT) (Ack 10:36 Johnnie CURTIS TechLiz) (11:40 EHassan R.N.) CMP Urgent (10:07/29/2016 Carlos VINCENT) (Ack 10:36 Johnnie Harmon1) (11:40 EHassan R.N.) UA-Culture if indicated Urgent (10:07/29/2016 Carlos VINCENT) (Ack 10:36 Johnnie Grover) (12:12 EHassan R.N.) PT with INR Urgent (10:07/29/2016 Carlos VINCENT) (Ack 10:36 Johnnie Grover) (11:40 EHassan R.N.) PTT Urgent (10:07/29/2016 Carlos VINCENT) (Ack 10:36 Johnnie Grover) (11:40 EHassan R.N.) Amylase Urgent (:07/29/2016 Carlos VINCENT) (Ack 10:36 Johnnie CURTIS TechLiz) (11:40 EHassan R.N.) Lipase Urgent (10:07/29/2016 Carlos VINCENT) (Ack 10:36 Johnnie CURTIS Tech1) (11:40 EHassan R.N.) CPK Urgent (10:34 07/29/2016 Carlos VINCENT) (Ack 10:36 Johnnie CURTIS Tech1) (11:40 EHassan R.N.) Troponin-I Urgent (10:34 07/29/2016 Carlos VINECNT) (Ack 10:36 Johnnie CURTIS Tech1) (11:40 EHassan R.N.) Lactate, Serum Urgent (10:34 07/29/2016 Carlos VINCENT) (Ack 10:36 Johnnie ER Tech1) (11:41 EHassan R.N.) PCT (Procalcitonin) Urgent (10:34 07/29/2016 Carlos VINCENT) (Ack 10:36 Johnnie CURTIS Tech1) (11:41 EHassan R.N.) BNP Urgent (10:34 07/29/2016 Carlos VINCENT) (Ack 10:36 Johnnie CURTIS Tech1) (11:41 EHassan R.N.) Pulse oximeter (10:34 07/29/2016 Carlos VINCENT) (Ack 10:36 Johnnie CURTIS Tech1) (11:40 EHassan R.N.) EKG - ER Stat (10:34 07/29/2016 Carlos VINCENT) (10:36 RKaruga) (Ack 10:36 Johnnie CURTIS Tech1) Vitals - Orthostatic (10:34 07/29/2016 Carlos VINCENT) (Ack 10:36 Johnnie CURTIS Tech1) (11:30 RKaruga) CT Abd/Pel wo Cont Urgent (11:32 07/29/2016 Carlos VINCENT) (Ack 11:35 Johnnie CURTIS Tech1) (12:20 EHassan R.N.) Blood Culture (No) (N/A) Urgent (11:33 07/29/2016 Carlos VINCENT) (Ack 11:35 Johnnie CURTIS Tech1) (11:41 EHassan R.N.) - (remove kenny, have patient attempt to void then measure PVR with bladder scanner) (12:54 07/29/2016 Carlos VINCENT) (13:08 EHassan R.N.) Kenny Catheter ([address] - one attempt only) (14:17 07/29/2016 Carlos VINCENT) (14:51 EHassahayley R.N.) MEDICATION ORDERS: IV FLUIDS: IV Saline Lock (10:34 07/29/2016 Carlos VINCENT) (12:20 EHassan R.N.) IV NS : initial bolus 500 mL (1000 mL/hr), then 125 mL/hr for 4h (NOW); Urgent (Please start this after orthostatic VS) (10:51 07/29/2016 Carlos VINCENT) (Cancelled: Other11:32 Carlos VINCENT) IV NS : initial bolus 1000 mL (1000 mL/hr), then 1000 mL/hr for X2 (NOW); Urgent (11:32 07/29/2016 Carlos VINCENT) (11:42 EHassan R.N.) Dilaudid IV 0.5 mg (NOW) (11:34 07/29/2016 Carlos VINCENT) (11:42 EHassan R.N.) Zofran IV 4 mg (NOW) (11:34 07/29/2016 Carlos VINCENT) (11:43 EHassan R.N.) Zosyn IV 3.375 gm/50mL (NOW) (12:41 07/29/2016 Carlos VINCENT) (13:58 LSullivan R.N.) Zofran IV 4 mg (NOW) (13:14 07/29/2016 EHassan R.N. verbal order read back to Carlos VINCENT) (13:27 EHassan R.N.) Dilaudid IV 0.5 mg (may give up to 1.5mg in total ) (13:15 07/29/2016 EHassan R.N. verbal order read back to Carlos VINCENT) (13:27 EHassan R.N.) ORDER SHEET NOTES: [Electronically signed by Douglas Treadwell R.N. (16:44 07/29/2016)] [Electronically signed by Jimmie Olmstead MD (17:22 07/29/2016)] [Electronically locked/signed by Douglas Treadwell R.N. (16:44 07/29/2016)]
--- NOTE | 2016-07-29 14:54 | ED NURSING NOTES ---
Clinical Report - Nurses [facility] [place] [address] 07/29/2016 10:16 Patient: MIKAYLA PEPPER TRIAGE Triage time 10:21. Acuity: LEVEL 3. Chief Complaint: SYNCOPE and (felt faint, strange for 10-20 minutes, did not fall, mild abdominal pain). Alert. JOSH COMA SCORE: [place] Coma Scale: 15- eyes open spontaneously (4); best verbal response- oriented x 4 (5); best motor response- obeys commands (6). --10:29 Josefina Coats R.N. 10:21 07/29/16. BP: 111/55. HR: 100. RR: 16. O2 saturation: 100% on room air. Temp: 99 F (oral). Pain level now: 06/10. Additional comments: groin pain, pt not sure which side of the groin. --10:29 Josefina Coats R.N. Weight: 70.3 kg stated. Height/Length: 72 inches Per Patient. BMI: 21. --10:23 Josefina Coats R.N. Medications Lupron Depot Intramuscular. Xtandi Oral. --10:25 Josefina Coats R.N. Zofran Oral, daily as needed. --10:25 Jolie Rascon R.N. Hydrocodone-Acetaminophen Oral (Tablet 10-325 mg), as needed. --10:27 Josefina Coats R.N. Promethazine HCl Oral, as needed. --11:55 Jolie Rascon R.N. Xarelto Oral. --11:56 Jolie Rascon R.N. [id number] Oral. --11:56 Jolie Rascon R.N. Pantoprazole Sodium Oral. --11:56 Jolie Rascon R.N. The following entry was struck and corrected by Jolie Rascon R.N., 11:55 (07/29/16) Reason for correction - other(correction). <<STRICKEN ENTRY-- Zofran Oral. --10:25 Josefina Coats R.N. --END STRIKE>> The following entry was struck by Jimmie Olmstead MD, 11:34 (07/29/16) Reason - other. <<STRICKEN ENTRY-- Cipro Oral. --10:25 Josefina Coats R.N. --END STRIKE>>. Allergies No Known Drug Allergy. --10:25 Josefina Coats R.N. History Arrived by EMS, and (medic 99). Historian: patient and family. Accompanied by family. Primary physician (Ana). This started just prior to arrival and today. 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 SOCIAL HX: Smoker- current status unknown. No alcohol use or drug use. FALL RISK ASSESSMENT: Fall risk assessment completed per protocol. Risk factors identified include patient age greater than 65 years and history of fall. Fall interventions initiated. Instructed not to get up without assistance. --10:29 Josefina Coats R.N. Primary physician ([facility] for oncology, Amy Ashton at [facility] for urology). --10:31 Josefina Coats R.N. Primary physician (family corrected that urologist is in [facility]). --10:31 Josefina Coats R.N. Primary physician (Dr Amy Bermeo). --10:34 Josefina Coats R.N. SOCIAL HX: Former smoker, end date 1974. --10:35 Josefina Coats R.N. PROBLEMS: Dehydration. Possible mets to bone. Giles Catheter. UTI - Urinary Tract Infection. Anemia. Pulmonary Embolism. Hypercholesterolemia. Prostate Cancer. 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 --10:21 Josefina Coats R.N. ADDITIONAL SURGERIES: Biopsy of prostate. Right knee. Shoulder Surgery. Tonsillectomy. Vasectomy. --10:21 Josefina Coats R.N. Interventions ID band on patient. To room. --10:29 Josefina Coats R.N. PHYSICAL ASSESSMENT 10:30 07/29/16. GENERAL / NEURO / PSYCH: Alert. --10:30 Josefina Coats R.N. 10:35 AM. To room via stretcher. GENERAL / NEURO / PSYCH: Alert. Oriented X 4. Appears in no acute distress. Speech within normal limits. He appears mildly underweight (due to CA). RESPIRATORY: Respirations not labored. Decreased breath sounds in the bases bilaterally; decreased breath sounds in the right mid-lung and upper lung; decreased breath sounds in the left mid-lung in the bases bilaterally and upper lung. CVS: Cardiac rhythm: normal sinus rhythm. Capillary refill less than 2 seconds. GI / : Abdomen soft. Bowel sounds within normal limits. Giles catheter in place on arrival returning bloody urine. EXTREMITIES: No lower extremity edema. SKIN: Skin is pale. Skin is warm. Skin is cool. Poor skin turgor. --11:44 Jolie Rascon R.N. NURSING PROGRESS NOTES 10:32 07/29/16. Monitoring of patient in place. Patient gowned. Head of bed elevated. Patient identifiers checked. Call light placed in reach. Bed placed in lowest position. Patient ready for evaluation- chart flagged. --10:32 Josefina Coats R.N. EKG time: (10:34 AM). EKG was performed by a tech and shown to the ED physician. ( Older EKG was pulled from medical records and given to ER DR). --10:42 Prachi Jasso 10:45. Care transferred and report given (to DYLAN aDve). --11:17 Josefina Coats R.N. 11:08 07/29/16. BP: 113/49 (regular adult cuff) taken on the left arm, via an automated monitor, while lying. HR: 100. --11:37 Prachi Jasso 11:10 07/29/16. BP: 88/46 (regular adult cuff) taken on the left arm, via an automated monitor, while sitting. HR: 103. --11:39 Prachi Jasso 11:13 07/29/16. BP: 80/48 (regular adult cuff) taken on the left arm, via an automated monitor, while standing. HR: 103. --11:39 Prachi Jasso 11:15 07/29/16. BP: 120/64 (regular adult cuff) taken on the left arm, via an automated monitor, while lying. HR: 109. --11:40 Prachi Jasso 11:17 07/29/2016 Site #1 accessed indwelling PIV line in the left wrist using a 18g needle (Done in the field with EMS). --11:42 Jolie Rascon R.N. 11:19 07/29/16. ( Critical value lactate is 5.1, will report to ERMD). --11:19 Josefina Coats R.N. 11:42 07/29/2016 Dilaudid (HYDROmorphone HCl PF) IVP 0.5 mg given over 1 minute(s) via site #1. Allergies verified, confirmed 5 rights and sedative warning given to the patient and patient's family. IV patency established. IV site checked: no pain, redness, or swelling. IV flushed thoroughly pre- and post-medication administration. IVP given by RN. --11:42 Jolie Rascon R.N. 11:42 07/29/2016 Started bag #1 999 mL IV Fluids IV NS (Saline); at 999 mL/hr over 1 hour(s) via site #1 via IV pump. Allergies verified and confirmed 5 rights. IV patency established. IV site checked: no pain, redness, or swelling. IV flushed thoroughly pre- and post-medication administration. Completed per protocol. --11:42 Jolie Rascon R.N. 11:43 07/29/2016 Zofran (Ondansetron HCl) IVP 4 mg given over 2 minute(s) via site #1. Allergies verified and confirmed 5 rights. IV patency established. IV site checked: no pain, redness, or swelling. IV flushed thoroughly pre- and post-medication administration. IVP given by RN. --11:43 Jolie Rascon R.N. 10:45 07/29/16. BP: 113/99. HR: 98. RR: 14. O2 saturation: 97% on room air. Temp: 98.7 F (oral). Pain level now: 11/10. --11:50 Jolie Rascon R.N. Cardiac rhythm: normal sinus rhythm. The initial plan of care for this patient has been created This plan of care was discussed with the patient and family. Oxygen administered by nasal cannula at 2 liters. Patient gowned. Warming measures: blanket applied. Reassurance given. The patient is calm. Overall patient status is the same- he states feels the same. RESPIRATORY: Denies difficulty breathing. CVS: Denies chest pain. Cardiac rhythm: normal sinus rhythm. Patient identifiers checked. Call light placed in reach. Side rails up x 2. Bed placed in lowest position. Brakes of bed on. --11:50 Jolie Rascon R.N. late entry - 10:35 AM. ( Report). Care transferred and report received (Bridgette Rocha). --11:51 Jolie Rascon R.N. ( Pt received with indwelling catheter in place, bloody noted, pt states has been bloody since yesterday after home health nurse came in to change it. Pt complaining of hip pain, "all over it hurts but mostly my pelvic area" MD Olmstead aware, labs sent, meds given and IV bolus being administered. NPO in place, family aware of events, emotional support provided. Will monitor). --11:53 Jolie Rascon R.N. ( Orthostatic BP obtained, pt symptomatic on both standing and sitting, became nauseous.). --11:58 Jolie Rascon R.N. 12:00 07/29/2016 IV Fluids IV NS Bag Change: bag #1 completed. Total amount infused: 1000. STARTED bag #2 (1000 mL) at 1000 mL/hr via IV pump. Confirmed 5 rights. IV patency established. IV site checked: no pain, redness, or swelling. IV flushed thoroughly. --12:18 Jolie Rascon R.N. 12:12 07/29/2016 IV Fluids IV NS Discontinued: bag #1 infused. Total amount infused: 1000 mL. IV patency established. IV site checked: no pain, redness, or swelling. IV flushed thoroughly. --12:12 Jolie Rascon R.N. 12:13 07/29/2016 Dilaudid IVP Response: no adverse reaction. --12:13 Jolie Rascon R.N. 12:13 07/29/2016 Zofran IVP Response: no adverse reaction symptoms are the same. The patient feels the same. --12:13 Jolie Rascon R.N. ( Giles bag changed to a bedside drainage bag.). Patient transported to [place]. (1220 PM). --12:23 Jolie Rascon R.N. 13:08 07/29/16. BP: 103/54 (small adult cuff) taken on the left arm, via an automated monitor, while lying. HR: 109. RR: 16. O2 saturation: 100% on nasal cannula at 2 liters/minute. Temp: 98.7 F (oral). Pain level now: 11/10. --13:12 Jolie Rascon R.N. Cardiac rhythm: normal sinus rhythm. compliance monitor, pulse oximeter and NIBP monitor placed on patient; monitor alarms on. Reassurance given. ( Giles catheter removed as ordered ,pt tolerated well clots noted, scan at 149 ml, pt attempting to void). GENERAL / NEURO / PSYCH: Denies restlessness or headache. Patient is calm and cooperative. Affect appears normal. Alert. RESPIRATORY: Denies difficulty breathing. CVS: Denies chest pain. SKIN: Skin is warm. Two patient identifiers checked. Call light placed in reach. --13:12 Jolie Rascon R.N. 13:22 07/29/2016 Zofran (Ondansetron HCl) IVP 4 mg given over 2 minute(s) via site #1. Allergies verified and confirmed 5 rights. IV patency established. IV site checked: no pain, redness, or swelling. IV flushed thoroughly pre- and post-medication administration. IVP given by RN. --13:27 Jolie Rascon R.N. 13:27 07/29/2016 Dilaudid (HYDROmorphone HCl PF) IVP 0.5 mg given over 30 second(s) via site #1. Allergies verified, confirmed 5 rights and sedative warning given to the patient. IV patency established. IV site checked: no pain, redness, or swelling. IV flushed thoroughly pre- and post-medication administration. IVP given by RN. --13:27 Jolie Rascon R.N. 13:53 07/29/2016 Started 3.375 gm of Zosyn (Piperacillin Sod-Tazobactam So) IVPB in bag #1 50 mL; at 100 mL/hr via site #1; Allergies verified and confirmed 5 rights. --13:58 Josefina Coats R.N. 14:21 07/29/2016 Zosyn IVPB Discontinued: bag #1 infused. Total amount infused: 50 mL. IV patency established. IV site checked: no pain, redness, or swelling. IV flushed thoroughly. --14:21 Jolie Rascon R.N. 14:27 07/29/2016 Site #1 reassessed; patent, line flushes easily, infusing well and no signs of infection or infiltration. Line flushed with saline. Poor blood return present. --14:27 Jolie Rascon R.N. 14:00 07/29/16. BP: 102/45. HR: 102. RR: 14. O2 saturation: 98% on nasal cannula at 2 liters/minute. Temp: 98.7 F (oral). Pain level now: 710. --14:27 Jolie Rascon R.N. Cardiac rhythm: normal sinus rhythm. Lights dimmed. Two patient identifiers checked. Call light placed in reach. Bed placed in lowest position. --14:27 Jolie Rascon R.N. ( Helped patient off the bedpan, no void or BM, changed gown and performed chelsea- care, 2X person assist. Bladder scan 488ml). --14:34 Louisa Prachi 14:52 07/29/2016 Dilaudid (HYDROmorphone HCl PF) IVP 0.5 mg given over 20 second(s) via site #1. Allergies verified, confirmed 5 rights and sedative warning given to the patient and patient's family. IV patency established. IV site checked: no pain, redness, or swelling. IV flushed thoroughly pre- and post-medication administration. IVP given by RN. --14:52 Jolie Rascon R.N. ( Attempted to insert Giles as ordered unsuccessfully, MD Olmstead aware of it, dilaudid given as ordered. NPO maintained. Pt temp is now 99.1, zosyn given will notify ). GENERAL / NEURO / PSYCH: Denies anxiety, restlessness or headache. RESPIRATORY: Denies difficulty breathing. Respiratory distress present. CVS: Denies chest pain. SKIN: Skin is warm. --15:05 Jolie Rascon R.N. 15:01 07/29/16. BP: 102/45 (small adult cuff) taken on the left arm, via an automated monitor, while lying. HR: 99. O2 saturation: 100% on nasal cannula at 2 liters/minute. Temp: 99.1 F (oral). Pain level now: 09/10. --15:05 Jolie Rascon R.N. Care transferred and report given (BRIDGETTE Cole). --15:07 Jolie Rascon R.N. ( Pt has been placed on a bedpan.). --15:24 Douglas Treadwell R.N. ( Pt is still having blood from the penis. Pt is more confused and trying to get out of bed to go to the bathroom. Pt has been placed on a bedpan.). --15:55 Douglas Treadwell R.N. 15:51 07/29/16. BP: 127/58. HR: 102. RR: 19. O2 saturation: 95%. Pain level now 08/10. --15:55 Douglas Treadwell R.N. ( Pt does have redness on the coccyx with no skin breakdown. Pt is taken care of by his and son that lives at home.). --16:00 Douglas Treadwell R.N. ( Report given to Ellie ANGELES at [facility].). --16:10 Douglas Treadwell R.N. ( Son and are present in the room and was told about the transfer to [facility] and the room number.). --16:15 Douglas Treadwell R.N. 16:14 07/29/16. BP: 100/51. HR: 96. RR: 15. O2 saturation: 95%. Pain level now 07/11. --16:15 Douglas Treadwell R.N. DISPOSITION / DISCHARGE Departure time: 16:43. Condition at departure: improved. ( Pt has no complaints of pain and was moved to the [facility] stretcher by 3 people.). No learning barriers present. The patient was discharged by the physician. ( [facility] is transporting the pt to [facility]. Pt was placed on the monitor. RN was given report and is going to room 1030.). --16:44 Douglas Treadwell R.N. Departure time: 16:44. ( IV was left in place. Family will be following the ambulance.). --16:44 Douglas Treadwell R.N. Locked/Released at 07/29/2016 16:44 by Douglas Treadwell R.N.
--- NOTE | 2016-07-29 17:22 | ED MED RECONCILIATION SUMMARY ---
Patient: MIKAYLA PEPPER Medication Reconciliation Report [facility] VisitID: [id number] [address] [place] [address] 75y, M Registration Date/Time: 07/29/2016 Weight: 70.3 kg Height/Length: 72 in. BMI: 21.0 ALLERGIES: No Known Drug Allergy The patient's Home Medications are listed below: THE FOLLOWING MEDICATIONS NEED TO BE RECONCILED: S92-[id number] Oral Hydrocodone-Acetaminophen Oral (10-325 mg) Lupron Depot Intramuscular Pantoprazole Sodium Oral Promethazine HCl Oral Xarelto Oral Xtandi Oral Zofran Oral, daily The source(s) of the original Home Medication information: Not obtained. The following Medications were given to the patient in the Emergency Department: Dilaudid [IVP] IVP 0.5 mg, administered: 07/29/2016 11:42:00 AM IV NS IV Fluids bolus 0, then 999 mL/hr, administered: 07/29/2016 11:42:00 AM Zofran [IVP] IVP 4 mg, administered: 07/29/2016 11:43:00 AM Dilaudid [IVP] IVP 0.5 mg, administered: 07/29/2016 1:27:00 PM Zofran [IVP] IVP 4 mg, administered: 07/29/2016 1:22:00 PM Zosyn [IVPB] IVPB bolus 0, then 3.375 gm 100 mL/hr, administered: 07/29/2016 1:53:00 PM Dilaudid [IVP] IVP 0.5 mg, administered: 07/29/2016 2:52:00 PM The following Medications were prescribed to the patient: None.
--- NOTE | 2016-07-29 17:22 | ED DISCHARGE INSTRUCTIONS ---
Patient: MIKAYLA PEPPER General Instructions [facility] VisitID: [id number] [address] [place] [address] 75y, M Registration Date/Time: 07/29/2016 Prostate cancer. Metastases present. Hematuria. Sepsis. Urinary retention. (Electronically signed by Jimmie Olmstead MD 07/29/2016 17:22)
--- NOTE | 2016-07-29 17:22 | ED MED RECONCILIATION SUMMARY ---
Patient: MIKAYLA PEPPER Medication Reconciliation Report [facility] VisitID: [id number] [address] [place] [address] 75y, M Registration Date/Time: 07/29/2016 Weight: 70.3 kg Height/Length: 72 in. BMI: 21.0 ALLERGIES: No Known Drug Allergy The patient's Home Medications are listed below: THE FOLLOWING MEDICATIONS NEED TO BE RECONCILED: [id number] Oral Hydrocodone-Acetaminophen Oral (10-325 mg) Lupron Depot Intramuscular Pantoprazole Sodium Oral Promethazine HCl Oral Xarelto Oral Xtandi Oral Zofran Oral, daily The source(s) of the original Home Medication information: Not obtained. The following Medications were given to the patient in the Emergency Department: Dilaudid [IVP] IVP 0.5 mg, administered: 07/29/2016 11:42:00 AM IV NS IV Fluids bolus 0, then 999 mL/hr, administered: 07/29/2016 11:42:00 AM Zofran [IVP] IVP 4 mg, administered: 07/29/2016 11:43:00 AM Dilaudid [IVP] IVP 0.5 mg, administered: 07/29/2016 1:27:00 PM Zofran [IVP] IVP 4 mg, administered: 07/29/2016 1:22:00 PM Zosyn [IVPB] IVPB bolus 0, then 3.375 gm 100 mL/hr, administered: 07/29/2016 1:53:00 PM Dilaudid [IVP] IVP 0.5 mg, administered: 07/29/2016 2:52:00 PM The following Medications were prescribed to the patient: None.
--- NOTE | 2016-07-29 17:22 | ED DISCHARGE INSTRUCTIONS ---
Patient: MIKAYLA PEPPER General Instructions [facility] VisitID: [id number] [address] [place] [address] 75y, M Registration Date/Time: 07/29/2016 Prostate cancer. Metastases present. Hematuria. Sepsis. Urinary retention. (Electronically signed by Jimmie Olmstead MD 07/29/2016 17:22)
--- NOTE | 2016-07-29 17:22 | ED MAR SUMMARY ---
..... Medication Administration Record [facility] [address] [facility] [place] [address] Patient: MIKAYLA PEPPER Visit ID: [id number] 75y, M Weight: 70.3 kg Height/Length: 72 in BMI: 21 ALLERGIES: No Known Drug Allergy Start 11:42 07/29/2016 Jolie Rascno R.N., Stop 12:12 07/29/2016 Jolie Rascon R.N. Medication Administered: IV NS (SALINE), Dose: IV Fluids over 1 hour(s), Rate: 999 mL/hr, Dispensed: 999 mL bag, Site: #1 left wrist. Medication Ordered: IV NS : initial bolus 1000 mL (1000 mL/hr), then 1000 mL/hr for X2 (NOW); Urgent. Given 11:42 07/29/2016 Jolie Rascon R.N. Medication Administered: DILAUDID [IVP] (HYDROMORPHONE HCL PF), Dose: 0.5 mg IVP over 1 minute(s), Site: #1 left wrist. Medication Ordered: Dilaudid IV 0.5 mg (NOW). Given 11:43 07/29/2016 Jolie Rascon R.N. Medication Administered: ZOFRAN [IVP] (ONDANSETRON HCL), Dose: 4 mg IVP over 2 minute(s), Site: #1 left wrist. Medication Ordered: Zofran IV 4 mg (NOW). Given 13:22 07/29/2016 Jolie Rascon R.N. Medication Administered: ZOFRAN [IVP] (ONDANSETRON HCL), Dose: 4 mg IVP over 2 minute(s), Site: #1 left wrist. Medication Ordered: Zofran IV 4 mg (NOW). Given 13:27 07/29/2016 Jolie Rascon R.N. Medication Administered: DILAUDID [IVP] (HYDROMORPHONE HCL PF), Dose: 0.5 mg IVP over 30 second(s), Site: #1 left wrist. Medication Ordered: Dilaudid IV 0.5 mg (may give up to 1.5mg in total ). Start 13:53 07/29/2016 Josefina Coats R.N., Stop 14:21 07/29/2016 Jolie Rascon R.N. Medication Administered: ZOSYN [IVPB] (PIPERACILLIN SOD-TAZOBACTAM SO), Dose: 3.375 gm IVPB, Rate: 100 mL/hr, Dispensed: 50 mL bag, Site: #1 left wrist. Medication Ordered: Zosyn IV 3.375 gm/50mL (NOW). Given 14:52 07/29/2016 Jolie Rascon R.N. Medication Administered: DILAUDID [IVP] (HYDROMORPHONE HCL PF), Dose: 0.5 mg IVP over 20 second(s), Site: #1. Medication Ordered: Dilaudid IV 0.5 mg (may give up to 1.5mg in total ).
--- NOTE | 2016-07-29 17:22 | ED MAR SUMMARY ---
..... Medication Administration Record [facility] [address] [facility] [place] [address] Patient: MIKAYLA PEPPER Visit ID: [id number] 75y, M Weight: 70.3 kg Height/Length: 72 in BMI: 21 ALLERGIES: No Known Drug Allergy Start 11:42 07/29/2016 Jolie Rascon R.N., Stop 12:12 07/29/2016 Jolie Rascon R.N. Medication Administered: IV NS (SALINE), Dose: IV Fluids over 1 hour(s), Rate: 999 mL/hr, Dispensed: 999 mL bag, Site: #1 left wrist. Medication Ordered: IV NS : initial bolus 1000 mL (1000 mL/hr), then 1000 mL/hr for X2 (NOW); Urgent. Given 11:42 07/29/2016 Jolie Rascon R.N. Medication Administered: DILAUDID [IVP] (HYDROMORPHONE HCL PF), Dose: 0.5 mg IVP over 1 minute(s), Site: #1 left wrist. Medication Ordered: Dilaudid IV 0.5 mg (NOW). Given 11:43 07/29/2016 Jolie Rascon R.N. Medication Administered: ZOFRAN [IVP] (ONDANSETRON HCL), Dose: 4 mg IVP over 2 minute(s), Site: #1 left wrist. Medication Ordered: Zofran IV 4 mg (NOW). Given 13:22 07/29/2016 Jolie Rascon R.N. Medication Administered: ZOFRAN [IVP] (ONDANSETRON HCL), Dose: 4 mg IVP over 2 minute(s), Site: #1 left wrist. Medication Ordered: Zofran IV 4 mg (NOW). Given 13:27 07/29/2016 Jolie Rascon R.N. Medication Administered: DILAUDID [IVP] (HYDROMORPHONE HCL PF), Dose: 0.5 mg IVP over 30 second(s), Site: #1 left wrist. Medication Ordered: Dilaudid IV 0.5 mg (may give up to 1.5mg in total ). Start 13:53 07/29/2016 Josefina Coats R.N., Stop 14:21 07/29/2016 Jolie Rascon R.N. Medication Administered: ZOSYN [IVPB] (PIPERACILLIN SOD-TAZOBACTAM SO), Dose: 3.375 gm IVPB, Rate: 100 mL/hr, Dispensed: 50 mL bag, Site: #1 left wrist. Medication Ordered: Zosyn IV 3.375 gm/50mL (NOW). Given 14:52 07/29/2016 Jolie Rascon R.N. Medication Administered: DILAUDID [IVP] (HYDROMORPHONE HCL PF), Dose: 0.5 mg IVP over 20 second(s), Site: #1. Medication Ordered: Dilaudid IV 0.5 mg (may give up to 1.5mg in total ).
== END 2016-07-29 16:44 | disposition short-term general hospital (02) ==
LOC: ED SRH 10:13
DX: A41.9 Sepsis, unspecified organism (principal); R31.9 Hematuria, unspecified; R33.9 Retention of urine, unspecified; C61 Malignant neoplasm of prostate; Z79.899 Other long term (current) drug therapy
CPT/HCPCS: 80172; 81240; 90004; 90065; 90074; 90100; 90148; 90469; 90616; 91320; 91643; 92031; 92235; 92530; 92610; 93004; 94001; 94060; 95059